=== PATIENT | male | born 1955 | race Caucasian/White ===

== ENCOUNTER → 2018-06-07 | Outpatient (CLI) | payer OTHER ==
[2015-09-26 20:30] VITALS: BP 151/77
[~2018-06-07] MED LIST: AMLO10TA2 PO; AMLO1CAP12 PO; ASPI-39 PO; AZEL137S3 NS; CELE200C PO; CYCL10TA2 PO; FEXO1TAB31 PO; FLUT16SP NS; FURO-68 PO; FURO-69 PO; MULT-658 PO; OLME1TAB23 PO; OXYC-327 PO; POTA20TA12 PO; POTA99TA10 PO; SIMV20TA3 PO; WARF-78 PO
--- NOTE | 2018-06-07 15:26 | KCIC ---
Left lower extremity venous duplex study 06/07/2018 Clinical History: Lower extremity pain and edema. Technique: Using a combination of real time ultrasound imaging and color-flow and pulse Doppler imaging techniques, including spectral analysis, graded compression and augmentation, duplex evaluation of the deep venous system of the left lower extremity was performed. Multiple images were obtained. Findings: There is no sonographic evidence of deep venous thrombosis involving the visualized deep venous structures of the left lower extremity Impression: No evidence of deep venous thrombosis involving the left lower extremity Electronically signed by: Collins Hester MD (06/07/2018 3:23 PM) [facility]
== END | disposition home or self-care (01) ==
LOC: KCIC US 14:16
PROVIDERS: ATTEND Internal Medicine
DX: M79.662 Pain in left lower leg (principal); M79.89 Other specified soft tissue disorders; I10 Essential (primary) hypertension; E78.5 Hyperlipidemia, unspecified
CPT/HCPCS: 93971

== ENCOUNTER 2018-07-20 07:50 | Outpatient (CLI) | payer OTHER ==
[~2018-07-20] VITALS: Ht 182.9 cm; Wt 157.9 kg
[2018-07-20] VITALS (8 sets, daily range): BP systolic 121–169; BP diastolic 61–96
[~2018-07-20 07:50] MED LIST changes: -AMLO10TA2 PO; +AMLO10TA6 PO
[2018-07-20] MEDS ORDERED: METF500T16 PO (08:13)
[2018-07-20] MEDS ORDERED: CYCL10TA2 PO (08:13)
[2018-07-20] MEDS ORDERED: MELO15TA23 PO (08:13)
[2018-07-20] MEDS ORDERED: EPIPEN 2-P0.3 MG/0.3 IJ (08:13)
[2018-07-20] MEDS ORDERED: OFLO5DRO7 EACH EAR (08:13)
[2018-07-20] MEDS ORDERED: VENTOLIN HFA18 GM INH (08:13)
[2018-07-20] MEDS ORDERED: COLC0.6T34 PO (08:13)
[2018-07-20] MEDS ORDERED: NAPR-514 PO (08:13)
[2018-07-20 08:16] LABS: BASO % 1 % (0-3); EOS # 0.2 x10^3/uL (0.0-0.7); EOS % 6 % (0-3); HEMATOCRIT 30.4 % (39.0-53.0); HEMOGLOBIN 10.1 g/dL (13.0-17.5); LYMPH # 1.1 x10^3/uL (1.0-4.8); LYMPH % 33 % (24-48); MEAN CORPUSCULAR HEMOGLOBIN 27 pg (25-35); MEAN CORPUSCULAR HGB CONC 33 g/dL (31-37); MEAN CORPUSCULAR VOLUME 82 fL (79-100); MONO # 0.2 x10^3/uL (0.0-1.1); MONO % 7 % (0-9); NEUT # 1.7 x10^3uL (1.8-7.7); NEUT % 53 % (31-73); PLATELET COUNT 262 x10^3/uL (140-400); RED BLOOD COUNT 3.73 x10^6/uL (4.30-5.70); WHITE BLOOD COUNT 3.3 x10^3/uL (4.0-11.0)
[2018-07-20 08:24] LABS: PROTHROMBIN TIME PATIENT 13.9 SEC (11.7-14.0)
[2018-07-20] MEDS ORDERED: LIDOCAINE WITH 8.4% SOD BICARB 3 ML DISP.SYRIN. ONE (09:08)
[2018-07-20] MEDS ORDERED: fentaNYL PF VIAL 100 MCG/2 ML VIAL ONE (09:10)
[2018-07-20] MEDS ORDERED: MIDAZOLAM HCL/PF 2 MG/2 ML VIAL. ONE (09:10)
[2018-07-20] MEDS ORDERED: LIDOCAINE WITH 8.4% SOD BICARB 3 ML DISP.SYRIN. IJ ONE (09:45)
[2018-07-20] MEDS ORDERED: MIDAZOLAM HCL/PF 2 MG/2 ML VIAL. IV ONE (09:45)
[2018-07-20] MEDS ORDERED: fentaNYL PF VIAL 100 MCG/2 ML VIAL IV ONE (09:45)
--- NOTE | 2018-07-20 10:41 | RAD ---
Metastatic skeletal survey, 07/20/2018: HISTORY: Multiple myeloma Multiple images of the bony skeleton were obtained with the following findings delineated: 1. A lateral view of the skull reveals multiple focal lytic lucencies compatible with the history of multiple myeloma. 2. An AP view of the chest reveals loss of definition of the right seventh rib posterolaterally raising the possibility of a lytic lesion. There is not optimally delineated due to the patient's size. No other rib abnormality is detected. 3. AP and lateral views of the cervical spine reveal moderate degenerative disc disease at C5-6. No definite lytic bone lesion is seen. 4. AP and lateral views of the thoracic spine reveal a mild scoliosis with mild scattered marginal spurs. No lytic bone lesion is seen. 5. AP and lateral views of the lumbar spine reveal moderate degenerative disc disease, worst at L2-3. There is moderate facet joint arthropathy in the lower lumbar spine. No destructive bony lesion is evident. 6. An AP view of the pelvis reveals a right total hip prosthesis. No destructive bony lesion is seen. 7. AP views of both humeri and forearms reveal several small lytic lesions, best seen in the mid left humerus and distal right humerus. 8. AP views of both femurs and lower legs reveal several small lytic lesions, best seen in the mid right femoral shaft and the proximal left fibula. IMPRESSION: Scattered lytic bony lesions in the skull and long bones as described above compatible with multiple myeloma. Electronically signed by: Edd Jimenez MD (07/20/2018 10:37 AM) [facility]
--- NOTE | 2018-07-20 10:42 | RAD ---
CT-guided bone marrow biopsy. 07/20/2018 10:37 AM Indication: ELEVATED BLOOD PROTEIN Discussion: The risks and benefits of the procedure, including but not limited to, bleeding and infection were discussed patient. Informed consent was obtained. The patient was brought to the CT scanner and placed in the prone position. A timeout procedure was performed. Lead Driver CT imaging of the pelvis demonstrated left ilium amenable to bone marrow biopsy. The overlying soft tissues were prepped and draped using maximum sterile barrier technique. 1% lidocaine without epinephrine was administered for local anesthesia. Under intermittent CT guidance, an OncControl needle was advanced into the bone marrow of the left iliac crest. 2 Aspirates and 1 core biopsy samples were obtained. Samples were delivered to pathology was present at the time of procedure. The needle was removed and manual pressure held to achieve hemostasis. No immediate complications were identified. The procedure was performed under conscious sedation including continuous cardiopulmonary monitoring via dedicated sedation nurse. Sedation time: 20 minutes Impression: Successful CT-guided bone marrow biopsy of the left iliac crest . PQRS Compliance Statement: One or more of the following individualized dose reduction techniques were utilized for this examination: 1. Automated exposure control 2. Adjustment of the mA and/or kV according to patient size 3. Use of iterative reconstruction technique
--- NOTE | 2018-07-26 19:08 | PATHOLOGY ---
[facility] Accession Number: [id number] . 01 Material submitted: . PART A: BONE MARROW BIOPSY PART B: BONE MARROW CLOT PART C: BONE MARROW ASPIRATE SLIDES PART D: PERIPHERAL SMEARS PART E: BONE MARROW FLOW . 01 Pre-operative diagnosis: . Elevated blood protein . 01 Clinical history: . Elevated blood protein . 02 Diagnosis: Peripheral smear: - Normocytic normochromic anemia, mild, with red cell rouleaux. - Leukopenia, mild. . Bone marrow, aspirate smears, clot section, and core biopsy: - Mild to focally moderately hypercellular marrow showing trilineage hematopoiesis, erythroid hyperplasia, no significant dyspoiesis, and interstitial and focal solid infiltrates of atypical plasma cells showing kappa light chain restriction - findings are compatible with a plasma cell neoplasm. See description comment. - Adequate to mildly increased reticuloendothelial iron stores. . (JPM:mml; 07/26/18) [facility]/07/26/2018 . 02 Comment: The peripheral smear shows a mild normocytic and normochromic anemia with red cell rouleaux and mild leukopenia. The bone marrow is mild to moderately hypercellular and shows trilineage hematopoiesis, erythroid hyperplasia, and interstitial and focal solid infiltrates of atypical plasma cells. The atypical plasma cells show immunophenotypic evidence of kappa light chain restriction. Plasma cells overall comprise approximately 40% of nucleated marrow cells. The findings are indicative of a plasma cell neoplasm and are consistent with plasma cell myeloma. Will need to correlate with other laboratory and radiologic findings for evidence of end-organ damage. . (JPM:mml; 07/26/18) . 02 Electronically signed: . Dayo Naranjo MD, Pathologist NPI- [id number] . 01 Gross description: . A. The specimen is received in formalin, labeled "Keo Pineda, BM BX" and consists of 2 bone cores measuring 0.8 cm and 1.3 cm in length and ranging from 0.2-0.3 cm in diameter. They are entirely submitted in A1 following decalcification. . B. The specimen is received in formalin, labeled "Tanner Pinedat, BM ASP clot" and consists of blood clot measuring 5.0 x 2.5 x 0.5 cm which is entirely submitted in B1-B2. (SDY; 07/20/2018) SYU/SYU . 02 Microscopic: . Laboratory Data: The WBC count is 3.3 K/CMM, and the automated WBC differential reveals 53% neutrophils, 33% lymphs, 7% monos, 6% eos, and 1% baso. The RBC count is 3.73 M/CMM, hemoglobin 10.1 G/DL, hematocrit 30.4%, MCV 82 FL, MCH 27 PG, MCHC 33 G/DL, and the RDW is 20%. The platelet count is 262 K/CMM. . Additional laboratory studies were obtained from Dr. Grijalva' office. The total protein is 11.7 G/DL, and albumin 2.7 G/DL. The creatinine is 0.95 MG/DL. The beta-2 microglobulin is 4.9 MG/L. Serum protein electrophoresis shows a probable monoclonal spike in the beta-gamma region. The paraprotein is 6.29 G/DL. Serum immunofixation shows IgG lambda paraprotein. The serum IgG is 6,954 MG/DL, IgA 24 MG/DL, and IgM less than 20 MG/DL. The kappa free light chain is 1.85 MG/DL, lambda free light chain 0.12 MG/DL, and the kappa/lambda free light chain ratio is 15.42. Urine immunofixation shows an IgG kappa paraprotein. . Peripheral Smear: The peripheral smear is reviewed. The WBC count is mildly decreased. The WBC differential reveals a predominance of segmented neutrophils, with a smaller population of lymphocytes and with several monocytes and eosinophils noted. Neutrophils do not show dysplastic changes. There is a rare macropolycyte. There is no significant neutrophilic left shift. There are no circulating blasts. There is no leukoerythroblastic reaction. The lymphocyte population consists predominantly of small lymphocytes. There are several medium-sized granular lymphocytes. There are no obvious circulating atypical plasma cells. Red blood cells appear normochromic. Red blood cells show mild to moderate anisocytosis and range from normocytic to mildly microcytic. Red blood cells show no significant poikilocytosis. There is red cell rouleax. Platelets appear normal in number and morphology with an occasional large platelet noted. . Aspirate Smears: Two Bucio's-stained and one iron-stained aspirate smears are examined. The smears contain multiple marrow particles. Overall, there is an erythroid hyperplasia. Erythroid maturation appears normoblastic. There are no megaloblastic or overt dysplastic changes. Granulopoiesis qualitatively appears normal. There is no significant left shift or dysplastic changes. Megakaryocytes are increased and are focally clustered. The megakaryocytes are of variable ploidy and both normal and abnormal morphology with some megakaryocytes having hypolobated nuclei. A few megakaryocytes show peripheral cytoplasmic vacuolization. There are foci of mild plasmacytosis showing up to 5%-10% plasma cells. There are also a few small cellular particles and immediately surrounding smears which show a predominance of plasma cells. The plasma cells show anisocytosis. There are enlarged atypical plasma cells which possess enlarged eccentric nuclei containing a nucleolus. Occasional binucleated plasma cells are noted. There is no increase of lymphocytes. There are no cells foreign to the marrow. The iron stain shows mildly increased reticuloendothelial iron stores. No ringed sideroblasts are identified. . Bone Marrow Biopsy and Clot Section: Sections of the bone marrow biopsy reveal bone marrow which ranges between 40-50% and 70-80% cellular. The clot sections contain multiple marrow particles which also range between 50% and 70-80% cellular. Most of the biopsy shows trilineage hematopoiesis with erythroid hyperplasia. Megakaryocytes are focally clustered and are of variable ploidy.There are focal small interstitial infiltrates of plasma cells, and there are two larger areas of sheet-like replacement by atypical plasma cells. The atypical plasma cells possess enlarged eccentric nuclei containing nucleoli. The clot section particles similarly reveal cellular hematopoietic tissue with foci of interstitial plasmacytosis in addition to scattered small particles composed of solid clusters of atypical plasma cells. There are no abnormal lymphoid aggregates, granulomas, or cells foreign to the marrow. To confirm flow cytometric findings and characterize the target cells in a tissue architectural context, immunohistochemical stains for CD138 and in situ hybridization for kappa and lambda light chain are obtained on the biopsy and clot sections and yield the following results: . CD138 (A1): Plasma cells positive having an interstitial distribution and focally present in solid clusters / sheets; plasma cells comprise approximately 40% of nucleated marrow cells. . [place] and lambda HERMANN (A1): Plasma cells show kappa light chain restriction. . CD138 (B1): Plasma cells positive having an interstitial distribution and focally present in small clusters; plasma cells overall comprise approximately 40% of nucleated marrow cells. . [place] and lambda HERMANN (B1): Plasma cells show kappa light chain restriction. . CD138 (B2): Plasma cells positive having an interstitial distribution and focally present in small clusters; plasma cells overall comprise approximately 40% of nucleated marrow cells. . [place] and lambda HERMANN (B2): Plasma cells show kappa light chain restriction. . A reticulin stain obtained on the biopsy shows focal mild increase of reticulin fibers, particularly in the area of diffuse marrow plasmacytosis. The iron stain of the clot section shows adequate to focally mildly increased reticuloendothelial iron stores. No ringed sideroblasts are identified. . Special Studies: Bone marrow submitted for flow cytometry has a viability of 99.2%. Granulocytes comprise 84.3% of total cells and show phenotypic evidence of maturation. Monocytes comprise 3.1% of total cells and co-express CD14 and CD64. CD45 dim, CD34 positive cells comprise 0.9% of total cells. There is a population of monoclonal plasma cells detected which comprise 3.0% of total cells. These plasma cells show cytoplasmic kappa light chain restriction and are CD19 negative, CD38 positive (bright), CD45 negative, CD56 positive, CD117 positive, and CD138 positive (moderate). Lymphocytes comprise 9.1% of total cells. T-cells comprise 86% of lymphoid cells and show a CD4/CD8 ratio of 3.0. NK-cells comprise 7% of lymphoid cells. Mature B-cells comprise 4.0% of lymphoid cells and are polyclonal with a kappa:lambda ratio of 1.6. . Bone marrow submitted for cytogenetic analysis shows a normal male karyotype in all cells analyzed. (JPM:misty/mml; 07/26/2018) . 02 Pathologist provided ICD-10: D47.Z9, D64.9, D72.819, D75.89 . 02 CPT . 624809, 978270, 106294, 178093, 638682, X26238, R97366, S15653, 057651, 511594, 915997 Specimen Comment: A courtesy copy of this report has been sent to Specimen Comment: [phone], , . Specimen Comment: Report sent to ,DR GRIJALVA / DR ROGEL Performed at: 01 [facility] [place] [id number] [facility] [address], [place] [id number] MD Randal Ceballos MD Phone: [phone] Performed at: 02 [facility] [place] [address] [place], [place] [id number] MD Dayo Naranjo MD Phone: [phone]
== END 2018-07-20 10:58 | disposition home or self-care (01) ==
LOC: INTRAD 07:50
PROVIDERS: ATTEND Internal Medicine Hematology & Oncology
DX: D72.819 Decreased white blood cell count, unspecified (principal); D64.89 Other specified anemias; E78.5 Hyperlipidemia, unspecified; I10 Essential (primary) hypertension; G47.30 Sleep apnea, unspecified; E11.9 Type 2 diabetes mellitus without complications; E66.9 Obesity, unspecified; M16.11 Unilateral primary osteoarthritis, right hip; Z96.641 Presence of right artificial hip joint; Z83.3 Family history of diabetes mellitus; Z79.899 Other long term (current) drug therapy; Z79.82 Long term (current) use of aspirin; Z79.01 Long term (current) use of anticoagulants
CPT/HCPCS: 36415; 38222; 77012; 77075; 85025; 85610; 88184; 88185; 88237; J2250; J3010; 99152

== ENCOUNTER 2019-03-07 07:43 | Outpatient (CLI) | payer OTHER ==
[~2019-03-07] VITALS: Ht 182.9 cm; Wt 164.7 kg
[2019-03-07] VITALS (9 sets, daily range): BP systolic 127–141; BP diastolic 61–89
[~2019-03-07 07:43] MED LIST changes: -AMLO10TA6 PO; +AMLO10TA8 PO; +COLC0.6T34 PO; +EPIPEN 2-P0.3 MG/0.3 IJ; +MELO15TA23 PO; +METF500T16 PO; +NAPR-514 PO; +OFLO5DRO7 EACH EAR; -OXYC-327 PO; +OXYC1TAB19 PO; +VENTOLIN HFA18 GM INH
[2019-03-07 08:13] LABS: BASO % 1 % (0-3); EOS # 0.1 x10^3/uL (0.0-0.7); EOS % 3 % (0-3); HEMATOCRIT 32.8 % (39.0-53.0); HEMOGLOBIN 10.9 g/dL (13.0-17.5); LYMPH # 0.8 x10^3/uL (1.0-4.8); LYMPH % 22 % (24-48); MEAN CORPUSCULAR HEMOGLOBIN 29 pg (25-35); MEAN CORPUSCULAR HGB CONC 33 g/dL (31-37); MEAN CORPUSCULAR VOLUME 87 fL (79-100); MONO # 0.3 x10^3/uL (0.0-1.1); MONO % 9 % (0-9); NEUT # 2.3 x10^3uL (1.8-7.7); NEUT % 66 % (31-73); PLATELET COUNT 276 x10^3/uL (140-400); RED BLOOD COUNT 3.76 x10^6/uL (4.30-5.70); RED CELL DISTRIBUTION WIDTH 17.6 % (11.5-14.5); WHITE BLOOD COUNT 3.5 x10^3/uL (4.0-11.0)
[2019-03-07 08:22] LABS: PROTHROMBIN TIME PATIENT 12.6 SEC (11.7-14.0)
[2019-03-07] MEDS ORDERED: LIDOCAINE WITH 8.4% SOD BICARB 3 ML DISP.SYRIN. ONE (08:23)
[2019-03-07] MEDS ORDERED: fentaNYL PF VIAL 100 MCG/2 ML VIAL ONE (08:26)
[2019-03-07] MEDS ORDERED: MIDAZOLAM HCL/PF 2 MG/2 ML VIAL. ONE ×2 (08:26→09:00)
[2019-03-07] MEDS ORDERED: MIDAZOLAM HCL/PF 2 MG/2 ML VIAL. IV ONE (08:30)
[2019-03-07] MEDS ORDERED: fentaNYL PF VIAL 100 MCG/2 ML VIAL IV ONE (08:30)
[2019-03-07] MEDS ORDERED: LIDOCAINE WITH 8.4% SOD BICARB 3 ML DISP.SYRIN. IJ ONE (08:30)
[2019-03-07] MEDS ORDERED: GABA300C18 PO (08:35)
[2019-03-07] MEDS ORDERED: OMEP20TA63 PO (08:35)
[2019-03-07] MEDS ORDERED: ALLO100T PO (08:35)
[2019-03-07] MEDS ORDERED: TRAM50TA PO (08:35)
[2019-03-07] MEDS ORDERED: SULF1TAB24 PO (08:35)
--- NOTE | 2019-03-07 10:20 | NUR ---
Discharge Note: LOBO SINGH Discharge instructions and discharge home medications reviewed with Patient and a copy given. All questions have been answered and understanding verbalized. The following instructions and handouts were given: Post Bone marrow biopsy, and post moderate sedation. Discontinued lines and drains: Right AC PIV with tip intact. Patient discharged to home with daughter Katerin via car.
--- NOTE | 2019-03-07 14:53 | RAD ---
CT-guided bone marrow biopsy. 03/07/2019 2:49 PM Indication: Multiple Myeloma Discussion: The risks and benefits of the procedure, including but not limited to, bleeding and infection were discussed patient. Informed consent was obtained. The patient was brought to the CT scanner and placed in the prone position. A timeout procedure was performed. Hotbed Lever Operator CT imaging of the pelvis demonstrated left ilium amenable to bone marrow biopsy. The overlying soft tissues were prepped and draped using maximum sterile barrier technique. 1% lidocaine without epinephrine was administered for local anesthesia. Under intermittent CT guidance, an OncControl needle was advanced into the bone marrow of the left iliac crest. 2 Aspirates and 1 core biopsy samples were obtained. Samples were delivered to pathology was present at the time of procedure. The needle was removed and manual pressure held to achieve hemostasis. No immediate complications were identified. The procedure was performed under conscious sedation including continuous cardiopulmonary monitoring via dedicated sedation nurse. Sedation time: 20 minutes Impression: Successful CT-guided bone marrow biopsy of the left iliac crest . PQRS Compliance Statement: One or more of the following individualized dose reduction techniques were utilized for this examination: 1. Automated exposure control 2. Adjustment of the mA and/or kV according to patient size 3. Use of iterative reconstruction technique
--- NOTE | 2019-03-16 11:07 | PATHOLOGY ---
[facility] Accession Number: [id number] . 01 Material submitted: . PART A: bone - BONE MARROW BIOPSY PART B: bone - BONE MARROW CLOT PART C: bone - BONE MARROW ASPIRATE SLIDES PART D: bone - PERIPHERAL BLOOD SMEARS PART E: bone - BONE MARROW FLOW . 01 Clinical history: . Multiple myeloma . 02 Diagnosis: Peripheral smear: - Normocytic normochromic anemia, mild. - Leukopenia, mild. . Bone marrow, aspirate smears, clot section, and core biopsy: - Variable normocellular to mildly hypercellular marrow showing trilineage hematopoiesis, no significant dyspoiesis, and a mild to focal moderate interstitial plasmacytosis comprised of atypical plasma cells showing kappa light chain restriction - findings compatible with residual plasma cell neoplasm. - Nearly absent stainable iron stores. . (JPM:re; 03/14/2019) [facility]/03/14/2019 . 02 Comment: The peripheral smear shows mild normocytic normochromic anemia and mild leukopenia. The bone marrow is mildly hypercellular and shows trilineage hematopoiesis, no significant dyspoiesis, and a mild to focal moderate interstitial plasmacytosis comprised of atypical plasma cells showing kappa light chain restriction. The biopsy discloses approximately 20-30% plasma cells, and the clot section discloses between 5% and 15% plasma cells. The findings are indicative of a plasma cell neoplasm and are consistent with residual involvement by plasma cell myeloma. (JPM:re; 03/14/2019) . Special stains: Reticulin stain on A1. Iron stain on B1 and C1. CD138 on A1 and B1. [place] and lambda HERMANN on A1. [place] and lambda HERMANN on B1. . 02 Electronically signed: . Dayo Naranjo MD, Pathologist NPI- [id number] . 01 Gross description: . A. The specimen is received in formalin, labeled "Keo Pineda BM BX". Received is a single needle core of light bennett bone measuring 1.4 cm in length by 0.3 cm in diameter. The specimen is submitted entirely in cassette A1, following light decalcification. . B. The specimen is received in formalin, labeled "Keo Pineda, BM aspirate clot". Received is blood coagulum measuring 3.0 x 2.4 x 0.3 cm in aggregate dimensions. The specimen is filtered and entirely submitted in cassette B1. (CAA; 03/07/2019) QAC/QAC . 02 Microscopic: . Laboratory Data: The WBC count is 3.5 K/CMM, and the automated WBC differential reveals 66% neutrophils, 22% lymphs, 9% monos, 3% eos, and 1% baso. The RBC count is 3.76 M/CMM, hemoglobin 10.9 G/DL, hematocrit 32.8%, MCV 87 FL, MCH 29 PG, MCHC 33 G/DL, and the RDW is 17.6%. The platelet count is 276 K/CMM. . Peripheral Smear: The peripheral smear is reviewed. The WBC count is mildly decreased. The WBC differential reveals a predominance of segmented neutrophils, with smaller populations of lymphocytes and monocytes and a few eosinophils noted. Neutrophils do not show dysplastic changes. There is no significant neutrophilic left shift. There are no circulating blasts. There is no leukoerythroblastic reaction. The lymphocyte population consists predominantly of small lymphocytes. There are several medium-sized granular lymphocytes noted. There are no obvious circulating myeloma cells. Red blood cells predominantly appear normochromic and normocytic. Red blood cells show mild anisocytosis. Red blood cells show minimal poikilocytosis comprised of a few ovalocytes and occasional teardrop red blood cells. Platelets are normal in number and morphology. . Aspirate Smears: Two Bucio's-stained and one iron-stained aspirate smears are examined. The smears contain several cellular marrow particles. The M/E ratio is on the order of 1-2:1. Erythroid maturation predominantly appears normoblastic. There are a few dysplastic erythroid precursors showing binucleation and irregular nuclear shapes. There are no megaloblastic or overt dysplastic changes. Granulopoiesis qualitatively appears normal. There is no significant left shift or dysplastic changes. There is no increase of blasts. Megakaryocytes appear adequate in number and are of variable ploidy. There are foci of mild plasmacytosis showing between 5% and 10% plasma cells. Other areas show a smaller proportion of plasma cells. There are atypical plasma cells. These plasma cells are enlarged, and possess enlarged eccentric nuclei containing a nucleolus. There is no increase of lymphocytes. There are no cells foreign to the marrow. The iron stained smear shows focal reticuloendothelial iron stores. No ringed sideroblasts are identified. . Bone marrow biopsy and clot sections: Sections of the bone marrow biopsy reveal segments of bone marrow and blood clot showing focal aspiration artifact. Preserved areas of the biopsy range between 10% and 60% cellular. The clot section contains multiple marrow particles which range between 20% and 60% cellular. There is trilineage hematopoiesis. There is a good admixture of erythroid and granulocytic precursors, which are present in varying stages of maturation. There is no apparent increase of blasts. Megakaryocytes appear adequate in number and are of variable ploidy. There are foci of perivascular and interstitial plasmacytosis with no areas of sheet-like replacement by plasma cells identified. There are atypical plasma cells present which have enlarged eccentric nuclei containing a nucleolus. There is a small discreet lymphoid aggregate present with the clot section composed predominantly of small lymphocytes having rounded to slightly irregular nuclei. There are no abnormal lymphoid aggregates, granulomas, or cells foreign to the marrow. . To confirm flow cytometric findings and characterize the target cells in a tissue architectural context, immunohistochemical stain for CD138 and in situ hybridization for kappa:lambda light chain are obtained on the biopsy and clot section and yield the following results: . CD138 (A1): Plasma cells positive scattered throughout marrow and focally having a perivascular and more solid interstitial distribution; plasma cells overall comprise 20-30% of nucleated marrow cells. . [place] and lambda HERMANN (A1): Plasma cells show kappa light chain restriction. . CD138 (B1): Plasma cells positive scattered throughout marrow and having a focal perivascular and interstitial distribution; plasma cells overall comprise between 5% and 15% of nucleated marrow cells. . [place] and lambda HERMANN (B1): Plasma cells show kappa light chain restriction. . A reticulin stain obtained on the biopsy shows a focal mild increase of reticulin fibers. The iron stain of the clot section shows nearly absent stainable iron. . Special studies: Bone marrow submitted for flow cytometry has a viability of 99.6%. Granulocytes comprise 84.4% of total cells and show phenotypic evidence of maturation. Monocytes comprise 2.2% of total cells. CD45 dim, CD34 positive cells comprise 0.9% of total cells. Lymphocytes comprise 4.9% of total cells. T-cells comprise 80% of lymphoid cells and show a CD4/CD8 ratio of about 0.5. NK-cells comprise 7% of lymphoid cells. Mature B-cells comprise 11% of lymphoid cells and are polyclonal with a kappa:lambda ratio of 1.7. There is a small population of monoclonal plasma cells, which comprise 0.5% of total cells. These plasma cells are CD38 (bright), CD56, and CD138 (moderate) positive and show cytoplasmic kappa light chain restriction. These plasma cells are CD19 and CD45 negative. . Bone marrow submitted for cytogenetic analysis reveals a normal male karyotype in all cells analyzed. (JPM:re/misty; 03/14/2019) . 02 Pathologist provided ICD-10: D64.9, D72.819, D72.822, D47.Z9 . 02 CPT . 191962, 884685, 248186, 528957, 738984, 059717, 104056, 463927, Y81840, U38035, B58267 Specimen Comment: A courtesy copy of this report has been sent to Specimen Comment: [phone], , . Specimen Comment: Report sent to ,DR DALE / DR ROGEL Performed at: 01 [facility] [address], [place], [place] [id number] MD Randal Ceballos MD Phone: [phone] Performed at: 02 [facility] [address] [place], [place] [id number] MD Dayo Naranjo MD Phone: [phone]
== END 2019-03-07 10:20 | disposition home or self-care (01) ==
LOC: INTRAD 07:43
PROVIDERS: ATTEND Internal Medicine Hematology
DX: C90.00 Multiple myeloma not having achieved remission (principal); Z79.01 Long term (current) use of anticoagulants; Z91.030 Bee allergy status; Z76.82 Awaiting organ transplant status; Z79.899 Other long term (current) drug therapy
CPT/HCPCS: 36415; 38222; 77012; 85025; 85610; 88184; 88185; 88237; 99152; J2250; J3010; 88305; 88311; 88313; 88342; 88364; 88365

== ENCOUNTER 2019-05-07 08:10 | Outpatient (CLI) | payer OTHER ==
[~2019-05-07] VITALS: Ht 182.9 cm; Wt 175.1 kg
[2019-05-07] VITALS (7 sets, daily range): BP systolic 117–174; BP diastolic 64–91
[~2019-05-07 08:10] MED LIST changes: +ALLO100T PO; -AMLO1CAP12 PO; +AMLO1CAP13 PO; +GABA300C18 PO; +OMEP20TA63 PO; +SULF1TAB24 PO; +TRAM50TA PO
[2019-05-07 08:54] LABS: HEMATOCRIT 36.9 % (39.0-53.0); HEMOGLOBIN 12.3 g/dL (13.0-17.5); MEAN CORPUSCULAR VOLUME 83 fL (79-100); RED BLOOD COUNT 4.43 x10^6/uL (4.30-5.70); WHITE BLOOD COUNT 2.2 x10^3/uL (4.0-11.0)
[2019-05-07 08:55] LABS: BASO % 1 % (0-3); EOS % 1 % (0-3); LYMPH # 0.6 x10^3/uL (1.0-4.8); LYMPH % 28 % (24-48); MEAN CORPUSCULAR HEMOGLOBIN 28 pg (25-35); MEAN CORPUSCULAR HGB CONC 33 g/dL (31-37); MONO # 0.3 x10^3/uL (0.0-1.1); MONO % 14 % (0-9); NEUT # 1.2 x10^3/uL (1.8-7.7); NEUT % 56 % (31-73); PLATELET COUNT 291 x10^3/uL (140-400); RED CELL DISTRIBUTION WIDTH 17.9 % (11.5-14.5)
[2019-05-07] MEDS ORDERED: ONDA4TAB12 PO (08:57)
[2019-05-07] MEDS ORDERED: DEXA0.5T PO (08:57)
[2019-05-07] MEDS ORDERED: ALPH100C PO (08:57)
[2019-05-07] MEDS ORDERED: ACYC400T PO (08:57)
[2019-05-07] MEDS ORDERED: ASPI325T8 PO (08:57)
[2019-05-07] MEDS ORDERED: MONT10TA49 PO (08:57)
[2019-05-07] MEDS ORDERED: FURO-69 PO (08:57)
[2019-05-07] MEDS ORDERED: PROC5TAB14 PO (08:57)
[2019-05-07] MEDS ORDERED: CALC500T54 PO (08:57)
[2019-05-07 09:05] LABS: PROTHROMBIN TIME PATIENT 12.1 SEC (11.7-14.0)
[2019-05-07] MEDS ORDERED: LIDOCAINE 1%/EPI 1:100,000 20 ML VIAL. ONE (09:15)
[2019-05-07] MEDS ORDERED: ceFAZolin 1GM IVPB FOR OMNI 100 ML IV ONE (09:56)
[2019-05-07] MEDS ORDERED: MIDAZOLAM HCL/PF 2 MG/2 ML VIAL. ONE ×2 (09:56→10:25)
[2019-05-07] MEDS ORDERED: fentaNYL PF VIAL 100 MCG/2 ML VIAL ONE (09:57)
[2019-05-07] MEDS ORDERED: ceFAZolin 2GM PREMIX 2 GM/50 ML BAG IV ONE (10:00)
[2019-05-07] MEDS ORDERED: LIDOCAINE 1%/EPI 1:100,000 20 ML VIAL. IJ ONE (10:00)
[2019-05-07] MEDS ORDERED: fentaNYL PF VIAL 100 MCG/2 ML VIAL IV ONE (10:00)
[2019-05-07] MEDS ORDERED: MIDAZOLAM HCL/PF 2 MG/2 ML VIAL. IV ONE (10:00)
--- NOTE | 2019-05-07 12:16 | RAD ---
Procedure: Ultrasound and fluoroscopically guided placement of right internal jugular power port.. 05/07/2019 12:12 PM Clinical Indication: MULTIPLE MYELOMA Sedation: Conscious sedation was administered for 30 minutes. The patient was monitored by a qualified independent observer throughout the time of sedation. Please refer to the medical record for exact doses of medications utilized to achieve moderate sedation. Fluoroscopy time: 1.6 minutes Dose area product: 24 Gycm2 Consent: The procedure was explained in its entirety to the patient or the patients designated it sales representative by a member of the treatment team, including a discussion of the risks, benefits and commonly accepted alternatives to the procedure, as well as the expected consequences of no therapy whatsoever. Discussion of the risks included, but was not limited to, those that are most frequent and those that are rare but possibly severe or life-threatening, as well as the possibility of unforeseen complications. Technique and Findings: All elements of maximal sterile barrier technique including the use of a cap, mask, sterile gown, sterile gloves, large sterile sheet, appropriate hand hygiene, and 2% chlorhexidine for cutaneous antisepsis (or acceptable alternative antiseptic per current guidelines) were followed for this procedure. Following informed consent, and a timeout procedure, the patient was prepped and draped in the usual sterile fashion. Ultrasound interrogation of the right neck revealed patency and compressibility of the right internal jugular vein. A 21-gauge micropuncture was then used to gain access to this vein under ultrasound guidance. A hard copy ultrasound image was recorded. The needle was exchanged over a wire for a sheath. A 1 inch incision was made several centimeters inferior to the venotomy site. A catheter was tunneled from this site dermatotomy site in the neck. Catheter was advanced through peel-away sheath such that its tip was in the proximal right atrium with the patient supine. The catheter was trimmed to length and connected to the port reservoir. The port was found to flush and aspirate normally. The final position of the catheter was confirmed by fluoroscopy, with tip at the cavoatrial junction. The wound was closed in layers using 4-0 Vicryl suture. Sterile dressings were applied. Impression: Successful ultrasound and fluoroscopically guided placement of a right internal jugular PowerPort
--- NOTE | 2019-05-07 12:43 | NUR ---
Discharge Note: LOBO SINGH Discharge instructions and discharge home medications reviewed with Patient and a copy given. All questions have been answered and understanding verbalized. The following instructions and handouts were given: moderate sedation and port care Discontinued lines and drains: right AC s/l removed with tip intact. Patient discharged to home with familt via private car in no apparent distress.
== END 2019-05-07 12:30 | disposition home or self-care (01) ==
LOC: INTRAD 08:10
PROVIDERS: ATTEND Internal Medicine Hematology & Oncology
DX: Z45.2 Encounter for adjustment and management of vascular access device (principal); C90.00 Multiple myeloma not having achieved remission; Z79.01 Long term (current) use of anticoagulants
CPT/HCPCS: 36415; 36561; 76937; 77001; 85025; 85610; C1751; C1788; C1892; J0690; J0696; J2250; J3010; J3490; 99152; 99153

== ENCOUNTER 2019-05-15 07:56 | Outpatient (CLI) | payer OTHER ==
[2019-05-15] VITALS (11 sets, daily range): BP systolic 116–142; BP diastolic 61–88
[~2019-05-15] VITALS: Ht 182.9 cm; Wt 174.6 kg
[~2019-05-15 07:56] MED LIST changes: +ACYC400T PO; +ALPH100C PO; +ASPI325T8 PO; +CALC500T54 PO; +DEXA0.5T PO; +MONT10TA49 PO; +ONDA4TAB12 PO; +PROC5TAB14 PO
[2019-05-15] MEDS ORDERED: INSU100I13 SQ (08:44)
[2019-05-15] MEDS ORDERED: GABA300C18 PO (08:44)
[2019-05-15] MEDS ORDERED: GLIP2.5T4 PO (08:44)
[2019-05-15] MEDS ORDERED: GLIP5TAB10 PO (08:44)
[2019-05-15] MEDS ORDERED: ACYC800T PO (08:44)
[2019-05-15] MEDS ORDERED: TRAM50TA PO (08:44)
[2019-05-15] MEDS ORDERED: METF10007 PO (08:44)
[2019-05-15] MEDS ORDERED: DEXAMETHASONE (09:05)
[2019-05-15] MEDS ORDERED: POMA1CAP PO ×2 (09:05→09:14)
[2019-05-15] MEDS ORDERED: DEXA4TAB PO ×2 (09:05)
[2019-05-15] MEDS ORDERED: OLME1TAB23 PO (09:05)
[2019-05-15] MEDS ORDERED: FLUT16SP NS (09:05)
[2019-05-15] MEDS ORDERED: FEXO1TAB31 PO (09:05)
[2019-05-15] MEDS ORDERED: AZEL137S3 NS (09:05)
[2019-05-15] MEDS ORDERED: VENTOLIN HFA18 GM INH (09:05)
[2019-05-15] MEDS ORDERED: OFLO5DRO7 EACH EAR (09:05)
[2019-05-15] MEDS ORDERED: POTA20PA21 PO (09:05)
[2019-05-15] MEDS ORDERED: AMLO10TA8 PO (09:05)
[2019-05-15] MEDS ORDERED: DARATUMUMAB IV (09:14)
[2019-05-15] MEDS ORDERED: CALC500T31 PO (09:14)
[2019-05-15] MEDS ORDERED: daratumumab (09:14)
[2019-05-15 09:32] LABS: BASO % 0 % (0-3); EOS % 0 % (0-3); HEMATOCRIT 35.4 % (39.0-53.0); HEMOGLOBIN 11.7 g/dL (13.0-17.5); LYMPH # 0.3 x10^3/uL (1.0-4.8); LYMPH % 8 % (24-48); MEAN CORPUSCULAR HEMOGLOBIN 28 pg (25-35); MEAN CORPUSCULAR HGB CONC 33 g/dL (31-37); MEAN CORPUSCULAR VOLUME 83 fL (79-100); MONO # 0.1 x10^3/uL (0.0-1.1); MONO % 3 % (0-9); NEUT # 3.2 x10^3/uL (1.8-7.7); NEUT % 88 % (31-73); PLATELET COUNT 280 x10^3/uL (140-400); RED BLOOD COUNT 4.25 x10^6/uL (4.30-5.70); RED CELL DISTRIBUTION WIDTH 18.2 % (11.5-14.5); WHITE BLOOD COUNT 3.6 x10^3/uL (4.0-11.0)
[2019-05-15] MEDS ORDERED: MIDAZOLAM HCL/PF 2 MG/2 ML VIAL. ONE (09:36)
[2019-05-15] MEDS ORDERED: fentaNYL PF VIAL 100 MCG/2 ML VIAL ONE (09:36)
[2019-05-15 09:46] LABS: PROTHROMBIN TIME PATIENT 12.8 SEC (11.7-14.0)
[2019-05-15] MEDS ORDERED: LIDOCAINE WITH 8.4% SOD BICARB 3 ML DISP.SYRIN. ONE (10:08)
[2019-05-15 10:09] LABS: % LYMPHS 8 % (24-48); % MONOS 2 % (0-10); % SEGS 90 % (35-66); PLT ESTIMATE ADEQUATE (ADEQUATE)
[2019-05-15 10:10] LABS: POLYCHROMASIA OCCASIONAL
[2019-05-15 10:11] LABS: ANISOCYTOSIS SLIGHT
[2019-05-15] MEDS ORDERED: MIDAZOLAM HCL/PF 2 MG/2 ML VIAL. IV ONE (10:45)
[2019-05-15] MEDS ORDERED: LIDOCAINE WITH 8.4% SOD BICARB 3 ML DISP.SYRIN. IJ ONE (10:45)
[2019-05-15] MEDS ORDERED: fentaNYL PF VIAL 100 MCG/2 ML VIAL IV ONE (10:45)
--- NOTE | 2019-05-15 12:11 | NUR ---
Discharge notes;Pt was discharged home. Pt is alert, oriented x 4. VSS. Pt ate lunch w/o problem. Pt's Port-A-cath was deaccessed. No heparin was locked. Discharge instructions ( activity, diet, medications, and F/U) were reviewed w/ pt. Pt verbalized understanding. Pt's belongings were returned to pt. Pt was taken to main lobby via w/c by this nurse.
--- NOTE | 2019-05-15 13:04 | RAD ---
CT-guided bone marrow biopsy. 05/15/2019 1:00 PM Indication: Multiple Myeloma Discussion: The risks and benefits of the procedure, including but not limited to, bleeding and infection were discussed patient. Informed consent was obtained. The patient was brought to the CT scanner and placed in the prone position. A timeout procedure was performed. Patch Driller CT imaging of the pelvis demonstrated left ilium amenable to bone marrow biopsy. The overlying soft tissues were prepped and draped using maximum sterile barrier technique. 1% lidocaine without epinephrine was administered for local anesthesia. Under intermittent CT guidance, an OncControl needle was advanced into the bone marrow of the left iliac crest. 2 Aspirates and 1 core biopsy samples were obtained. Samples were delivered to pathology was present at the time of procedure. The needle was removed and manual pressure held to achieve hemostasis. No immediate complications were identified. The procedure was performed under conscious sedation including continuous cardiopulmonary monitoring via dedicated sedation nurse. Sedation time: 20 minutes Impression: Successful CT-guided bone marrow biopsy of the left iliac crest . PQRS Compliance Statement: One or more of the following individualized dose reduction techniques were utilized for this examination: 1. Automated exposure control 2. Adjustment of the mA and/or kV according to patient size 3. Use of iterative reconstruction technique
== END 2019-05-15 12:17 | disposition home or self-care (01) ==
LOC: INTRAD 07:56
PROVIDERS: ATTEND Internal Medicine Hematology
DX: C90.00 Multiple myeloma not having achieved remission (principal); Z79.899 Other long term (current) drug therapy; Z79.01 Long term (current) use of anticoagulants
CPT/HCPCS: 36415; 38222; 77012; 85025; 85610; 88184; 88185; 88237; 88374; 99152; J2250; J3010; 19083; 76942; 85007

== ENCOUNTER 2019-05-18 16:20 | Emergency (ER) | payer OTHER ==
[~2019-05-18] VITALS: Ht 182.9 cm; Wt 173.3 kg
[2019-05-18 16:20] VITALS: BP 185/94
[~2019-05-18 16:20] MED LIST changes: +ACYC800T PO; +CALC500T31 PO; +DARATUMUMAB IV; +DEXA4TAB PO; +DEXAMETHASONE; +GLIP2.5T4 PO; +GLIP5TAB10 PO; +INSU100I13 SQ; +METF10007 PO; +POMA1CAP PO; +POTA20PA21 PO; +daratumumab
[2019-05-18] MEDS ORDERED: IV NORMAL SALINE 1000ML BAG 1,000 ML IV ONE (17:45)
[2019-05-18 17:57] LABS: BASO % 0 % (0-3); EOS % 0 % (0-3); HEMATOCRIT 34.9 % (39.0-53.0); HEMOGLOBIN 11.5 g/dL (13.0-17.5); LYMPH # 0.2 x10^3/uL (1.0-4.8); LYMPH % 6 % (24-48); MEAN CORPUSCULAR HEMOGLOBIN 28 pg (25-35); MEAN CORPUSCULAR HGB CONC 33 g/dL (31-37); MEAN CORPUSCULAR VOLUME 84 fL (79-100); MONO % 1 % (0-9); NEUT # 3.7 x10^3/uL (1.8-7.7); NEUT % 93 % (31-73); PLATELET COUNT 242 x10^3/uL (140-400); RED BLOOD COUNT 4.17 x10^6/uL (4.30-5.70); RED CELL DISTRIBUTION WIDTH 19.1 % (11.5-14.5)
[2019-05-18 18:07] LABS: CALCIUM 8.5 mg/dL (8.5-10.1); CREATININE 1.5 mg/dL (0.7-1.3); GFR 47.4; POTASSIUM 4.6 mmol/L (3.5-5.1)
--- NOTE | 2019-05-18 19:18 | PHYS DOC ---
Past Medical History Past Medical History: Cancer, Diabetes-Type II, Hypertension, Other Additional Past Medical Histor: GB PROBLEMS, OBESE (LEFTY GIANG APRN) Past Surgical History: Other Additional Past Surgical Histo: RT HIP (LEFTY GIANG APRN) Alcohol Use: None Drug Use: None (LEFTY GIANG APRN) Adult General Chief Complaint Chief Complaint: HYPERGLYCEMIA HPI HPI Patient is a 63 year old male with history of diabetes type 2, hypertension, lymphoma, on chemotherapy, who was sent to the emergency room to be put on a short acting insulin. Patient states he stated her on Solu-Medrol a couple days ago, he states while on Solu-Medrol they noted his blood sugars have been going up at 1720 he was at 570. He is currently on a long acting insulin. The oncologist requested him to come to the emergency room to be put on a short-acting insulin until he will be seen by the PCP. Patient states the PCP office was closed by the time they sent him to the ED at 4 45 pm (LEFTY GIANG APRN) Review of Systems Review of Systems Constitutional: Denies fever or chills [] Eyes: Denies change in visual acuity, redness, or eye pain [] HENT: Denies nasal congestion or sore throat [] Respiratory: Denies cough or shortness of breath [] Cardiovascular: No additional information not addressed in HPI [] GI: Denies abdominal pain, nausea, vomiting, bloody stools or diarrhea [] : Denies dysuria or hematuria [] Musculoskeletal: Denies back pain or joint pain [] Integument: Denies rash or skin lesions [] Neurologic: Denies headache, focal weakness or sensory changes [] Endocrine:hyperglycemia All other systems were reviewed and found to be within normal limits, except as documented in this note. (LEFTY GIANG APRN) Current Medications Current Medications Current Medications Medications (Trade) Dose Ordered Sig/Tiffany Start Time Stop Time Status Last Admin Dose Admin Sodium Chloride 1,000 ml @ 1,000 mls/hr 1X ONCE 05/18/19 17:45 05/18/19 18:44 DC 05/18/19 17:57 1,000 MLS/HR (SHEILA FREEMAN MD) Allergies Allergies Allergies Coded Allergies Type Severity Reaction Last Updated Verified venom-wasp Allergy Unknown 03/07/19 Yes (SHEILA FREEMAN MD) Physical Exam Physical Exam Constitutional: Well developed, well nourished, no acute distress, non-toxic appearance. [] HENT: Normocephalic, atraumatic, bilateral external ears normal, oropharynx moist, no oral exudates, nose normal. [] Eyes: PERRLA, EOMI, conjunctiva normal, no discharge. [] Neck: Normal range of motion, no tenderness, supple, no stridor. [] Cardiovascular:Heart rate regular rhythm, no murmur [] Lungs & Thorax: Bilateral breath sounds clear to auscultation [] Abdomen: Bowel sounds normal, soft, no tenderness, no masses, no pulsatile masses. [] Skin: Warm, dry, no erythema, no rash. [] Back: No tenderness, no CVA tenderness. [] Extremities: No tenderness, no cyanosis, no clubbing, ROM intact, no edema. [] Neurologic: Alert and oriented X 3, normal motor function, normal sensory function, no focal deficits noted. [] Psychologic: Affect normal, judgement normal, mood normal. [] (LEFTY GIANG APRN) Current Patient Data Vital Signs Vital Signs Date Time Temp Pulse Resp B/P (MAP) Pulse Ox O2 Delivery O2 Flow Rate FiO2 05/18/19 16:20 98.0 104 20 185/94 (124) 96 Room Air 98.0 (SHEILA FREEMAN MD) Lab Values Laboratory Tests Test 05/18/19 17:40 05/18/19 19:10 White Blood Count 4.0 x10^3/uL (4.0-11.0) Red Blood Count 4.17 x10^6/uL (4.30-5.70) L Hemoglobin 11.5 g/dL (13.0-17.5) L Hematocrit 34.9 % (39.0-53.0) L Mean Corpuscular Volume 84 fL (79-100) Mean Corpuscular Hemoglobin 28 pg (25-35) Mean Corpuscular Hemoglobin Concent 33 g/dL (31-37) Red Cell Distribution Width 19.1 % (11.5-14.5) H Platelet Count 242 x10^3/uL (140-400) Neutrophils (%) (Auto) 93 % (31-73) H Lymphocytes (%) (Auto) 6 % (24-48) L Monocytes (%) (Auto) 1 % (0-9) Eosinophils (%) (Auto) 0 % (0-3) Basophils (%) (Auto) 0 % (0-3) Neutrophils # (Auto) 3.7 x10^3/uL (1.8-7.7) Lymphocytes # (Auto) 0.2 x10^3/uL (1.0-4.8) L Monocytes # (Auto) 0.0 x10^3/uL (0.0-1.1) Eosinophils # (Auto) 0.0 x10^3/uL (0.0-0.7) Basophils # (Auto) 0.0 x10^3/uL (0.0-0.2) Sodium Level 133 mmol/L (136-145) L Potassium Level 4.6 mmol/L (3.5-5.1) Chloride Level 98 mmol/L (98-107) Carbon Dioxide Level 22 mmol/L (21-32) Anion Gap 13 (6-14) Blood Urea Nitrogen 19 mg/dL (8-26) Creatinine 1.5 mg/dL (0.7-1.3) H Estimated GFR (Cockcroft-Gault) 47.4 Glucose Level 440 mg/dL (70-99) H Calcium Level 8.5 mg/dL (8.5-10.1) Glucose (Fingerstick) 352 mg/dL (70-99) H Laboratory Tests 05/18/19 17:40 Laboratory Tests 05/18/19 17:40 (SHEILA FREEMAN MD) EKG EKG [] (LEFTY GIANG APRN) Radiology/Procedures Radiology/Procedures [] (LEFTY GIANG APRN) Course & Med Decision Making Course & Med Decision Making Pertinent Labs and Imaging studies reviewed. (See chart for details) This is a 63-year-old male patient who presents to the ED today to be put on a short-acting insulin. See history of present illness. Blood glucose in the ED is 440 with normal anion gap. Consulted with Dr. Fairchild who gave me rx to write patient for sliding scale NovoLog. D/c to home (LEFTY GIANG APRN) Course & Med Decision Making Staff Physician Addendum: I was working in the ER during the course of this patient's visit. I was av ailable for consultation as needed, but I was not directly involved in the care of this patient. (SHEILA FREEMAN MD) Dragon Disclaimer Dragon Disclaimer This electronic medical record was generated, in whole or in part, using a voice recognition dictation system. (LEFTY GIANG APRN) Departure Departure Impression: Primary Impression: Hyperglycemia Disposition: HOME, SELF-CARE Condition: STABLE Referrals: DESTINEE ROBLES MD (PCP) follow up on Tuesday Patient Instructions: Hyperglycemia, [id number] Additional Instructions: We put you on short acting insulin sliding scale. Continue using your long- acting insulin as well. Follow-up with your own doctor on Tuesday. LEFTY GIANG APRN May 18, 2019 19:18 SHEILA FREEMAN MD May 19, 2019 00:55
== END 2019-05-18 19:31 | disposition home or self-care (01) ==
LOC: ER 16:20
DX: E11.65 Type 2 diabetes mellitus with hyperglycemia (principal); I10 Essential (primary) hypertension; E66.9 Obesity, unspecified; Z68.43 Body mass index [BMI] 50.0-59.9, adult
CPT/HCPCS: 36415; 80048; 82962; 85025; 96360; 99284; J7030

== ENCOUNTER 2019-11-01 08:19 | Outpatient (CLI) | payer OTHER ==
[2019-11-01] VITALS (9 sets, daily range): BP systolic 146–215; BP diastolic 73–94
[~2019-11-01] VITALS: Ht 182.9 cm; Wt 181.9 kg
[~2019-11-01 08:19] MED LIST changes: +SIMV20TA18 PO; -SIMV20TA3 PO
[2019-11-01] MEDS ORDERED: POMA4CAP PO (09:01)
[2019-11-01] MEDS ORDERED: FURO40TA4 PO (09:01)
[2019-11-01] MEDS ORDERED: INSU100V13 SQ (09:02)
[2019-11-01] MEDS ORDERED: FURO-69 PO (09:02)
[2019-11-01 09:03] LABS: BASO % 0 % (0-3); EOS # 0.6 x10^3/uL (0.0-0.7); EOS % 16 % (0-3); HEMATOCRIT 33.6 % (39.0-53.0); HEMOGLOBIN 10.9 g/dL (13.0-17.5); LYMPH # 0.5 x10^3/uL (1.0-4.8); LYMPH % 12 % (24-48); MEAN CORPUSCULAR HEMOGLOBIN 28 pg (25-35); MEAN CORPUSCULAR HGB CONC 33 g/dL (31-37); MEAN CORPUSCULAR VOLUME 85 fL (79-100); MONO # 0.7 x10^3/uL (0.0-1.1); MONO % 17 % (0-9); NEUT # 2.1 x10^3/uL (1.8-7.7); NEUT % 54 % (31-73); PLATELET COUNT 186 x10^3/uL (140-400); RED BLOOD COUNT 3.96 x10^6/uL (4.30-5.70); RED CELL DISTRIBUTION WIDTH 19.8 % (11.5-14.5); WHITE BLOOD COUNT 3.8 x10^3/uL (4.0-11.0)
[2019-11-01] MEDS ORDERED: MAGN400T5 PO (09:14)
[2019-11-01] MEDS ORDERED: CYCL10TA2 PO (09:14)
[2019-11-01] MEDS ORDERED: fentaNYL PF VIAL 100 MCG/2 ML VIAL IV ONE (09:15)
[2019-11-01] MEDS ORDERED: LIDOCAINE WITH 8.4% SOD BICARB 3 ML DISP.SYRIN. IJ ONE (09:15)
[2019-11-01] MEDS ORDERED: MIDAZOLAM HCL/PF 2 MG/2 ML VIAL. IV ONE (09:15)
[2019-11-01] MEDS ORDERED: fentaNYL PF VIAL 100 MCG/2 ML VIAL ONE (09:16)
[2019-11-01] MEDS ORDERED: MIDAZOLAM HCL/PF 2 MG/2 ML VIAL. ONE (09:16)
[2019-11-01] MEDS ORDERED: LIDOCAINE WITH 8.4% SOD BICARB 3 ML DISP.SYRIN. ONE (09:24)
[2019-11-01 09:47] LABS: PROTHROMBIN TIME PATIENT 11.8 SEC (11.7-14.0)
--- NOTE | 2019-11-01 11:12 | NUR ---
Discharge Note: LOBO SINGH Discharge instructions and discharge home medications reviewed with patient and Spouse and a copy given. All questions have been answered and understanding verbalized. Patient ate breakfast with no difficulties. The following instructions and handouts were given: Moderate sedation and bone marrow bviopsy care. Discontinued lines and drains: right chest arnaldo cath deaccessed, bandaid in place clean dry intact. Patient discharged to home with via wheelchair to private vehicle.
--- NOTE | 2019-11-01 12:31 | RAD ---
CT-guided bone marrow biopsy. 11/01/2019 10:28 AM Indication: MULTIPLE MYELOMA Discussion: The risks and benefits of the procedure, including but not limited to, bleeding and infection were discussed patient. Informed consent was obtained. The patient was brought to the CT scanner and placed in the prone position. A timeout procedure was performed. Telephone Sales Representative CT imaging of the pelvis demonstrated left ilium amenable to bone marrow biopsy. The overlying soft tissues were prepped and draped using maximum sterile barrier technique. 1% lidocaine without epinephrine was administered for local anesthesia. Under intermittent CT guidance, an OncControl needle was advanced into the bone marrow of the left iliac crest. 2 Aspirates and 1 core biopsy samples were obtained. Samples were delivered to pathology was present at the time of procedure. The needle was removed and manual pressure held to achieve hemostasis. No immediate complications were identified. The procedure was performed under conscious sedation including continuous cardiopulmonary monitoring via dedicated sedation nurse. Sedation time: 20 minutes Impression: Successful CT-guided bone marrow biopsy of the left iliac crest . PQRS Compliance Statement: One or more of the following individualized dose reduction techniques were utilized for this examination: 1. Automated exposure control 2. Adjustment of the mA and/or kV according to patient size 3. Use of iterative reconstruction technique
== END 2019-11-01 12:36 | disposition home or self-care (01) ==
LOC: INTRAD 08:19
PROVIDERS: ATTEND Internal Medicine Hematology & Oncology
DX: C90.00 Multiple myeloma not having achieved remission (principal); Z79.899 Other long term (current) drug therapy; Z79.01 Long term (current) use of anticoagulants
CPT/HCPCS: 36415; 38222; 77012; 85025; 85610; 88184; 88185; 88237; 99152; J2250; J3010

== ENCOUNTER → 2019-11-07 | Outpatient (CLI) | payer OTHER ==
[2019-11-01 11:05] VITALS: BP 168/94
[~2019-11-07] MED LIST changes: +FURO40TA4 PO; +INSU100V13 SQ; +MAGN400T5 PO; +POMA4CAP PO
[2019-11-07 12:07] LABS: BASO % 0 % (0-3); EOS # 0.5 x10^3/uL (0.0-0.7); EOS % 11 % (0-3); HEMATOCRIT 34.5 % (39.0-53.0); HEMOGLOBIN 11.3 g/dL (13.0-17.5); LYMPH # 0.5 x10^3/uL (1.0-4.8); LYMPH % 12 % (24-48); MEAN CORPUSCULAR HEMOGLOBIN 28 pg (25-35); MEAN CORPUSCULAR HGB CONC 33 g/dL (31-37); MEAN CORPUSCULAR VOLUME 85 fL (79-100); MONO # 0.7 x10^3/uL (0.0-1.1); MONO % 15 % (0-9); NEUT # 2.7 x10^3/uL (1.8-7.7); NEUT % 61 % (31-73); PLATELET COUNT 248 x10^3/uL (140-400); RED BLOOD COUNT 4.04 x10^6/uL (4.30-5.70); WHITE BLOOD COUNT 4.4 x10^3/uL (4.0-11.0)
[2019-11-07 12:14] LABS: ALBUMIN 3.1 g/dL (3.4-5.0); ALBUMIN/GLOBULIN RATIO 0.9 (1.0-1.7); CALCIUM 8.7 mg/dL (8.5-10.1); CREATININE 0.9 mg/dL (0.7-1.3); GFR 85.2; POTASSIUM 3.8 mmol/L (3.5-5.1); TOTAL BILIRUBIN 0.3 mg/dL (0.2-1.0); TOTAL PROTEIN 6.5 g/dL (6.4-8.2)
[2019-11-09 11:12] LABS: KAPPA FREE 6.9 mg/L (3.3-19.4); LAMBDA FREE 2.3 mg/L (5.7-26.3)
[2019-11-09 12:10] LABS: ALBUM 3.1 g/dL (2.9-4.4); ALPHA 1 0.3 g/dL (0.0-0.4); ALPHA 2 0.8 g/dL (0.4-1.0); BETA 0.9 g/dL (0.7-1.3); GAMMA 0.8 g/dL (0.4-1.8); SPEP AG RATIO 1.1 (0.7-1.7)
[2019-11-09 14:10] LABS: COMMENT IMMUNOFIX SERUM Note: (.); IMMUNOGLOBULIN A 12 mg/dL (61-437); IMMUNOGLOBULIN G 860 mg/dL (700-1600); IMMUNOGLOBULIN M <5 mg/dL (20-172)
== END | disposition home or self-care (01) ==
LOC: LAB 10:42
PROVIDERS: ATTEND Internal Medicine Hematology & Oncology
DX: C90.00 Multiple myeloma not having achieved remission (principal)
CPT/HCPCS: 36415; 80053; 82784; 83520; 84165; 85025; 86334

== ENCOUNTER → 2019-12-04 | Outpatient (CLI) | payer OTHER ==
[2019-11-09 12:19] VITALS: BP 148/78
[2019-12-04 12:02] LABS: BASO % 0 % (0-3); EOS # 1.3 x10^3/uL (0.0-0.7); EOS % 17 % (0-3); HEMATOCRIT 34.9 % (39.0-53.0); HEMOGLOBIN 11.3 g/dL (13.0-17.5); LYMPH # 0.7 x10^3/uL (1.0-4.8); LYMPH % 9 % (24-48); MEAN CORPUSCULAR HEMOGLOBIN 27 pg (25-35); MEAN CORPUSCULAR HGB CONC 32 g/dL (31-37); MEAN CORPUSCULAR VOLUME 85 fL (79-100); MONO # 1.4 x10^3/uL (0.0-1.1); MONO % 18 % (0-9); NEUT # 4.3 x10^3/uL (1.8-7.7); NEUT % 56 % (31-73); PLATELET COUNT 259 x10^3/uL (140-400); RED BLOOD COUNT 4.11 x10^6/uL (4.30-5.70); RED CELL DISTRIBUTION WIDTH 19.5 % (11.5-14.5); WHITE BLOOD COUNT 7.7 x10^3/uL (4.0-11.0)
[2019-12-04 13:03] LABS: % BANDS 2 % (0-9); % BASOS 1 % (0-3); % EOS 18 % (0-5); % LYMPHS 9 % (24-48); % MONOS 9 % (0-10); % SEGS 61 % (35-66); ANISOCYTOSIS SLIGHT; OVALOCYTES OCC; PLT ESTIMATE ADEQUATE (ADEQUATE)
[2019-12-04 13:04] LABS: POLYCHROMASIA OCCASIONAL
== END | disposition home or self-care (01) ==
LOC: LAB 11:40
PROVIDERS: ATTEND Nurse Practitioner Adult Health
DX: C90.00 Multiple myeloma not having achieved remission (principal)
CPT/HCPCS: 36415; 85007; 85025

== ENCOUNTER → 2019-12-26 | Outpatient (CLI) | payer OTHER ==
[2019-12-14 11:23] VITALS: BP 108/41
[2019-12-26 09:46] LABS: ALBUMIN/GLOBULIN RATIO 0.8 (1.0-1.7); CALCIUM 8.6 mg/dL (8.5-10.1); CREATININE 1.2 mg/dL (0.7-1.3); GFR 61.1; POTASSIUM 3.9 mmol/L (3.5-5.1); TOTAL BILIRUBIN 0.1 mg/dL (0.2-1.0); TOTAL PROTEIN 6.7 g/dL (6.4-8.2)
[2019-12-26 09:56] LABS: CHOLESTEROL/HDL RATIO 3.5
== END | disposition home or self-care (01) ==
LOC: LAB 08:47
PROVIDERS: ATTEND Nurse Practitioner Family
DX: C90.00 Multiple myeloma not having achieved remission (principal); E11.9 Type 2 diabetes mellitus without complications; I10 Essential (primary) hypertension
CPT/HCPCS: 36415; 80053; 80061; 84443

== ENCOUNTER → 2019-12-26 | Outpatient (CLI) | payer OTHER ==
[2019-12-14 11:23] VITALS: BP 108/41
[2019-12-26 09:41] LABS: BASO # 0.1 x10^3/uL (0.0-0.2); BASO % 1 % (0-3); EOS # 0.2 x10^3/uL (0.0-0.7); EOS % 4 % (0-3); HEMATOCRIT 34.4 % (39.0-53.0); HEMOGLOBIN 11.1 g/dL (13.0-17.5); LYMPH % 22 % (24-48); MEAN CORPUSCULAR HEMOGLOBIN 27 pg (25-35); MEAN CORPUSCULAR HGB CONC 32 g/dL (31-37); MEAN CORPUSCULAR VOLUME 85 fL (79-100); MONO # 0.3 x10^3/uL (0.0-1.1); MONO % 6 % (0-9); NEUT # 2.9 x10^3/uL (1.8-7.7); NEUT % 67 % (31-73); PLATELET COUNT 359 x10^3/uL (140-400); RED BLOOD COUNT 4.07 x10^6/uL (4.30-5.70); RED CELL DISTRIBUTION WIDTH 19.9 % (11.5-14.5); WHITE BLOOD COUNT 4.4 x10^3/uL (4.0-11.0)
[2019-12-26 09:44] LABS: ALBUMIN/GLOBULIN RATIO 0.8 (1.0-1.7); CALCIUM 8.6 mg/dL (8.5-10.1); CREATININE 1.2 mg/dL (0.7-1.3); GFR 61.1; POTASSIUM 3.9 mmol/L (3.5-5.1); TOTAL BILIRUBIN 0.2 mg/dL (0.2-1.0); TOTAL PROTEIN 6.6 g/dL (6.4-8.2)
== END | disposition home or self-care (01) ==
LOC: LAB 08:54
PROVIDERS: ATTEND Internal Medicine Hematology & Oncology
DX: C90.00 Multiple myeloma not having achieved remission (principal)
CPT/HCPCS: 36415; 80053; 85025

== ENCOUNTER 2019-12-28 08:20 | Outpatient (CLI) | payer OTHER ==
[2019-12-28] VITALS (7 sets, daily range): BP systolic 120–167; BP diastolic 67–85
[~2019-12-28] VITALS: Ht 182.9 cm; Wt 180.5 kg
[2019-12-28 08:58] LABS: PROTHROMBIN TIME PATIENT 12.2 SEC (11.7-14.0)
[2019-12-28] MEDS ORDERED: LIDOCAINE 1%/EPI 1:100,000 20 ML VIAL. ONE (09:15)
[2019-12-28] MEDS ORDERED: fentaNYL PF VIAL 100 MCG/2 ML VIAL IV ONE (09:45)
[2019-12-28] MEDS ORDERED: MIDAZOLAM HCL/PF 2 MG/2 ML VIAL. IV ONE (09:45)
[2019-12-28] MEDS: LIDOCAINE 1%/EPI 1:100,000 20 ML VIAL. INJ ONE ×2 (09:45→10:15)
[2019-12-28] MEDS ORDERED: MIDAZOLAM HCL/PF 2 MG/2 ML VIAL. ONE (09:46)
[2019-12-28] MEDS ORDERED: fentaNYL PF VIAL 100 MCG/2 ML VIAL ONE (09:47)
--- NOTE | 2019-12-28 12:23 | NUR ---
Discharge Note: LOBO SINGH Discharge instructions and discharge home medications reviewed with Patient and a copy given. All questions have been answered and understanding verbalized. The following instructions and handouts were given: moderate sedation,incision care Discontinued lines and drains: Peripheral IV intact. Patient discharged to Home or Self Care withFamily Membervia Wheelchair
--- NOTE | 2019-12-31 13:32 | RAD ---
Revision of right internal jugular PowerPort 12/31/2019 INDICATION: Catheter malposition Discussion: The procedure was explained in its entirety to the patient or the patients designated eligibility services representative by a member of the treatment team, including a discussion of the risks, benefits and commonly accepted alternatives to the procedure, as well as the expected consequences of no therapy whatsoever. Discussion of the risks included, but was not limited to, those that are most frequent and those that are rare but possibly severe or life-threatening, as well as the possibility of unforeseen complications. All elements of maximal sterile barrier technique including the use of a cap, mask, sterile gown, sterile gloves, large sterile sheet, appropriate hand hygiene, and 2% chlorhexidine for cutaneous antisepsis (or acceptable alternative antiseptic per current guidelines) were followed for this procedure. 1% lidocaine was administered for local anesthesia. A small incision was made over the port reservoir. The pre-existing port reservoir was removed. The catheter was retracted, and a guidewire advanced through the catheter into the IVC. The catheter was repositioned into the proximal right atrium. The catheter was connected to the new reservoir. The new port was found to flush and aspirate normally. The wound was closed in layers using 4-0 Vicryl suture. No immediate complications were identified. Total fluoroscopy time: 1.4 MINUTES Dose area product: 16 Gycm2 The procedures performed under conscious sedation including continuous cardiopulmonary monitoring via dedicated sedation nurse. [id number] sedation time: 30 minutes Impression: Revision of right internal jugular PowerPort
== END 2019-12-28 12:10 | disposition home or self-care (01) ==
LOC: INTRAD 08:20
PROVIDERS: ATTEND Internal Medicine Hematology & Oncology
DX: T82.524A Displacement of infusion catheter, initial encounter (principal); I25.10 Atherosclerotic heart disease of native coronary artery without angina pectoris; M10.9 Gout, unspecified; E11.42 Type 2 diabetes mellitus with diabetic polyneuropathy; Z79.01 Long term (current) use of anticoagulants; Z96.641 Presence of right artificial hip joint; Z79.84 Long term (current) use of oral hypoglycemic drugs; Y83.8 Other surgical procedures as the cause of abnormal reaction of the patient, or of later complication, without mention of misadventure at the time of the procedure; Y92.89 Other specified places as the place of occurrence of the external cause
CPT/HCPCS: 36415; 36582; 85610; 99152; 99153; C1751; C1769; J0696; J2250; J3010; J3490

== ENCOUNTER → 2020-01-02 | Outpatient (CLI) | payer OTHER ==
[2019-12-28 11:50] VITALS: BP 123/74
[2020-01-02 11:48] LABS: BASO % 1 % (0-3); EOS # 0.4 x10^3/uL (0.0-0.7); EOS % 8 % (0-3); HEMATOCRIT 34.4 % (39.0-53.0); HEMOGLOBIN 11.2 g/dL (13.0-17.5); LYMPH # 0.6 x10^3/uL (1.0-4.8); LYMPH % 11 % (24-48); MEAN CORPUSCULAR HEMOGLOBIN 27 pg (25-35); MEAN CORPUSCULAR HGB CONC 33 g/dL (31-37); MEAN CORPUSCULAR VOLUME 85 fL (79-100); MONO # 0.3 x10^3/uL (0.0-1.1); MONO % 6 % (0-9); NEUT # 4.3 x10^3/uL (1.8-7.7); NEUT % 75 % (31-73); PLATELET COUNT 243 x10^3/uL (140-400); RED BLOOD COUNT 4.07 x10^6/uL (4.30-5.70); RED CELL DISTRIBUTION WIDTH 20.5 % (11.5-14.5); WHITE BLOOD COUNT 5.7 x10^3/uL (4.0-11.0)
[2020-01-02 12:06] LABS: ALBUMIN 2.9 g/dL (3.4-5.0); ALBUMIN/GLOBULIN RATIO 0.8 (1.0-1.7); CALCIUM 8.6 mg/dL (8.5-10.1); GFR 75.5; MAGNESIUM 1.6 mg/dL (1.8-2.4); POTASSIUM 3.8 mmol/L (3.5-5.1); TOTAL BILIRUBIN 0.2 mg/dL (0.2-1.0); TOTAL PROTEIN 6.5 g/dL (6.4-8.2)
[2020-01-02 12:44] LABS: ANISOCYTOSIS PRESENT; PLT ESTIMATE ADEQUATE (ADEQUATE)
== END | disposition home or self-care (01) ==
LOC: LAB 11:18
PROVIDERS: ATTEND Internal Medicine Hematology & Oncology
DX: C90.00 Multiple myeloma not having achieved remission (principal)
CPT/HCPCS: 36415; 80053; 83735; 85025

== ENCOUNTER → 2020-04-23 | Outpatient (CLI) | payer OTHER ==
[2020-03-28 16:22] VITALS: BP 138/81
[~2020-04-23] MED LIST changes: -WARF-78 PO; +WARF5TAB2 PO
[2020-04-23 10:32] LABS: BASO # 0.1 x10^3/uL (0.0-0.2); BASO % 1 % (0-3); EOS # 0.2 x10^3/uL (0.0-0.7); EOS % 3 % (0-3); HEMOGLOBIN 10.9 g/dL (13.0-17.5); LYMPH # 0.7 x10^3/uL (1.0-4.8); LYMPH % 13 % (24-48); MEAN CORPUSCULAR HEMOGLOBIN 28 pg (25-35); MEAN CORPUSCULAR HGB CONC 33 g/dL (31-37); MEAN CORPUSCULAR VOLUME 85 fL (79-100); MONO # 0.8 x10^3/uL (0.0-1.1); MONO % 15 % (0-9); NEUT # 3.8 x10^3/uL (1.8-7.7); NEUT % 68 % (31-73); PLATELET COUNT 272 x10^3/uL (140-400); RED CELL DISTRIBUTION WIDTH 19.3 % (11.5-14.5); WHITE BLOOD COUNT 5.6 x10^3/uL (4.0-11.0)
[2020-04-23 10:46] LABS: ALBUMIN 2.9 g/dL (3.4-5.0); CALCIUM 8.5 mg/dL (8.5-10.1); CREATININE 1.3 mg/dL (0.7-1.3); DIRECT BILIRUBIN 0.1 mg/dL (0.0-0.2); GFR 55.8; TOTAL BILIRUBIN 0.2 mg/dL (0.2-1.0); TOTAL PROTEIN 6.1 g/dL (6.4-8.2)
== END | disposition home or self-care (01) ==
LOC: ONCLAB 10:14
PROVIDERS: ATTEND Physician Assistant
DX: C90.00 Multiple myeloma not having achieved remission (principal)
CPT/HCPCS: 36415; 80048; 80076; 83615; 85025

== ENCOUNTER → 2020-05-21 | Outpatient (CLI) | payer OTHER ==
[2020-03-28 16:22] VITALS: BP 138/81
[2020-05-21 09:55] LABS: BASO % 1 % (0-3); EOS # 0.2 x10^3/uL (0.0-0.7); EOS % 3 % (0-3); HEMATOCRIT 34.5 % (39.0-53.0); HEMOGLOBIN 11.3 g/dL (13.0-17.5); LYMPH # 0.7 x10^3/uL (1.0-4.8); LYMPH % 14 % (24-48); MEAN CORPUSCULAR HEMOGLOBIN 28 pg (25-35); MEAN CORPUSCULAR HGB CONC 33 g/dL (31-37); MEAN CORPUSCULAR VOLUME 85 fL (79-100); MONO # 0.7 x10^3/uL (0.0-1.1); MONO % 13 % (0-9); NEUT # 3.6 x10^3/uL (1.8-7.7); NEUT % 69 % (31-73); PLATELET COUNT 309 x10^3/uL (140-400); RED BLOOD COUNT 4.06 x10^6/uL (4.30-5.70); RED CELL DISTRIBUTION WIDTH 19.1 % (11.5-14.5); WHITE BLOOD COUNT 5.2 x10^3/uL (4.0-11.0)
[2020-05-21 10:21] LABS: ALBUMIN 2.9 g/dL (3.4-5.0); ALBUMIN/GLOBULIN RATIO 0.9 (1.0-1.7); CALCIUM 9.2 mg/dL (8.5-10.1); CREATININE 1.2 mg/dL (0.7-1.3); GFR 61.1; TOTAL BILIRUBIN 0.2 mg/dL (0.2-1.0); TOTAL PROTEIN 6.2 g/dL (6.4-8.2)
[2020-05-21 10:25] LABS: POTASSIUM 2.9 mmol/L (3.5-5.1)
[2020-05-23 16:11] LABS: ALBUM 3.1 g/dL (2.9-4.4); ALPHA 1 0.2 g/dL (0.0-0.4); ALPHA 2 0.9 g/dL (0.4-1.0); BETA 0.8 g/dL (0.7-1.3); GAMMA 0.6 g/dL (0.4-1.8); PROTEIN TOTAL 5.6 g/dL (6.0-8.5); SPEP AG RATIO 1.2 (0.7-1.7)
== END | disposition home or self-care (01) ==
LOC: ONCLAB 08:56
PROVIDERS: ATTEND Internal Medicine Hematology & Oncology
DX: C90.00 Multiple myeloma not having achieved remission (principal)
CPT/HCPCS: 36415; 80053; 84165; 85025

== ENCOUNTER → 2020-06-09 | Outpatient (CLI) | payer OTHER ==
[2020-03-28 16:22] VITALS: BP 138/81
[~2020-06-09] MED LIST changes: +CYAN1TAB28 PO; +CYAN25008 PO; +DEXA4TAB63 PO; +GUAI400T78 PO; +INSU100V6 SQ; +IPRA0.2S5 NEB; +LATA2.5D3 EACHEYE; +LIRA0.6P2 SQ; +POTA10TA12 PO; +[UNRECOGNIZED DRUG - CODE]
== END ==
LOC: LAB 09:23
PROVIDERS: ATTEND Ophthalmology
DX: Z01.812 Encounter for preprocedural laboratory examination (principal); Z20.828 Contact with and (suspected) exposure to other viral communicable diseases
CPT/HCPCS: U0003-CS

== ENCOUNTER 2020-06-11 09:59 | Day surgery (SDC) | payer OTHER ==
[~2020-06-11 09:59] MED LIST changes: +CHONDROIT-SOD-HYALURONATE KIT. ONE; +CHONDROITIN-SOD-HYALURONATE 0.5 ML DISP.SYRIN. ONE; +CIPROFLOXACIN 0.3% OPHTH SOLUTION 5ML BOTTLE. OD ONE; +IV RINGERS,LACTATED 1000ML 1,000 ML IV SCH; +LIDOCAINE 1% PF 2 ML VIAL. ONE; +LIDOCAINE 2% JELLY 6ML IN APPLICATOR. OD ONE; +NEO/POLYMYX/DEXAMETH OPHTH OINTMENT 3.5GM TUBE. ONE; +PROPARACAINE 0.5% OPHTH SOLUTION 15ML BOTTLE. OD ONE
[2020-06-11] MEDS: PHENYLEPHRINE 10% OPHTH SOLUTION 5ML BOTTLE. OD SCH ×3 (10:45→10:55)
[2020-06-11] MEDS: CYCLOPENTOLATE 1% OPHTH SOLUTION 2ML BOTTLE. OD SCH ×3 (10:45→10:55)
[2020-06-11] MEDS ORDERED: MIDAZOLAM HCL/PF 2 MG/2 ML VIAL. ONE (11:19)
[2020-06-11 12:36] VITALS: BP 124/57
--- NOTE | 2020-06-11 12:52 | OP ---
DATE OF SURGERY: 06/11/2020 PREOPERATIVE DIAGNOSES: 1. Open-angle glaucoma of the right eye. 2. Cataract of the right eye. SURGEON: Ashu Rodrigues MD ANESTHESIA: Topical with monitored anesthesia care. PROCEDURES: 1. [place] Dual blade goniotomy of the right eye. 2. Cataract extraction of the right eye. INDICATION: Painless progressive visual loss and visually significant cataract and difficulty reading and elevated intraocular pressure. DESCRIPTION OF PROCEDURE: The right eye was prepped with Betadine in the usual sterile fashion and draped. A paracentesis was performed followed by instillation of 1% preservative-free lidocaine. A temporal clear corneal incision was made followed by instillation of viscoelastic. The head and microscope were repositioned to visualize the anterior chamber angle and blade was used to create a goniotomy of approximately 2 clock hours in the temporal quadrant. The head and microscope were repositioned and viscoelastic instilled in the anterior chamber and a capsulorrhexis was performed. Hydrodissection was done followed by the phacoemulsification, handpiece used to remove the nucleus in a modified stop and chop fashion. The I/A handpiece was used to remove the remainder of the cortex. Viscoelastic was injected in the capsular bag and an [place] model [id number] with a power of 12.5 diopters was placed into the capsular bag and balanced salt solution was used to hydrate the corneal wounds. The viscoelastic was evacuated with the I/A handpiece and once no leak was noted, Maxitrol was placed on the eye and the eye shielded and the patient was sent to the recovery room uneventfully. ASHU RODRIGUES MD DR: NELLIE/jenaro JOB#: [id number] / [id number]
[2020-06-11] MEDS ORDERED: HEPARIN PF 500 UNIT/5 ML DISP.SYRIN. IVP ONE (13:15)
== END 2020-06-11 13:27 | disposition home or self-care (01) ==
LOC: SURG 09:59
PROVIDERS: ATTEND Ophthalmology
DX: H40.10X0 Unspecified open-angle glaucoma, stage unspecified (principal); H26.8 Other specified cataract; I10 Essential (primary) hypertension; E11.9 Type 2 diabetes mellitus without complications; Z88.8 Allergy status to other drugs, medicaments and biological substances; Z79.899 Other long term (current) drug therapy; Z79.82 Long term (current) use of aspirin; Z83.3 Family history of diabetes mellitus; Z83.6 Family history of other diseases of the respiratory system; Z79.84 Long term (current) use of oral hypoglycemic drugs
CPT/HCPCS: 65820; 66984; 82962; C1780; J0171; J0690; J1580; J1642; J2250; J3490

== ENCOUNTER 2020-06-18 10:00 | Day surgery (SDC) | payer OTHER ==
[~2020-06-18 10:00] MED LIST changes: -CHONDROIT-SOD-HYALURONATE KIT. ONE; -CHONDROITIN-SOD-HYALURONATE 0.5 ML DISP.SYRIN. ONE; -CIPROFLOXACIN 0.3% OPHTH SOLUTION 5ML BOTTLE. OD ONE; +CIPROFLOXACIN 0.3% OPHTH SOLUTION 5ML BOTTLE. OS ONE; +CYCLOPENTOLATE 1% OPHTH SOLUTION 2ML BOTTLE. OS ONE; +HYDROmorphone 2 MG/ML VIAL IV PRN; +LIDOCAINE 1% PF 2 ML VIAL. ID PRN; -LIDOCAINE 1% PF 2 ML VIAL. ONE; +LIDOCAINE 2% JELLY 6ML IN APPLICATOR. MM ONE; -LIDOCAINE 2% JELLY 6ML IN APPLICATOR. OD ONE; +MORPHINE SULFATE 2 MG/ML VIAL. IV PRN; -NEO/POLYMYX/DEXAMETH OPHTH OINTMENT 3.5GM TUBE. ONE; +ONDANSETRON PF 4 MG/2 ML VIAL. IV PRN; +PHENYLEPHRINE 10% OPHTH SOLUTION 5ML BOTTLE. OS ONE; +PROCHLORPERAZINE 10 MG/2 ML VIAL. IV PRN; -PROPARACAINE 0.5% OPHTH SOLUTION 15ML BOTTLE. OD ONE; +PROPARACAINE 0.5% OPHTH SOLUTION 15ML BOTTLE. OS ONE; +fentaNYL PF VIAL 100 MCG/2 ML VIAL IV PRN
[2020-06-18] MEDS ORDERED: INSULIN LISPRO 100 UNIT/ML 3ML VIAL for OP,RR ONLY. SQ PRN (10:45)
[2020-06-18] MEDS ORDERED: LIDOCAINE 2% JELLY 6ML IN APPLICATOR. ONE (11:41)
[2020-06-18] MEDS ORDERED: NEO/POLYMYX/DEXAMETH OPHTH OINTMENT 3.5GM TUBE. ONE (11:41)
[2020-06-18] MEDS ORDERED: BALANCED SALT IRRIG OPHTH SOLN 15 ML BOTTLE. ONE (11:41)
[2020-06-18] MEDS ORDERED: CHONDROITIN-SOD-HYALURONATE 0.5 ML DISP.SYRIN. ONE (11:42)
[2020-06-18] MEDS ORDERED: CHONDROIT-SOD-HYALURONATE KIT. ONE (11:42)
[2020-06-18] MEDS ORDERED: LIDOCAINE 1%/PHENYLEPH 1.5% PF OPHTH 1 ML VIAL. ONE (11:42)
[2020-06-18] MEDS ORDERED: HEPARIN PF 500 UNIT/5 ML DISP.SYRIN. IVP ONE (12:21)
[2020-06-18 12:58] VITALS: BP 117/65
--- NOTE | 2020-06-18 14:52 | OP ---
DATE OF SURGERY: 06/18/2020 PREOPERATIVE DIAGNOSIS: 1. Mild open-angle glaucoma of the left eye. 2. Cataract of the left eye. PROCEDURE: 1. [place] Dual blade goniotomy of the left eye. 2. Cataract extraction with posterior chamber intraocular lens implantation of the left eye. SURGEON: Ashu Rodrigues MD ANESTHESIA: Peribulbar with monitored anesthesia care. DESCRIPTION OF PROCEDURE: The left eye was prepped with Betadine in the usual sterile fashion and draped. A paracentesis was performed followed by instillation of preservative-free phenylephrine and lidocaine. Viscoat was injected in the anterior chamber, following the temporal clear corneal incision and a capsulorrhexis was performed followed by hydrodissection and hydroexpression of the nucleus. Viscoat was placed both anterior and posterior to the nucleus and it was evacuated with the phacoemulsification handpiece. The I/A handpiece was used to remove the remainder of the cortex. Please note that the goniotomy had been performed prior to the cataract extraction with the head and microscope repositioned to visualize the anterior chamber angle and the [place] Dual blade used to excise approximately 2 clock hours of the trabecular mesh work in the inferior nasal quadrant. Once the cortex had been removed Viscoat was injected in the anterior chamber. An [place] model [id number] with a power of 11.5 diopters was placed into the capsular bag. Balanced salt solution was used to hydrate the corneal wounds and the viscoelastic evacuated with the I/A handpiece. Once no leak was noted, Maxitrol was placed on the eye and the eye shielded and the patient was sent to the recovery room uneventfully. ASHU RODRIGUES MD DR: NELLIE/jenaro JOB#: [id number] / [id number]
== END 2020-06-18 13:20 | disposition home or self-care (01) ==
LOC: SURG 10:00
PROVIDERS: ATTEND Ophthalmology
DX: H26.8 Other specified cataract (principal); H40.10X0 Unspecified open-angle glaucoma, stage unspecified; I10 Essential (primary) hypertension; E11.36 Type 2 diabetes mellitus with diabetic cataract; Z83.3 Family history of diabetes mellitus; Z88.8 Allergy status to other drugs, medicaments and biological substances; Z79.899 Other long term (current) drug therapy; Z79.84 Long term (current) use of oral hypoglycemic drugs
CPT/HCPCS: 66984; 82962; C1780; J0171; J0690; J1580; J3490; J1642

== ENCOUNTER → 2020-06-20 | Outpatient (CLI) | payer OTHER ==
[2020-06-18 12:58] VITALS: BP 117/65
[~2020-06-20] MED LIST changes: -CIPROFLOXACIN 0.3% OPHTH SOLUTION 5ML BOTTLE. OS ONE; -CYCLOPENTOLATE 1% OPHTH SOLUTION 2ML BOTTLE. OS ONE; -HYDROmorphone 2 MG/ML VIAL IV PRN; -IV RINGERS,LACTATED 1000ML 1,000 ML IV SCH; -LIDOCAINE 1% PF 2 ML VIAL. ID PRN; -LIDOCAINE 2% JELLY 6ML IN APPLICATOR. MM ONE; -MORPHINE SULFATE 2 MG/ML VIAL. IV PRN; -ONDANSETRON PF 4 MG/2 ML VIAL. IV PRN; -PHENYLEPHRINE 10% OPHTH SOLUTION 5ML BOTTLE. OS ONE; -PROCHLORPERAZINE 10 MG/2 ML VIAL. IV PRN; -PROPARACAINE 0.5% OPHTH SOLUTION 15ML BOTTLE. OS ONE; -fentaNYL PF VIAL 100 MCG/2 ML VIAL IV PRN
[2020-06-20 09:39] LABS: BASO % 1 % (0-3); EOS # 0.3 x10^3/uL (0.0-0.7); EOS % 5 % (0-3); HEMATOCRIT 35.1 % (39.0-53.0); HEMOGLOBIN 11.1 g/dL (13.0-17.5); LYMPH # 0.8 x10^3/uL (1.0-4.8); LYMPH % 15 % (24-48); MEAN CORPUSCULAR HEMOGLOBIN 27 pg (25-35); MEAN CORPUSCULAR HGB CONC 32 g/dL (31-37); MEAN CORPUSCULAR VOLUME 86 fL (79-100); MONO # 0.8 x10^3/uL (0.0-1.1); MONO % 15 % (0-9); NEUT # 3.5 x10^3/uL (1.8-7.7); NEUT % 64 % (31-73); PLATELET COUNT 328 x10^3/uL (140-400); RED BLOOD COUNT 4.07 x10^6/uL (4.30-5.70); RED CELL DISTRIBUTION WIDTH 19.6 % (11.5-14.5); WHITE BLOOD COUNT 5.5 x10^3/uL (4.0-11.0)
[2020-06-20 09:54] LABS: CALCIUM 9.2 mg/dL (8.5-10.1); CREATININE 1.5 mg/dL (0.7-1.3); GFR 47.3; POTASSIUM 3.2 mmol/L (3.5-5.1)
[2020-06-20 09:59] LABS: ALBUMIN/GLOBULIN RATIO 0.9 (1.0-1.7); TOTAL BILIRUBIN 0.2 mg/dL (0.2-1.0); TOTAL PROTEIN 6.5 g/dL (6.4-8.2)
[2020-06-24 15:12] LABS: ALBUM 3.1 g/dL (2.9-4.4); ALPHA 1 0.2 g/dL (0.0-0.4); ALPHA 2 1.1 g/dL (0.4-1.0); BETA 0.8 g/dL (0.7-1.3); GAMMA 0.6 g/dL (0.4-1.8); PROTEIN TOTAL 5.7 g/dL (6.0-8.5); SPEP AG RATIO 1.2 (0.7-1.7)
== END | disposition home or self-care (01) ==
LOC: ONCLAB 09:25
PROVIDERS: ATTEND Internal Medicine Hematology & Oncology
DX: C90.00 Multiple myeloma not having achieved remission (principal)
CPT/HCPCS: 36415; 80053; 83520; 84165; 85025

== ENCOUNTER → 2020-07-18 | Outpatient (CLI) | payer OTHER ==
[2020-06-18 12:58] VITALS: BP 117/65
[2020-07-18 09:24] LABS: BASO % 1 % (0-3); EOS # 0.2 x10^3/uL (0.0-0.7); EOS % 5 % (0-3); HEMATOCRIT 33.6 % (39.0-53.0); LYMPH # 1.4 x10^3/uL (1.0-4.8); LYMPH % 34 % (24-48); MEAN CORPUSCULAR HEMOGLOBIN 28 pg (25-35); MEAN CORPUSCULAR HGB CONC 33 g/dL (31-37); MEAN CORPUSCULAR VOLUME 84 fL (79-100); MONO # 0.6 x10^3/uL (0.0-1.1); MONO % 14 % (0-9); NEUT # 1.9 x10^3/uL (1.8-7.7); NEUT % 46 % (31-73); PLATELET COUNT 224 x10^3/uL (140-400); RED BLOOD COUNT 3.99 x10^6/uL (4.30-5.70); RED CELL DISTRIBUTION WIDTH 19.7 % (11.5-14.5); WHITE BLOOD COUNT 4.2 x10^3/uL (4.0-11.0)
[2020-07-18 09:33] LABS: CALCIUM 8.4 mg/dL (8.5-10.1); CREATININE 1.2 mg/dL (0.7-1.3); GFR 61.1; POTASSIUM 3.5 mmol/L (3.5-5.1)
[2020-07-18 09:40] LABS: ALBUMIN 2.9 g/dL (3.4-5.0); ALBUMIN/GLOBULIN RATIO 0.9 (1.0-1.7); TOTAL BILIRUBIN 0.2 mg/dL (0.2-1.0); TOTAL PROTEIN 6.1 g/dL (6.4-8.2)
[2020-07-20 02:06] LABS: KAPPA FREE 7.1 mg/L (3.3-19.4); KAPPA LAMBDA RATIO 4.18 (0.26-1.65); LAMBDA FREE 1.7 mg/L (5.7-26.3)
[2020-07-21 19:09] LABS: ALPHA 1 0.2 g/dL (0.0-0.4); BETA 0.9 g/dL (0.7-1.3); GAMMA 0.5 g/dL (0.4-1.8); PROTEIN TOTAL 5.7 g/dL (6.0-8.5); SPEP AG RATIO 1.1 (0.7-1.7)
== END | disposition home or self-care (01) ==
LOC: ONCLAB 08:55
PROVIDERS: ATTEND Internal Medicine Hematology & Oncology
DX: C90.00 Multiple myeloma not having achieved remission (principal)
CPT/HCPCS: 36415; 80053; 83520; 84165; 85025

== ENCOUNTER → 2020-08-15 | Outpatient (CLI) | payer OTHER ==
[~2020-08-15] MED LIST changes: +AMLO-187 PO; -AMLO10TA8 PO
[2020-08-15 09:22] LABS: BASO % 1 % (0-3); EOS # 0.5 x10^3/uL (0.0-0.7); EOS % 15 % (0-3); HEMATOCRIT 33.3 % (39.0-53.0); HEMOGLOBIN 10.8 g/dL (13.0-17.5); LYMPH # 0.8 x10^3/uL (1.0-4.8); LYMPH % 23 % (24-48); MEAN CORPUSCULAR HEMOGLOBIN 27 pg (25-35); MEAN CORPUSCULAR HGB CONC 32 g/dL (31-37); MEAN CORPUSCULAR VOLUME 84 fL (79-100); MONO # 0.6 x10^3/uL (0.0-1.1); MONO % 17 % (0-9); NEUT # 1.5 x10^3/uL (1.8-7.7); NEUT % 44 % (31-73); PLATELET COUNT 198 x10^3/uL (140-400); RED BLOOD COUNT 3.96 x10^6/uL (4.30-5.70); RED CELL DISTRIBUTION WIDTH 19.6 % (11.5-14.5); WHITE BLOOD COUNT 3.4 x10^3/uL (4.0-11.0)
[2020-08-15 09:31] LABS: CALCIUM 8.7 mg/dL (8.5-10.1); CREATININE 1.3 mg/dL (0.7-1.3); GFR 55.6; POTASSIUM 3.3 mmol/L (3.5-5.1)
[2020-08-15 09:36] LABS: ALBUMIN 2.8 g/dL (3.4-5.0); TOTAL BILIRUBIN 0.1 mg/dL (0.2-1.0); TOTAL PROTEIN 5.7 g/dL (6.4-8.2)
[2020-08-17 09:10] LABS: KAPPA FREE 6.9 mg/L (3.3-19.4); KAPPA LAMBDA RATIO 4.06 (0.26-1.65); LAMBDA FREE 1.7 mg/L (5.7-26.3)
== END ==
LOC: ONCLAB 09:05
PROVIDERS: ATTEND Internal Medicine Hematology & Oncology
DX: C90.00 Multiple myeloma not having achieved remission (principal)
CPT/HCPCS: 36415; 80053; 83520; 84165; 85025

== ENCOUNTER → 2020-09-19 | Outpatient (CLI) | payer OTHER ==
[2020-09-19 09:19] LABS: BASO # 0.1 x10^3/uL (0.0-0.2); BASO % 1 % (0-3); EOS # 0.2 x10^3/uL (0.0-0.7); EOS % 3 % (0-3); HEMATOCRIT 33.7 % (39.0-53.0); HEMOGLOBIN 10.6 g/dL (13.0-17.5); LYMPH # 1.3 x10^3/uL (1.0-4.8); LYMPH % 21 % (24-48); MEAN CORPUSCULAR HEMOGLOBIN 27 pg (25-35); MEAN CORPUSCULAR HGB CONC 31 g/dL (31-37); MEAN CORPUSCULAR VOLUME 85 fL (79-100); MONO # 1.1 x10^3/uL (0.0-1.1); MONO % 17 % (0-9); NEUT # 3.6 x10^3/uL (1.8-7.7); NEUT % 58 % (31-73); PLATELET COUNT 352 x10^3/uL (140-400); RED BLOOD COUNT 3.98 x10^6/uL (4.30-5.70); RED CELL DISTRIBUTION WIDTH 21.3 % (11.5-14.5); WHITE BLOOD COUNT 6.2 x10^3/uL (4.0-11.0)
[2020-09-19 09:30] LABS: CALCIUM 8.9 mg/dL (8.5-10.1); CREATININE 1.1 mg/dL (0.7-1.3); GFR 67.4; POTASSIUM 3.5 mmol/L (3.5-5.1)
[2020-09-19 09:36] LABS: TOTAL BILIRUBIN 0.1 mg/dL (0.2-1.0)
[2020-09-22 11:10] LABS: KAPPA LAMBDA RATIO 2.11 (0.26-1.65); LAMBDA FREE 1.9 mg/L (5.7-26.3)
[2020-09-22 16:15] LABS: ALBUM 3.4 g/dL (2.9-4.4); ALPHA 1 0.2 g/dL (0.0-0.4); ALPHA 2 0.9 g/dL (0.4-1.0); BETA 0.9 g/dL (0.7-1.3); GAMMA 0.5 g/dL (0.4-1.8); PROTEIN TOTAL 5.9 g/dL (6.0-8.5); SPEP AG RATIO 1.4 (0.7-1.7)
== END ==
LOC: ONCLAB 09:06
PROVIDERS: ATTEND Internal Medicine Hematology & Oncology
DX: C90.00 Multiple myeloma not having achieved remission (principal)
CPT/HCPCS: 36415; 80053; 83520; 84165; 85025

== ENCOUNTER → 2020-10-24 | Outpatient (CLI) | payer OTHER ==
[~2020-10-24] MED LIST changes: +ACYC-12 PO; -ACYC400T PO; -ACYC800T PO; +ACYC800T88 PO; +AZIT250T6 PO; +AZIT500T4 PO; +DULA1.5P SQ; +PRED20TA PO
[2020-10-24 08:34] LABS: BASO # 0.1 x10^3/uL (0.0-0.2); BASO % 1 % (0-3); EOS # 0.3 x10^3/uL (0.0-0.7); EOS % 4 % (0-3); HEMATOCRIT 34.3 % (39.0-53.0); HEMOGLOBIN 10.8 g/dL (13.0-17.5); LYMPH # 1.2 x10^3/uL (1.0-4.8); LYMPH % 17 % (24-48); MEAN CORPUSCULAR HEMOGLOBIN 27 pg (25-35); MEAN CORPUSCULAR HGB CONC 32 g/dL (31-37); MEAN CORPUSCULAR VOLUME 84 fL (79-100); MONO # 0.5 x10^3/uL (0.0-1.1); MONO % 7 % (0-9); NEUT % 71 % (31-73); PLATELET COUNT 377 x10^3/uL (140-400); RED BLOOD COUNT 4.07 x10^6/uL (4.30-5.70); RED CELL DISTRIBUTION WIDTH 20.6 % (11.5-14.5); WHITE BLOOD COUNT 7.1 x10^3/uL (4.0-11.0)
[2020-10-24 08:42] LABS: CALCIUM 9.2 mg/dL (8.5-10.1); CREATININE 1.4 mg/dL (0.7-1.3); POTASSIUM 3.4 mmol/L (3.5-5.1)
[2020-10-24 08:48] LABS: ALBUMIN/GLOBULIN RATIO 0.9 (1.0-1.7); TOTAL BILIRUBIN 0.3 mg/dL (0.2-1.0); TOTAL PROTEIN 6.4 g/dL (6.4-8.2)
[2020-10-25 23:27] LABS: KAPPA FREE 3.2 mg/L (3.3-19.4); KAPPA LAMBDA RATIO >2.13 (0.26-1.65); LAMBDA FREE <1.5 mg/L (5.7-26.3)
[2020-10-27 17:10] LABS: ALBUM 3.1 g/dL (2.9-4.4); ALPHA 1 0.2 g/dL (0.0-0.4); BETA 0.9 g/dL (0.7-1.3); GAMMA 0.6 g/dL (0.4-1.8); PROTEIN TOTAL 5.9 g/dL (6.0-8.5); SPEP AG RATIO 1.1 (0.7-1.7)
== END ==
LOC: ONCLAB 08:06
PROVIDERS: ATTEND Internal Medicine Hematology & Oncology
DX: C90.00 Multiple myeloma not having achieved remission (principal)
CPT/HCPCS: 36415; 80053; 83520; 84165; 85025

== ENCOUNTER → 2020-11-21 | Outpatient (CLI) | payer OTHER ==
[2020-11-21 08:41] LABS: BASO % 1 % (0-3); EOS # 0.2 x10^3/uL (0.0-0.7); EOS % 3 % (0-3); HEMATOCRIT 33.1 % (39.0-53.0); HEMOGLOBIN 10.6 g/dL (13.0-17.5); LYMPH # 0.8 x10^3/uL (1.0-4.8); LYMPH % 14 % (24-48); MEAN CORPUSCULAR HEMOGLOBIN 26 pg (25-35); MEAN CORPUSCULAR HGB CONC 32 g/dL (31-37); MEAN CORPUSCULAR VOLUME 83 fL (79-100); MONO # 0.8 x10^3/uL (0.0-1.1); MONO % 14 % (0-9); NEUT # 3.7 x10^3/uL (1.8-7.7); NEUT % 68 % (31-73); PLATELET COUNT 348 x10^3/uL (140-400); RED BLOOD COUNT 4.01 x10^6/uL (4.30-5.70); RED CELL DISTRIBUTION WIDTH 20.3 % (11.5-14.5); WHITE BLOOD COUNT 5.4 x10^3/uL (4.0-11.0)
[2020-11-21 09:03] LABS: CREATININE 1.2 mg/dL (0.7-1.3); POTASSIUM 3.3 mmol/L (3.5-5.1)
[2020-11-21 09:06] LABS: ALBUMIN 2.8 g/dL (3.4-5.0); TOTAL BILIRUBIN 0.2 mg/dL (0.2-1.0); TOTAL PROTEIN 5.7 g/dL (6.4-8.2)
[2020-11-21 11:17] LABS: OVALOCYTES FEW
[2020-11-21 11:18] LABS: POLYCHROMASIA SLIGHT
[2020-11-21 11:21] LABS: ANISOCYTOSIS SLIGHT; PLT ESTIMATE ADEQUATE (ADEQUATE)
[2020-11-24 12:13] LABS: KAPPA FREE 2.9 mg/L (3.3-19.4); KAPPA LAMBDA RATIO >1.93 (0.26-1.65); LAMBDA FREE <1.5 mg/L (5.7-26.3)
[2020-11-24 13:11] LABS: ALBUM 3.1 g/dL (2.9-4.4); ALPHA 1 0.2 g/dL (0.0-0.4); ALPHA 2 0.8 g/dL (0.4-1.0); BETA 0.9 g/dL (0.7-1.3); GAMMA 0.4 g/dL (0.4-1.8); PROTEIN TOTAL 5.4 g/dL (6.0-8.5); SPEP AG RATIO 1.3 (0.7-1.7)
== END ==
LOC: ONCLAB 08:25
PROVIDERS: ATTEND Internal Medicine Hematology & Oncology
DX: C90.00 Multiple myeloma not having achieved remission (principal)
CPT/HCPCS: 36415; 80053; 83520; 84165; 85025

== ENCOUNTER 2020-12-11 08:18 | Outpatient (CLI) | payer OTHER ==
[2020-12-11] VITALS (13 sets, daily range): BP systolic 98–178; BP diastolic 41–85
[~2020-12-11] VITALS: Ht 182.9 cm; Wt 186.4 kg
[~2020-12-11 08:18] MED LIST changes: -ACYC-12 PO; +ACYC400T PO; +ACYC800T PO; -ACYC800T88 PO; -AZIT250T6 PO; -AZIT500T4 PO; -DULA1.5P SQ; -PRED20TA PO
[2020-12-11 09:32] LABS: BASO % 1 % (0-3); EOS # 0.5 x10^3/uL (0.0-0.7); EOS % 17 % (0-3); HEMATOCRIT 33.2 % (39.0-53.0); HEMOGLOBIN 10.4 g/dL (13.0-17.5); LYMPH # 0.4 x10^3/uL (1.0-4.8); LYMPH % 14 % (24-48); MEAN CORPUSCULAR HEMOGLOBIN 26 pg (25-35); MEAN CORPUSCULAR HGB CONC 31 g/dL (31-37); MEAN CORPUSCULAR VOLUME 82 fL (79-100); MONO # 0.6 x10^3/uL (0.0-1.1); MONO % 20 % (0-9); NEUT # 1.5 x10^3/uL (1.8-7.7); NEUT % 49 % (31-73); PLATELET COUNT 190 x10^3/uL (140-400); RED BLOOD COUNT 4.07 x10^6/uL (4.30-5.70); RED CELL DISTRIBUTION WIDTH 20.6 % (11.5-14.5)
[2020-12-11 09:38] LABS: PROTHROMBIN TIME PATIENT 12.7 SEC (11.7-14.0)
[2020-12-11] MEDS ORDERED: LIDOCAINE WITH 8.4% SOD BICARB 3 ML DISP.SYRIN. ONE (09:39)
[2020-12-11] MEDS ORDERED: fentaNYL PF VIAL 100 MCG/2 ML VIAL ONE (10:01)
[2020-12-11] MEDS ORDERED: FLUMAZENIL 0.5 MG/5 ML VIAL. IV ONE (10:01)
[2020-12-11] MEDS ORDERED: MIDAZOLAM HCL/PF 2 MG/2 ML VIAL. ONE (10:01)
[2020-12-11] MEDS ORDERED: NALOXONE 0.4 MG/ML VIAL. ONE (10:02)
[2020-12-11] MEDS ORDERED: fentaNYL PF VIAL 100 MCG/2 ML VIAL IV ONE (10:30)
[2020-12-11] MEDS ORDERED: LIDOCAINE WITH 8.4% SOD BICARB 3 ML DISP.SYRIN. IJ ONE (10:30)
[2020-12-11] MEDS ORDERED: MIDAZOLAM HCL/PF 2 MG/2 ML VIAL. IV ONE (10:30)
--- NOTE | 2020-12-11 10:37 | PDOC ---
MODERATE SEDATION ASSESSMENT RISKS/ALTERNATIVES Risks/Alternatives Risks and alternatives of this type of sedation and procedure discussed with: RISK/ALTERNATIVES: Patient H & P ON CHART H & P H & P on chart and reviewed for co-morbid conditions and appropriate labs. H&P ON CHART: Yes STATUS PREG STATUS ASSESSED: Yes MEDS/ALLERGIES REVIEWED Meds/Allergies Reviewed Medications and Allergies including time and route of recently administered narcotics and sedatives. MEDS/ALLERGIES REVIEWED: Yes ASA RATING ASA RATING: II AIRWAY ASSESSMENT Airway Assessment Airway patency, oral function limitations, presence of caps, crowns, dentures, partials, and ability to extend neck assessed. AIRWAY ASSESSMENT: Yes MALLAMPATI SCORE MALLAMPATI SCORE: II PRE-SEDATION ASSESSMENT PRE-SEDATION ASSESSMENT: Yes CARMINE TUCKER MD Dec 11, 2020 10:37
--- NOTE | 2020-12-11 10:38 | PDOC ---
BRIEF OPERATIVE NOTE Pre-Op Diagnosis multiple myeloma Post-Op Diagnosis same Procedure Performed CT bone marrow biopsy Surgeon Alejandra EBL minimal Anesthesia Type: Conscious Sedation Specimens Obtained 2 x 3cc aspirates and 1 x 10g core Findings CT bone marrow biopsy Complications none CARMINE TUCKER MD Dec 11, 2020 10:38
--- NOTE | 2020-12-11 10:39 | PDOC1 ---
History and Physical Date of Procedure Date of Admission History of Present Illness Reason for Visit Adult male with multiple myleoma Past Medical History Past Medical History see nursing pre-op assessment Current Medications Current Medications Current Medications Lidocaine HCl (Buffered Lidocaine 1%) 3 ml STK-MED ONCE .ROUTE ; Start 12/11/20 at 09:39; Stop 12/11/20 at 09:39; Status DC Midazolam HCl (Versed) 2 mg STK-MED ONCE .ROUTE ; Start 12/11/20 at 10:01; Stop 12/11/20 at 10:01; Status DC Fentanyl Citrate (Fentanyl 2ml Vial) 100 mcg STK-MED ONCE .ROUTE ; Start 12/11/20 at 10:01; Stop 12/11/20 at 10:02; Status DC Flumazenil (Romazicon) 0.5 mg STK-MED ONCE IV ; Start 12/11/20 at 10:01; Stop 12/11/20 at 10:02; Status DC Naloxone HCl (Narcan) 0.4 mg STK-MED ONCE .ROUTE ; Start 12/11/20 at 10:02; Stop 12/11/20 at 10:02; Status DC Lidocaine HCl (Buffered Lidocaine 1%) 3 ml 1X ONCE IJ Last administered on 12/11/20at 10:27; Start 12/11/20 at 10:30; Stop 12/11/20 at 10:31; Status DC Midazolam HCl (Versed) 2 mg 1X ONCE IV Last administered on 12/11/20at 10:28; Start 12/11/20 at 10:30; Stop 12/11/20 at 10:31; Status DC Fentanyl Citrate (Fentanyl 2ml Vial) 100 mcg 1X ONCE IV Last administered on 12/11/20at 10:27; Start 12/11/20 at 10:30; Stop 12/11/20 at 10:31; Status DC Active Scripts Active Reported Ipratropium [place] 0.2 Mg/1 Ml Solution 1 Vial NEB PRN QID PRN [ipratropium-albu] Victoza 3-Ray (Liraglutide) 0.6 Mg/0.1 Ml Pen.injctr 0.6 Mg SQ DAILY Latanoprost 2.5 Ml Drops 1 Drop EACHEYE QHS Humalog (Insulin Lispro) 100 Unit/1 Ml Vial 0 SQ TIDAC Vitamin W38-Bmbvv Acid Tablet (Cyanocobalamin/Folic Acid) 1 Each Tablet 500 Mcg PO DAILY 30 Days Guaifenesin 400 Mg Tablet 1 Tab PO DAILY 5 Days Aspirin 325 Mg Tablet 1 Tab PO DAILY Klor-Con M10 (Potassium Chloride) 10 Meq Tab.er.prt 50 Meq PO QID Lantus Solostar (Insulin Glargine,Hum.rec.anlog) 100 Unit/1 Ml Insuln.pen 0 SQ QHS Decadron (Dexamethasone) 4 Mg Tablet 40 Mg PO 3 TUESDAY/ Lasix (Furosemide) 40 Mg Tablet 1 Tab PO DAILY 30 Days Magnesium Oxide 400 Mg Tablet 1 Tab PO DAILY Pomalyst (Pomalidomide) 4 Mg Capsule 1 Cap PO DAILY 21 Days Calcium Carbonate 500 Mg Tablet 600 Mg PO BID Fluticasone Propionate Nasal [place] (Fluticasone Propionate) 16 Gm [place].susp 1 [place] NS DAILY Azelastine Hcl 137 Mcg/0.137 Ml [place].pump 1 [place] NS DAILY Benicar Hct 40-12.5 Mg Tablet (Olmesartan/Hydrochlorothiazide) 1 Each Tablet 1 Tab PO DAILY Amlodipine Besylate 10 Mg Tablet 10 Mg PO DAILY Ventolin Hfa Inhaler (Albuterol Sulfate) 18 Gm Hfa.aer.ad 2 Puff INH PRN TID PRN Aylin-D 24 Hour Tablet (Fexofenadine/Pseudoephedrine) 1 Each Tab.er.24h 1 Tab PO DAILY Gabapentin (Gabapentin) 300 Mg Capsule 300 Mg PO BID Acyclovir 800 Mg Tablet 1 Tab PO BID Metformin Hcl 1,000 Mg Tablet 1,000 Mg PO BIDWMEALS Glipizide 5 Mg Tablet 1 Tab PO BID Montelukast Sodium Tablet (Montelukast Sodium) 10 Mg Tablet 10 Mg PO HS Alpha Lipoic Acid 100 Mg Capsule 100 Mg PO BID Allergies Allergies: Coded Allergies: venom-wasp (Verified Allergy, Severe, Anaphylaxis, 06/18/20) epi pen with pt Physical Exam Vital Signs Vital Signs Date Time Temp Pulse Resp B/P (MAP) Pulse Ox O2 Delivery O2 Flow Rate FiO2 12/11/20 10:33 67 16 99 2.0 12/11/20 10:29 Nasal Cannula 12/11/20 09:16 98.1 178/85 (116) 98.1 Other see nursing pre-op assessment Assessment Assessment Multiple Myeloma Plan Plan CT Bone Marrow biopsy CARMINE TUCKER MD Dec 11, 2020 10:39
[2020-12-11] MEDS ORDERED: FURO-69 PO (11:17)
[2020-12-11] MEDS ORDERED: DULA1.5P SQ (11:17)
[2020-12-11 11:47] LABS: % BANDS 2 % (0-9); % EOS 16 % (0-5); % LYMPHS 13 % (24-48); % MONOS 19 % (0-10); % SEGS 50 % (35-66); PLT ESTIMATE ADEQUATE (ADEQUATE)
[2020-12-11 11:48] LABS: ANISOCYTOSIS PRESENT; OVALOCYTES PRESENT
--- NOTE | 2020-12-11 12:10 | RAD ---
Procedure: CT-guided bone marrow aspiration and biopsy Clinical Indication: Adult male with multiple myeloma Sedation: Conscious sedation was administered with a total intraprocedural [id number] time of 12 minutes. The patient was monitored by a qualified independent observer throughout the time of sedation. Please refer to the medical record for exact doses of medications utilized to achieve moderate sedation. Antibiotics: None Fluoro Time: Not applicable Contrast: None Sterility: The procedure was performed in its entirety using appropriate elements of sterile technique. Consent: The procedure was explained in its entirety to the patient or the patients designated senior human resources representative by a member of the treatment team, including a discussion of the risks, benefits and commonly accepted alternatives to the procedure, as well as the expected consequences of no therapy whatsoever. Discussion of the risks included, but was not limited to, those that are most frequent and those that are rare but possibly severe or life-threatening, as well as the possibility of unforeseen complications. Technique and Findings: Following informed consent, the patient was prepped and draped in usual sterile fashion. Preliminary CT scan of the area of interest was performed. 1% Lidocaine was used to achieve local anesthesia. Under periodic CT surveillance, an 11-gauge needle was advanced through the cortex of the posterior superior iliac spine and 2 separate 2 mL marrow aspirates were obtained and preserved on site by the registered nurse first assistant. A single 11-gauge core biopsy specimen was then obtained and preserved in formalin. The needle was then removed and hemostasis was achieved with manual compression. Complications: No immediate Impression: 1. CT-guided bone marrow aspiration and biopsy as described PQRS Compliance Statement: One or more of the following individualized dose reduction techniques were utilized for this examination: 1. Automated exposure control 2. Adjustment of the mA and/or kV according to patient size 3. Use of iterative reconstruction technique
[2020-12-11] MEDS ORDERED: HEPARIN PF 500 UNIT/5 ML DISP.SYRIN. IVP ONE (12:42)
== END 2020-12-11 13:10 | disposition home or self-care (01) ==
LOC: INTRAD 08:18
PROVIDERS: ATTEND Internal Medicine Hematology & Oncology
DX: C90.00 Multiple myeloma not having achieved remission (principal); E11.42 Type 2 diabetes mellitus with diabetic polyneuropathy; E78.00 Pure hypercholesterolemia, unspecified; I10 Essential (primary) hypertension; G47.30 Sleep apnea, unspecified; E66.9 Obesity, unspecified; M19.90 Unspecified osteoarthritis, unspecified site; M10.9 Gout, unspecified; I25.10 Atherosclerotic heart disease of native coronary artery without angina pectoris; Z79.82 Long term (current) use of aspirin; Z79.84 Long term (current) use of oral hypoglycemic drugs; Z79.899 Other long term (current) drug therapy; Z98.890 Other specified postprocedural states; Z88.8 Allergy status to other drugs, medicaments and biological substances; Z20.822 Contact with and (suspected) exposure to COVID-19
CPT/HCPCS: 36415; 38222; 77012; 85007; 85025; 85610; 87426; 99152; C9803; J2250; J3010; J3490; U0003

== ENCOUNTER → 2020-12-19 | Outpatient (CLI) | payer OTHER ==
[2020-12-11 12:45] VITALS: BP 101/41
[~2020-12-19] MED LIST changes: +DULA1.5P SQ
[2020-12-19 08:54] LABS: BASO # 0.1 x10^3/uL (0.0-0.2); BASO % 1 % (0-3); EOS # 0.1 x10^3/uL (0.0-0.7); EOS % 2 % (0-3); HEMATOCRIT 32.5 % (39.0-53.0); HEMOGLOBIN 10.4 g/dL (13.0-17.5); LYMPH # 0.7 x10^3/uL (1.0-4.8); LYMPH % 11 % (24-48); MEAN CORPUSCULAR HEMOGLOBIN 26 pg (25-35); MEAN CORPUSCULAR HGB CONC 32 g/dL (31-37); MEAN CORPUSCULAR VOLUME 82 fL (79-100); MONO # 1.1 x10^3/uL (0.0-1.1); MONO % 18 % (0-9); NEUT # 4.4 x10^3/uL (1.8-7.7); NEUT % 69 % (31-73); PLATELET COUNT 328 x10^3/uL (140-400); RED BLOOD COUNT 3.96 x10^6/uL (4.30-5.70); RED CELL DISTRIBUTION WIDTH 20.3 % (11.5-14.5); WHITE BLOOD COUNT 6.3 x10^3/uL (4.0-11.0)
[2020-12-19 08:57] LABS: CALCIUM 8.3 mg/dL (8.5-10.1); CREATININE 1.1 mg/dL (0.7-1.3); GFR 67.4; POTASSIUM 3.7 mmol/L (3.5-5.1)
[2020-12-19 09:02] LABS: ALBUMIN 2.7 g/dL (3.4-5.0); ALBUMIN/GLOBULIN RATIO 0.9 (1.0-1.7); TOTAL BILIRUBIN 0.3 mg/dL (0.2-1.0); TOTAL PROTEIN 5.8 g/dL (6.4-8.2)
[2020-12-19 11:07] LABS: ANISOCYTOSIS MOD; OVALOCYTES FEW; PLT ESTIMATE ADEQUATE (ADEQUATE)
[2020-12-20 19:10] LABS: KAPPA FREE 5.1 mg/L (3.3-19.4); KAPPA LAMBDA RATIO 2.55 (0.26-1.65)
[2020-12-22 18:09] LABS: ALBUM 2.8 g/dL (2.9-4.4); ALPHA 1 0.3 g/dL (0.0-0.4); ALPHA 2 0.9 g/dL (0.4-1.0); BETA 0.9 g/dL (0.7-1.3); GAMMA 0.5 g/dL (0.4-1.8); PROTEIN TOTAL 5.3 g/dL (6.0-8.5); SPEP AG RATIO 1.1 (0.7-1.7)
== END ==
LOC: ONCLAB 08:03
PROVIDERS: ATTEND Internal Medicine Hematology & Oncology
DX: C90.00 Multiple myeloma not having achieved remission (principal)
CPT/HCPCS: 36415; 80053; 83520; 84165; 85025

== ENCOUNTER 2020-12-26 18:56 | Emergency (ER) | payer OTHER ==
[~2020-12-26] VITALS: Ht 182.9 cm; Wt 199.0 kg
--- NOTE | 2020-12-26 20:18 | RAD ---
XR CHEST 1V History: Reason: productive cough, pUI / Spl. Instructions: / History: Comparison: December 11, 2019 Findings: Right chest wall port with tip projecting over the lower SVC. Low lung volumes. Linear mid and bibasi lar opacities. Elevation the right hemidiaphragm. No pleural effusion. No pneumothorax. Impression: 1. Low lung volumes with linear mid and bibasilar opacities, likely atelectasis. Electronically signed by: Camilo Younger DO (12/26/2020 8:16 PM) [facility]
[2020-12-26 20:26] LABS: BASO # 0.1 x10^3/uL (0.0-0.2); BASO % 1 % (0-3); EOS # 0.3 x10^3/uL (0.0-0.7); EOS % 5 % (0-3); HEMATOCRIT 36.2 % (39.0-53.0); HEMOGLOBIN 11.5 g/dL (13.0-17.5); LYMPH # 0.8 x10^3/uL (1.0-4.8); LYMPH % 16 % (24-48); MEAN CORPUSCULAR HEMOGLOBIN 26 pg (25-35); MEAN CORPUSCULAR HGB CONC 32 g/dL (31-37); MEAN CORPUSCULAR VOLUME 80 fL (79-100); MONO # 0.3 x10^3/uL (0.0-1.1); MONO % 5 % (0-9); NEUT # 3.6 x10^3/uL (1.8-7.7); NEUT % 72 % (31-73); PLATELET COUNT 395 x10^3/uL (140-400); RED BLOOD COUNT 4.51 x10^6/uL (4.30-5.70); RED CELL DISTRIBUTION WIDTH 20.1 % (11.5-14.5); WHITE BLOOD COUNT 4.9 x10^3/uL (4.0-11.0)
[2020-12-26 20:33] LABS: CALCIUM 9.3 mg/dL (8.5-10.1); CREATININE 1.2 mg/dL (0.7-1.3); POTASSIUM 4.4 mmol/L (3.5-5.1)
[2020-12-26 20:40] LABS: ALBUMIN 2.9 g/dL (3.4-5.0); ALBUMIN/GLOBULIN RATIO 0.9 (1.0-1.7); MAGNESIUM 1.9 mg/dL (1.8-2.4); TOTAL BILIRUBIN 0.2 mg/dL (0.2-1.0); TOTAL PROTEIN 6.2 g/dL (6.4-8.2)
[2020-12-26 21:04] LABS: INFLUENZA A PATIENT NEGATIVE (NEGATIVE); INFLUENZA B PATIENT NEGATIVE (NEGATIVE)
[2020-12-26] MEDS ORDERED: AZIT500T4 PO (21:37)
[2020-12-26] MEDS ORDERED: AZIT250T6 PO (21:38)
--- NOTE | 2020-12-26 21:39 | ED.ADGEN ---
Past Medical History Past Medical History: Cancer, Diabetes-Type II, Hypertension, Other Additional Past Medical Histor: GB PROBLEMS, OBESE Past Surgical History: Other Additional Past Surgical Histo: RT HIP, R CHEST PORT Smoking Status: Never Smoker Alcohol Use: None Drug Use: None General Adult EDM: Chief Complaint: COUGH HPI: HPI: Patient is a 65 year old male who presents to the emergency department with complaints of a productive cough, fatigue, and headache began 5 days ago. Patient reports that he had his last chemo treatment for multiple myeloma last week. He states that his treatments usually make him feel fatigued but this fatigue is worse than usual. He denies any fever, nausea, vomiting, diarrhea, abdominal pain, chest pain, palpitations, sore throat, dysuria, hematuria, increased urinary frequency. Patient denies any shortness of breath or wheezing. He states that he has had generalized body aches but denies any rash. He denies any known exposure to COVID-19, patient states that he stays at home due to currently being on chemo. He currently denies any pain. Review of Systems: Review of Systems: Complete ROS is negative unless otherwise noted in HPI. Allergies: Allergies: Allergies Coded Allergies Type Severity Reaction Last Updated Verified venom-wasp Allergy Severe Anaphylaxis 06/18/20 Yes Physical Exam: PE: See Above Constitutional: Well developed, well nourished, no acute distress, non-toxic appearance, obese. [] HENT: Normocephalic, atraumatic, bilateral external ears normal, nose normal. [] Eyes: PERRLA, EOMI, conjunctiva normal, no discharge. [] Neck: Normal range of motion, no stridor. [] Cardiovascular:Heart rate regular rhythm Lungs & Thorax: Lungs clear in upper lobes, diminished in bilateral lower lobes, no wheezing, speaking full sentences, respirations even and unlabored, no retractions, no respiratory distress Abdomen: soft, no tenderness Skin: Warm, dry, no erythema, no rash. [] Extremities: No cyanosis, ROM intact Neurologic: Alert and oriented X 3, no focal deficits noted. [] Psychologic: Affect normal, judgement normal, mood normal. [] Current Patient Data: Labs: Laboratory Tests Test 12/26/20 20:06 12/26/20 20:13 White Blood Count 4.9 x10^3/uL (4.0-11.0) Red Blood Count 4.51 x10^6/uL (4.30-5.70) Hemoglobin 11.5 g/dL (13.0-17.5) L Hematocrit 36.2 % (39.0-53.0) L Mean Corpuscular Volume 80 fL (79-100) Mean Corpuscular Hemoglobin 26 pg (25-35) Mean Corpuscular Hemoglobin Concent 32 g/dL (31-37) Red Cell Distribution Width 20.1 % (11.5-14.5) H Platelet Count 395 x10^3/uL (140-400) Neutrophils (%) (Auto) 72 % (31-73) Lymphocytes (%) (Auto) 16 % (24-48) L Monocytes (%) (Auto) 5 % (0-9) Eosinophils (%) (Auto) 5 % (0-3) H Basophils (%) (Auto) 1 % (0-3) Neutrophils # (Auto) 3.6 x10^3/uL (1.8-7.7) Lymphocytes # (Auto) 0.8 x10^3/uL (1.0-4.8) L Monocytes # (Auto) 0.3 x10^3/uL (0.0-1.1) Eosinophils # (Auto) 0.3 x10^3/uL (0.0-0.7) Basophils # (Auto) 0.1 x10^3/uL (0.0-0.2) Sodium Level 138 mmol/L (136-145) Potassium Level 4.4 mmol/L (3.5-5.1) Chloride Level 98 mmol/L (98-107) Carbon Dioxide Level 29 mmol/L (21-32) Anion Gap 11 (6-14) Blood Urea Nitrogen 13 mg/dL (8-26) Creatinine 1.2 mg/dL (0.7-1.3) Estimated GFR (Cockcroft-Gault) 61.0 BUN/Creatinine Ratio 11 (6-20) Glucose Level 113 mg/dL (70-99) H Calcium Level 9.3 mg/dL (8.5-10.1) Magnesium Level 1.9 mg/dL (1.8-2.4) Total Bilirubin 0.2 mg/dL (0.2-1.0) Aspartate Amino Transferase (AST) 20 U/L (15-37) Alanine Aminotransferase (ALT) 59 U/L (16-63) Alkaline Phosphatase 71 U/L (46-116) Total Protein 6.2 g/dL (6.4-8.2) L Albumin 2.9 g/dL (3.4-5.0) L Albumin/Globulin Ratio 0.9 (1.0-1.7) L Influenza Type A Antigen Negative (NEGATIVE) Influenza Type B Antigen Negative (NEGATIVE) Laboratory Tests 12/26/20 20:06 Laboratory Tests 12/26/20 20:06 Vital Signs: Vital Signs Date Time Temp Pulse Resp B/P (MAP) Pulse Ox O2 Delivery O2 Flow Rate FiO2 12/26/20 19:17 97.8 24 155/77 (103) 96 97.8 EKG: EKG: [] Heart Score: C/O Chest Pain: No Risk Factors: Risk Factors: DM, Current or recent (<one month) smoker, HTN, HLP, family history of CAD, obesity. Risk Scores: Score 0 - 3: 2.5% MACE over next 6 weeks - Discharge Home Score 4 - 6: 20.3% MACE over next 6 weeks - Admit for Clinical Observation Score 7 - 10: 72.7% MACE over next 6 weeks - Early Invasive Strategies Radiology/Procedures: Radiology/Procedures: PROCEDURE: CHEST AP ONLY XR CHEST 1V History: Reason: productive cough, pUI / Spl. Instructions: / History: Comparison: December 11, 2019 Findings: Right chest wall port with tip projecting over the lower SVC. Low lung volumes. Linear mid and bibasilar opacities. Elevation the right hemidiaphragm. No pleural effusion. No pneumothorax. Impression: 1. Low lung volumes with linear mid and bibasilar opacities, likely atelectasis. [] Course & Med Decision Making: Course & Med Decision Making Pertinent Labs and Imaging studies reviewed. (See chart for details) 65-year-old male presents emergency department with complaints of productive c ough, fatigue, and headache. Chest x-ray revealed no acute findings; rapid influenza is negative, COVID-19 swab is pending. CBC revealed mild anemia with a hemoglobin 11.5, hematocrit of 36.2 otherwise unremarkable; CMP revealed glucose of 113 was otherwise unremarkable. Patient's vital signs were stable throughout his emergency department stay. Prescription was written for Zithromax. Patient was encouraged to follow-up with his primary care doctor next week, he was provided with quarantine instructions and advised that his COVID-19 test would not be back for 1 to 2 days. He was encouraged to return to the ER if his symptoms worsened or he developed a fever. Patient verbalized an understanding of home care, medications, follow-up, and return to ED instructions and was in agreement with the plan of care. [] Dragon Disclaimer: Dragon Disclaimer: This electronic medical record was generated, in whole or in part, using a voice recognition dictation system. Departure Departure Impression: Primary Impression: Productive cough Additional Impressions: Person under investigation for COVID-19 Fatigue Disposition: 01 DC HOME SELF CARE/HOMELESS Condition: STABLE Referrals: DESTINEE ROBLES MD (PCP) Patient Instructions: Cough, Adult, [id number] Additional Instructions: You have been tested for or diagnosed with COVID-19. It is an infection caused by a new type of coronavirus. COVID-19 will cause cold-like or mild flu symptoms in most. It c an cause more severe symptoms like problems breathing in some. There is no treatment for COVID-19. The body will clear the infection over time. Self-care will help to ease discomfort. Steps to Take: Self-Care Rest as needed. Healthy habits may help you feel better. Steps include: Choose healthy foods including fruits and vegetables. Drink water throughout the day. Get plenty of sleep each night. If you smoke, try to quit. It may ease breathing. Avoid alcohol. Keep Others Healthy The virus can spread to others. Droplets are released every time you sneeze or cough. The droplets can get into the mouth, nose, or eyes of people near you and lead to infection. To lower the chances of spreading COVID-19 to others: Stay at home until your doctor has said it is safe to leave. If you tested positive this will mean staying isolated until both of the following are true: At least 7 days have passed since the start of illness. You are free of fever for at least 72 hours without the use of medicine. During this time: - Avoid public areas, events, or transportation. Do not return to work or school until your doctor has said it is safe to do so. - Call ahead if you need to go to a medical center. Let them know you may have COVID-19. It will help them guide you where to go. They may also ask you to wear a facemask when you come to the office. - If you call for emergency medical services, let them know you may have COVID- 19. While at home: - Try to avoid close contact with others. Stay about 6 feet away. - If possible, spend most of your time in a separate room from others. - Use a face mask if you will be in close contact with others such as sharing a room or vehicle. - Have someone wipe down common surfaces in the home. Use household metal technician every day on areas like doorknobs, counters, or sinks. - Cough or sneeze into a tissue. Throw the tissue away right after use. If a tissue is not available, cough or sneeze into your elbow. - Wash your hands often. Wash them after sneezing or coughing. Use soap and water and wash for at least 20 seconds. Alcohol based hand coke still cleaner can be used if soap and water is not available. - Do not prepare food for others. Avoid sharing personal items like forks, spoons, or toothbrushes. - Avoid close contact with pets while you are sick. There is no evidence of the virus passing to pets. This is a safety step until more is known about this virus. Isolation can be frustrating. Social interaction can help. Keep in touch with friends and family through phone and tech options. You can still interact with others in your home, just keep a safe distance of about 6 feet. Follow-up: Your doctors office will check in with you to see if there are any changes in your health. You may be asked to keep track of symptoms to share with them. They will also let you know when you are clear to be in public again. Problems to Look Out For: Contact your doctor if your recovery is not going as you expect. Get emergency care if you have problems such as: - Trouble breathing - Nonstop chest pain or pressure - Changes in awareness, confusion, or problems waking - Lips or face have bluish color - Worsening of symptoms If you think you have an emergency, call for emergency medical services right away. [facility] Azithromycin (AZITHROMYCIN TABLET) 250 Mg Tablet 1 PKG PO UD for 5 Days, #6 TAB 0 Refills 2 the first day followed by 1 for days 2-5 Prov: HANNAH BARRAZA APRN 12/26/20 Problem Qualifiers Additional Impressions: Fatigue Fatigue type: unspecified Qualified Codes: R53.83 - Other fatigue HANNAH BARRAZA APRN Dec 26, 2020 21:39
[2020-12-26 22:05] VITALS: BP 133/93
== END 2020-12-26 22:05 | disposition home or self-care (01) ==
LOC: ER 18:56
DX: R53.83 Other fatigue (principal); Z20.822 Contact with and (suspected) exposure to COVID-19; R05 Cough; R51.9 Headache, unspecified; E11.9 Type 2 diabetes mellitus without complications; I10 Essential (primary) hypertension; Z91.038 Other insect allergy status
CPT/HCPCS: 36415; 71045; 80053; 83735; 85025; 87804; 99285; U0003; C9803

== ENCOUNTER → 2021-01-23 | Outpatient (CLI) | payer OTHER ==
[2020-12-26 22:05] VITALS: BP 133/93
[~2021-01-23] MED LIST changes: +ACYC-12 PO; -ACYC400T PO; -ACYC800T PO; +ACYC800T88 PO; +AZIT250T6 PO; +AZIT500T4 PO; +PRED20TA PO
[2021-01-23 08:39] LABS: BASO % 0 % (0-3); EOS # 0.2 x10^3/uL (0.0-0.7); EOS % 2 % (0-3); HEMATOCRIT 31.7 % (39.0-53.0); HEMOGLOBIN 10.1 g/dL (13.0-17.5); LYMPH # 0.9 x10^3/uL (1.0-4.8); LYMPH % 12 % (24-48); MEAN CORPUSCULAR HEMOGLOBIN 26 pg (25-35); MEAN CORPUSCULAR HGB CONC 32 g/dL (31-37); MEAN CORPUSCULAR VOLUME 81 fL (79-100); MONO # 0.5 x10^3/uL (0.0-1.1); MONO % 7 % (0-9); NEUT # 5.5 x10^3/uL (1.8-7.7); NEUT % 78 % (31-73); PLATELET COUNT 389 x10^3/uL (140-400); WHITE BLOOD COUNT 7.1 x10^3/uL (4.0-11.0)
[2021-01-23 08:52] LABS: CALCIUM 8.1 mg/dL (8.5-10.1); CREATININE 1.1 mg/dL (0.7-1.3); GFR 67.4; POTASSIUM 3.3 mmol/L (3.5-5.1)
[2021-01-23 08:57] LABS: ALBUMIN 2.7 g/dL (3.4-5.0); ALBUMIN/GLOBULIN RATIO 0.8 (1.0-1.7); TOTAL BILIRUBIN 0.2 mg/dL (0.2-1.0)
[2021-01-25 03:07] LABS: KAPPA FREE 1.9 mg/L (3.3-19.4); KAPPA LAMBDA RATIO >1.27 (0.26-1.65); LAMBDA FREE <1.5 mg/L (5.7-26.3)
[2021-01-26 20:16] LABS: ALBUM 2.9 g/dL (2.9-4.4); ALPHA 1 0.2 g/dL (0.0-0.4); BETA 0.8 g/dL (0.7-1.3); GAMMA 0.4 g/dL (0.4-1.8); PROTEIN TOTAL 5.4 g/dL (6.0-8.5); SPEP AG RATIO 1.2 (0.7-1.7)
== END ==
LOC: ONCLAB 08:13
PROVIDERS: ATTEND Internal Medicine Hematology & Oncology
DX: C90.00 Multiple myeloma not having achieved remission (principal)
CPT/HCPCS: 36415; 80053; 83520; 84165; 85025

== ENCOUNTER → 2021-01-29 | Outpatient (CLI) | payer OTHER | LOC: LAB 09:02 | PROVIDERS: ATTEND Internal Medicine Gastroenterology | DX: Z01.812 Encounter for preprocedural laboratory examination (principal); Z12.11 Encounter for screening for malignant neoplasm of colon; Z20.822 Contact with and (suspected) exposure to COVID-19 | CPT/HCPCS: U0003; U0005 ==

== ENCOUNTER → 2021-01-30 | Day surgery (SDC) | payer OTHER ==
[~2021-01-30] MED LIST changes: +HEPARIN PF 500 UNIT/5 ML DISP.SYRIN. IVP ONE; +IV RINGERS,LACTATED 1000ML 1,000 ML IV SCH; +PROPOFOL 10 MG/ML (20ML) VIAL. IV ONE
[2021-01-30 12:09] VITALS: BP 131/75
== END | disposition home or self-care (01) ==
LOC: ENDOS 10:32
PROVIDERS: ATTEND Internal Medicine Gastroenterology
DX: Z12.11 Encounter for screening for malignant neoplasm of colon (principal); Z53.8 Procedure and treatment not carried out for other reasons; K57.30 Diverticulosis of large intestine without perforation or abscess without bleeding; I10 Essential (primary) hypertension; I25.10 Atherosclerotic heart disease of native coronary artery without angina pectoris; E78.00 Pure hypercholesterolemia, unspecified; M19.90 Unspecified osteoarthritis, unspecified site; E11.9 Type 2 diabetes mellitus without complications; G47.30 Sleep apnea, unspecified; E66.9 Obesity, unspecified; M10.9 Gout, unspecified; Z86.010 Personal history of colon polyps; Z79.82 Long term (current) use of aspirin; Z79.84 Long term (current) use of oral hypoglycemic drugs; Z79.899 Other long term (current) drug therapy; Z98.890 Other specified postprocedural states; Z88.8 Allergy status to other drugs, medicaments and biological substances
CPT/HCPCS: 45378; J1642; J2704

== ENCOUNTER → 2021-02-23 | Outpatient (CLI) | payer OTHER ==
[2021-01-30 12:09] VITALS: BP 131/75
[~2021-02-23] MED LIST changes: -HEPARIN PF 500 UNIT/5 ML DISP.SYRIN. IVP ONE; -IV RINGERS,LACTATED 1000ML 1,000 ML IV SCH; -PROPOFOL 10 MG/ML (20ML) VIAL. IV ONE
[2021-02-23 09:15] LABS: BASO % 1 % (0-3); EOS % 0 % (0-3); HEMATOCRIT 31.9 % (39.0-53.0); HEMOGLOBIN 10.1 g/dL (13.0-17.5); LYMPH # 0.6 x10^3/uL (1.0-4.8); LYMPH % 10 % (24-48); MEAN CORPUSCULAR HEMOGLOBIN 26 pg (25-35); MEAN CORPUSCULAR HGB CONC 32 g/dL (31-37); MEAN CORPUSCULAR VOLUME 81 fL (79-100); MONO # 0.8 x10^3/uL (0.0-1.1); MONO % 11 % (0-9); NEUT # 5.4 x10^3/uL (1.8-7.7); NEUT % 79 % (31-73); PLATELET COUNT 371 x10^3/uL (140-400); RED BLOOD COUNT 3.95 x10^6/uL (4.30-5.70); RED CELL DISTRIBUTION WIDTH 22.3 % (11.5-14.5); WHITE BLOOD COUNT 6.9 x10^3/uL (4.0-11.0)
[2021-02-23 09:23] LABS: CALCIUM 8.6 mg/dL (8.5-10.1); CREATININE 1.2 mg/dL (0.7-1.3); POTASSIUM 3.1 mmol/L (3.5-5.1)
[2021-02-23 09:27] LABS: MAGNESIUM 1.7 mg/dL (1.8-2.4); TOTAL BILIRUBIN 0.2 mg/dL (0.2-1.0); TOTAL PROTEIN 5.9 g/dL (6.4-8.2)
[2021-02-24 14:12] LABS: KAPPA FREE 1.6 mg/L (3.3-19.4); KAPPA LAMBDA RATIO >1.07 (0.26-1.65); LAMBDA FREE <1.5 mg/L (5.7-26.3)
[2021-02-25 14:13] LABS: ALPHA 1 0.3 g/dL (0.0-0.4); ALPHA 2 0.9 g/dL (0.4-1.0); GAMMA 0.4 g/dL (0.4-1.8); PROTEIN TOTAL 5.5 g/dL (6.0-8.5); SPEP AG RATIO 1.2 (0.7-1.7)
== END ==
LOC: ONCLAB 08:33
PROVIDERS: ATTEND Internal Medicine Hematology & Oncology
DX: C90.00 Multiple myeloma not having achieved remission (principal)
CPT/HCPCS: 36415; 80053; 83520; 83735; 84165; 85025

== ENCOUNTER → 2021-02-27 | Outpatient (CLI) | payer OTHER ==
[2021-01-30 12:09] VITALS: BP 131/75
[2021-02-27 14:14] LABS: CALCIUM 8.7 mg/dL (8.5-10.1); CREATININE 1.2 mg/dL (0.7-1.3); POTASSIUM 3.8 mmol/L (3.5-5.1)
== END ==
LOC: LAB 13:08
PROVIDERS: ATTEND Physician Assistant
DX: C90.00 Multiple myeloma not having achieved remission (principal); E87.6 Hypokalemia
CPT/HCPCS: 36415; 80048

== ENCOUNTER → 2021-03-23 | Outpatient (CLI) | payer OTHER ==
[2021-01-30 12:09] VITALS: BP 131/75
[2021-03-23 09:33] LABS: BASO # 0.1 x10^3/uL (0.0-0.2); BASO % 2 % (0-3); EOS # 0.2 x10^3/uL (0.0-0.7); EOS % 4 % (0-3); HEMATOCRIT 32.4 % (39.0-53.0); HEMOGLOBIN 10.2 g/dL (13.0-17.5); LYMPH # 0.8 x10^3/uL (1.0-4.8); LYMPH % 16 % (24-48); MEAN CORPUSCULAR HEMOGLOBIN 26 pg (25-35); MEAN CORPUSCULAR HGB CONC 31 g/dL (31-37); MEAN CORPUSCULAR VOLUME 82 fL (79-100); MONO # 0.6 x10^3/uL (0.0-1.1); MONO % 12 % (0-9); NEUT # 3.4 x10^3/uL (1.8-7.7); NEUT % 66 % (31-73); PLATELET COUNT 356 x10^3/uL (140-400); RED BLOOD COUNT 3.96 x10^6/uL (4.30-5.70); RED CELL DISTRIBUTION WIDTH 22.4 % (11.5-14.5); WHITE BLOOD COUNT 5.1 x10^3/uL (4.0-11.0)
[2021-03-23 11:05] LABS: ALBUMIN/GLOBULIN RATIO 1.1 (1.0-1.7); CALCIUM 8.4 mg/dL (8.5-10.1); CREATININE 1.1 mg/dL (0.7-1.3); GFR 67.4; POTASSIUM 3.4 mmol/L (3.5-5.1); TOTAL BILIRUBIN 0.2 mg/dL (0.2-1.0); TOTAL PROTEIN 5.8 g/dL (6.4-8.2)
[2021-03-23 11:08] LABS: ANISOCYTOSIS MOD; PLT ESTIMATE ADEQUATE (ADEQUATE); POLYCHROMASIA SLIGHT
[2021-03-24 17:10] LABS: KAPPA FREE 4.8 mg/L (3.3-19.4); LAMBDA FREE 1.6 mg/L (5.7-26.3)
[2021-03-24 18:10] LABS: ALBUM 2.9 g/dL (2.9-4.4); ALPHA 1 0.3 g/dL (0.0-0.4); ALPHA 2 0.9 g/dL (0.4-1.0); GAMMA 0.4 g/dL (0.4-1.8); PROTEIN TOTAL 5.5 g/dL (6.0-8.5); SPEP AG RATIO 1.1 (0.7-1.7)
== END ==
LOC: ONCLAB 10:03
PROVIDERS: ATTEND Internal Medicine Hematology & Oncology
DX: C90.00 Multiple myeloma not having achieved remission (principal)
CPT/HCPCS: 36415; 80053; 83520; 84165; 85025

== ENCOUNTER 2021-04-19 19:49 | Emergency (ER) | payer OTHER ==
[~2021-04-19] VITALS: Ht 182.9 cm; Wt 191.0 kg
--- NOTE | 2021-04-20 00:10 | RAD ---
Examination: Right Lower Extremity Venous Doppler Ultrasound History: Right lower extremity swelling Comparison: None Procedure: Griggs scale, color flow 2D and spectal waveform analysis images are obtained with and witho ut compression in the area of the common femoral vein, superficial femoral vein - femoral vein juncti on, main femoral vein (superficial femoral vein) and popliteal vein. Veins of the proximal calf are a lso imaged. Findings: There is normal duplex flow, color flow and compressibility of all visualized vein segments. No evide nce of deep venous thrombus is present. Limited examination due to patient body habitus. Impression: No evidence of DVT in the right lower extremity venous system. Electronically signed by: Surya Yarbrough MD (04/20/2021 12:08 AM) [id number]
[2021-04-20 01:26] LABS: BASO # 0.1 x10^3/uL (0.0-0.2); BASO % 2 % (0-3); EOS # 0.3 x10^3/uL (0.0-0.7); EOS % 6 % (0-3); HEMATOCRIT 30.5 % (39.0-53.0); HEMOGLOBIN 9.7 g/dL (13.0-17.5); LYMPH # 0.8 x10^3/uL (1.0-4.8); LYMPH % 14 % (24-48); MEAN CORPUSCULAR HEMOGLOBIN 25 pg (25-35); MEAN CORPUSCULAR HGB CONC 32 g/dL (31-37); MEAN CORPUSCULAR VOLUME 80 fL (79-100); MONO # 1.2 x10^3/uL (0.0-1.1); MONO % 21 % (0-9); NEUT # 3.2 x10^3/uL (1.8-7.7); NEUT % 58 % (31-73); PLATELET COUNT 355 x10^3/uL (140-400); RED BLOOD COUNT 3.84 x10^6/uL (4.30-5.70); RED CELL DISTRIBUTION WIDTH 21.2 % (11.5-14.5); WHITE BLOOD COUNT 5.5 x10^3/uL (4.0-11.0)
[2021-04-20] MEDS ORDERED: CLINDAMYCIN 600MG PREMIX 50 ML IV ONE (01:30)
[2021-04-20 01:52] LABS: % BASOS 2 % (0-3); % EOS 5 % (0-5); % LYMPHS 16 % (24-48); % MONOS 11 % (0-10); % SEGS 66 % (35-66); PLT ESTIMATE ADEQUATE (ADEQUATE)
[2021-04-20] MEDS ORDERED: CLIN300C9 PO (01:57)
--- NOTE | 2021-04-20 01:57 | ED.ADGEN ---
Past Medical History Past Medical History: Cancer, Diabetes-Type II, Hypertension, Other Additional Past Medical Histor: GB PROBLEMS, OBESE Past Surgical History: Other Additional Past Surgical Histo: RT HIP, R CHEST PORT Smoking Status: Never Smoker Alcohol Use: None Drug Use: None General Adult EDM: Chief Complaint: LOWER EXTREMITY SWELLING HPI: HPI: Patient is a 65-year-old male with past medical history of multiple myeloma currently on chemotherapy who presents to the emergency room complaining of redness and warmth to his right leg. Patient states he hit his leg in the garage while working out a couple of days ago. He states he then noticed some surrounding redness that is progressively gotten worse. He has been told by his doctor that the medications he is on can lead to blood clots and that if this occurs he should come to the emergency room. He denies any kind of fever. He has an aching pain around the area but is able to walk on it. Review of Systems: Review of Systems: Complete ROS is negative unless otherwise documented in HPI Current Medications: Current Medications Medications (Trade) Dose Ordered Sig/Tiffany Start Time Stop Time Status Last Admin Dose Admin Clindamycin Phosphate 50 ml @ 100 mls/hr 1X ONCE 04/20/21 01:30 04/20/21 01:59 DC 04/20/21 01:23 100 MLS/HR Allergies: Allergies: Allergies Coded Allergies Type Severity Reaction Last Updated Verified venom-wasp Allergy Severe Anaphylaxis 01/30/21 Yes Physical Exam: PE: General: Awake, alert, NAD. Well Nourished, well hydrated. Cooperative HEENT: Atraumatic, EOMI, PERRL, airway patent, moist oral mucosa Neck: Supple, trachea midline Respiratory: CTA bilaterally, normal effort, no wheezing/crackles CV: RRR, no murmur, cap refill <2 GI: Soft, nondistended, nontender, no masses MSK: No obvious deformities Skin: Warm, dry. Right lower leg: Anterior white wound with surrounding erythema, warmth, swelling Neuro: A&O x3, speech NL, sensory and motor grossly intact, no focal deficits Psych: Normal affect, normal mood, not suicidal or homicidal Current Patient Data: Labs: Laboratory Tests Test 04/20/21 01:15 White Blood Count 5.5 x10^3/uL (4.0-11.0) Red Blood Count 3.84 x10^6/uL (4.30-5.70) L Hemoglobin 9.7 g/dL (13.0-17.5) L Hematocrit 30.5 % (39.0-53.0) L Mean Corpuscular Volume 80 fL (79-100) Mean Corpuscular Hemoglobin 25 pg (25-35) Mean Corpuscular Hemoglobin Concent 32 g/dL (31-37) Red Cell Distribution Width 21.2 % (11.5-14.5) H Platelet Count 355 x10^3/uL (140-400) Neutrophils (%) (Auto) 58 % (31-73) Lymphocytes (%) (Auto) 14 % (24-48) L Monocytes (%) (Auto) 21 % (0-9) H Eosinophils (%) (Auto) 6 % (0-3) H Basophils (%) (Auto) 2 % (0-3) Neutrophils # (Auto) 3.2 x10^3/uL (1.8-7.7) Lymphocytes # (Auto) 0.8 x10^3/uL (1.0-4.8) L Monocytes # (Auto) 1.2 x10^3/uL (0.0-1.1) H Eosinophils # (Auto) 0.3 x10^3/uL (0.0-0.7) Basophils # (Auto) 0.1 x10^3/uL (0.0-0.2) Segmented Neutrophils % 66 % (35-66) Lymphocytes % 16 % (24-48) L Monocytes % 11 % (0-10) H Eosinophils % 5 % (0-5) Basophils % 2 % (0-3) Platelet Estimate Adequate (ADEQUATE) Laboratory Tests 04/20/21 01:15 Vital Signs: Vital Signs Date Time Temp Pulse Resp B/P (MAP) Pulse Ox O2 Delivery O2 Flow Rate FiO2 04/20/21 02:07 64 18 139/63 (88) 94 Room Air 04/19/21 23:20 98.5 98.5 EKG: EKG: [] Heart Score: C/O Chest Pain: N/A Risk Factors: Risk Factors: DM, Current or recent (<one month) smoker, HTN, HLP, family history of CAD, obesity. Risk Scores: Score 0 - 3: 2.5% MACE over next 6 weeks - Discharge Home Score 4 - 6: 20.3% MACE over next 6 weeks - Admit for Clinical Observation Score 7 - 10: 72.7% MACE over next 6 weeks - Early Invasive Strategies Radiology/Procedures: Radiology/Procedures: [] Course & Med Decision Making: Course & Med Decision Making Pertinent Labs and Imaging studies reviewed. (See chart for details) Patient is a 65-year-old male with past medical history of multiple myeloma currently on chemotherapy who presents to the emergency room with right leg swelling and warmth. Ultrasound was done to rule out DVT was normal. This does appear to be cellulitis. Lab work was done to rule out any signs of neutropenia and his CBC does not suggest neutropenia at this time. I did give the patient the option of being admitted versus outpatient antibiotics. He was given a dose of IV antibiotics here and would like to go home with antibiotics. He will call his oncologist tomorrow morning. Patient's test results and vitals while in the ED were fully reviewed and discussed with the patient. Patient is stable and at this time does not need admission to the hospital. We have discussed strict return precautions and the importance of following up with their Primary Care Physician. Patient stated understanding and was given an opportunity to ask any questions. Patient is in agreement with plan. Bev Disclaimer: Draggerson Disclaimer: This electronic medical record was generated, in whole or in part, using a voice recognition dictation system. Departure Departure Impression: Primary Impression: Cellulitis, leg Additional Impression: Multiple myeloma Disposition: HOME / SELF CARE / HOMELESS Condition: STABLE Referrals: DESTINEE ROBLES MD (PCP) Patient Instructions: Cellulitis Scripts Clindamycin Hcl (CLINDAMYCIN HCL) 300 Mg Capsule 1 CAP PO TID, #21 CAP Prov: WANDA MICHEL MD 04/20/21 Problem Qualifiers WANDA MICHEL MD Apr 20, 2021 01:57
[2021-04-20 02:07] VITALS: BP 139/63
== END 2021-04-20 02:14 | disposition home or self-care (01) ==
LOC: ER 19:49
DX: L03.115 Cellulitis of right lower limb (principal); C90.00 Multiple myeloma not having achieved remission; E11.9 Type 2 diabetes mellitus without complications; I10 Essential (primary) hypertension; Z91.038 Other insect allergy status
CPT/HCPCS: 36415; 85007; 85025; 93971; 96365; 99285; J3490

== ENCOUNTER → 2021-04-21 | Outpatient (CLI) | payer OTHER ==
[2021-04-20 02:07] VITALS: BP 139/63
[~2021-04-21] MED LIST changes: +CLIN-94 PO; +CYCL10TA19 PO; -CYCL10TA2 PO; +MAGN400T48 PO; -MAGN400T5 PO; +POTA-116 PO; -POTA10TA12 PO
[2021-04-21 10:37] LABS: BASO # 0.1 x10^3/uL (0.0-0.2); BASO % 2 % (0-3); EOS # 0.3 x10^3/uL (0.0-0.7); EOS % 5 % (0-3); HEMATOCRIT 31.4 % (39.0-53.0); HEMOGLOBIN 9.8 g/dL (13.0-17.5); LYMPH # 0.7 x10^3/uL (1.0-4.8); LYMPH % 14 % (24-48); MEAN CORPUSCULAR HEMOGLOBIN 25 pg (25-35); MEAN CORPUSCULAR HGB CONC 31 g/dL (31-37); MEAN CORPUSCULAR VOLUME 81 fL (79-100); MONO % 19 % (0-9); NEUT # 3.2 x10^3/uL (1.8-7.7); NEUT % 60 % (31-73); PLATELET COUNT 381 x10^3/uL (140-400); RED BLOOD COUNT 3.85 x10^6/uL (4.30-5.70); RED CELL DISTRIBUTION WIDTH 21.7 % (11.5-14.5); WHITE BLOOD COUNT 5.4 x10^3/uL (4.0-11.0)
[2021-04-21 10:46] LABS: CALCIUM 8.1 mg/dL (8.5-10.1); GFR 75.2; POTASSIUM 3.4 mmol/L (3.5-5.1)
[2021-04-21 10:55] LABS: ALBUMIN 2.8 g/dL (3.4-5.0); ALBUMIN/GLOBULIN RATIO 0.9 (1.0-1.7); TOTAL BILIRUBIN 0.2 mg/dL (0.2-1.0); TOTAL PROTEIN 5.8 g/dL (6.4-8.2)
[2021-04-22 15:17] LABS: ALBUM 2.9 g/dL (2.9-4.4); ALPHA 1 0.3 g/dL (0.0-0.4); ALPHA 2 0.9 g/dL (0.4-1.0); BETA 0.9 g/dL (0.7-1.3); GAMMA 0.4 g/dL (0.4-1.8); KAPPA FREE 3.8 mg/L (3.3-19.4); KAPPA LAMBDA RATIO 2.53 (0.26-1.65); LAMBDA FREE 1.5 mg/L (5.7-26.3); PROTEIN TOTAL 5.4 g/dL (6.0-8.5); SPEP AG RATIO 1.2 (0.7-1.7)
== END ==
LOC: ONCLAB 09:37
PROVIDERS: ATTEND Internal Medicine Hematology & Oncology
DX: C90.00 Multiple myeloma not having achieved remission (principal)
CPT/HCPCS: 36415; 80053; 83520; 84165; 85025

== ENCOUNTER → 2021-05-18 | Outpatient (CLI) | payer OTHER ==
[2021-04-20 02:07] VITALS: BP 139/63
[~2021-05-18] MED LIST changes: -CLIN-94 PO; +CLIN300C9 PO; -CYCL10TA19 PO; +CYCL10TA2 PO; -MAGN400T48 PO; +MAGN400T5 PO; -POTA-116 PO; +POTA10TA12 PO
[2021-05-18 10:27] LABS: BASO % 1 % (0-3); EOS # 0.2 x10^3/uL (0.0-0.7); EOS % 8 % (0-3); HEMATOCRIT 32.4 % (39.0-53.0); HEMOGLOBIN 10.4 g/dL (13.0-17.5); LYMPH # 0.4 x10^3/uL (1.0-4.8); LYMPH % 15 % (24-48); MEAN CORPUSCULAR HEMOGLOBIN 26 pg (25-35); MEAN CORPUSCULAR HGB CONC 32 g/dL (31-37); MEAN CORPUSCULAR VOLUME 80 fL (79-100); MONO # 0.7 x10^3/uL (0.0-1.1); MONO % 25 % (0-9); NEUT # 1.4 x10^3/uL (1.8-7.7); NEUT % 51 % (31-73); PLATELET COUNT 204 x10^3/uL (140-400); RED BLOOD COUNT 4.06 x10^6/uL (4.30-5.70); RED CELL DISTRIBUTION WIDTH 21.2 % (11.5-14.5); WHITE BLOOD COUNT 2.8 x10^3/uL (4.0-11.0)
[2021-05-18 10:51] LABS: CALCIUM 8.6 mg/dL (8.5-10.1); CREATININE 1.1 mg/dL (0.7-1.3); GFR 67.4; POTASSIUM 3.7 mmol/L (3.5-5.1)
[2021-05-18 11:00] LABS: ALBUMIN 2.8 g/dL (3.4-5.0); ALBUMIN/GLOBULIN RATIO 0.9 (1.0-1.7); TOTAL BILIRUBIN 0.2 mg/dL (0.2-1.0); TOTAL PROTEIN 5.8 g/dL (6.4-8.2)
[2021-05-18 11:35] LABS: % EOS 9 % (0-5); % LYMPHS 17 % (24-48); % MONOS 19 % (0-10); % SEGS 55 % (35-66)
[2021-05-18 11:36] LABS: ANISOCYTOSIS SLIGHT; PLT ESTIMATE ADEQUATE (ADEQUATE); TEAR DROP CELLS FEW
[2021-05-18 11:37] LABS: OVALOCYTES FEW; POLYCHROMASIA SLIGHT; TARGET CELLS OCC
[2021-05-19 13:17] LABS: KAPPA FREE 4.2 mg/L (3.3-19.4); KAPPA LAMBDA RATIO 2.33 (0.26-1.65); LAMBDA FREE 1.8 mg/L (5.7-26.3)
[2021-05-20 20:25] LABS: ALBUM 2.8 g/dL (2.9-4.4); ALPHA 1 0.3 g/dL (0.0-0.4); ALPHA 2 0.9 g/dL (0.4-1.0); BETA 0.9 g/dL (0.7-1.3); GAMMA 0.4 g/dL (0.4-1.8); PROTEIN TOTAL 5.3 g/dL (6.0-8.5); SPEP AG RATIO 1.1 (0.7-1.7)
== END ==
LOC: ONCLAB 09:02
PROVIDERS: ATTEND Physician Assistant
DX: C90.00 Multiple myeloma not having achieved remission (principal)
CPT/HCPCS: 36415; 80053; 83520; 84165; 85007; 85025

== ENCOUNTER → 2021-05-22 | Outpatient (CLI) | payer OTHER | LOC: ONCLAB 09:05 | PROVIDERS: ATTEND Physician Assistant | DX: C90.00 Multiple myeloma not having achieved remission (principal) | CPT/HCPCS: 36415; 83883; 86335 ==

== ENCOUNTER → 2021-06-15 | Outpatient (CLI) | payer OTHER ==
[~2021-06-15] MED LIST changes: +POTA-116 PO; -POTA10TA12 PO
[2021-06-15 10:26] LABS: BASO % 1 % (0-3); EOS # 0.5 x10^3/uL (0.0-0.7); EOS % 13 % (0-3); HEMATOCRIT 31.9 % (39.0-53.0); HEMOGLOBIN 10.1 g/dL (13.0-17.5); LYMPH # 0.4 x10^3/uL (1.0-4.8); LYMPH % 12 % (24-48); MEAN CORPUSCULAR HEMOGLOBIN 25 pg (25-35); MEAN CORPUSCULAR HGB CONC 32 g/dL (31-37); MEAN CORPUSCULAR VOLUME 80 fL (79-100); MONO # 0.8 x10^3/uL (0.0-1.1); MONO % 20 % (0-9); NEUT # 2.1 x10^3/uL (1.8-7.7); NEUT % 55 % (31-73); PLATELET COUNT 260 x10^3/uL (140-400); RED BLOOD COUNT 3.97 x10^6/uL (4.30-5.70); RED CELL DISTRIBUTION WIDTH 21.8 % (11.5-14.5); WHITE BLOOD COUNT 3.8 x10^3/uL (4.0-11.0)
[2021-06-15 10:39] LABS: ALBUMIN 2.6 g/dL (3.4-5.0); ALBUMIN/GLOBULIN RATIO 0.9 (1.0-1.7); CALCIUM 8.9 mg/dL (8.5-10.1); CREATININE 1.1 mg/dL (0.7-1.3); GFR 67.4; TOTAL BILIRUBIN 0.2 mg/dL (0.2-1.0); TOTAL PROTEIN 5.6 g/dL (6.4-8.2)
[2021-06-15 14:09] LABS: % BANDS 12 % (0-9); % BASOS 1 % (0-3); % EOS 18 % (0-5); % LYMPHS 15 % (24-48); % MONOS 10 % (0-10); % SEGS 44 % (35-66); ANISOCYTOSIS MOD; PLT ESTIMATE ADEQUATE (ADEQUATE); POLYCHROMASIA SLIGHT
[2021-06-16 13:13] LABS: ALBUM 2.8 g/dL (2.9-4.4); ALPHA 1 0.3 g/dL (0.0-0.4); ALPHA 2 0.8 g/dL (0.4-1.0); BETA 0.9 g/dL (0.7-1.3); GAMMA 0.3 g/dL (0.4-1.8); KAPPA FREE 5.3 mg/L (3.3-19.4); LAMBDA FREE 2.3 mg/L (5.7-26.3); PROTEIN TOTAL 5.2 g/dL (6.0-8.5); SPEP AG RATIO 1.2 (0.7-1.7)
== END ==
LOC: ONCLAB 09:53
PROVIDERS: ATTEND Physician Assistant
DX: C90.00 Multiple myeloma not having achieved remission (principal)
CPT/HCPCS: 36415; 80053; 83520; 84165; 85007; 85025

== ENCOUNTER → 2021-07-13 | Outpatient (CLI) | payer OTHER ==
[2021-07-13 11:10] LABS: BASO % 0 % (0-3); EOS # 0.5 x10^3/uL (0.0-0.7); EOS % 10 % (0-3); HEMATOCRIT 31.4 % (39.0-53.0); HEMOGLOBIN 9.9 g/dL (13.0-17.5); LYMPH # 0.5 x10^3/uL (1.0-4.8); LYMPH % 11 % (24-48); MEAN CORPUSCULAR HEMOGLOBIN 26 pg (25-35); MEAN CORPUSCULAR HGB CONC 32 g/dL (31-37); MEAN CORPUSCULAR VOLUME 82 fL (79-100); MONO # 1.1 x10^3/uL (0.0-1.1); MONO % 25 % (0-9); NEUT # 2.4 x10^3/uL (1.8-7.7); NEUT % 53 % (31-73); PLATELET COUNT 281 x10^3/uL (140-400); RED BLOOD COUNT 3.83 x10^6/uL (4.30-5.70); RED CELL DISTRIBUTION WIDTH 22.3 % (11.5-14.5); WHITE BLOOD COUNT 4.5 x10^3/uL (4.0-11.0)
[2021-07-13 11:36] LABS: GFR 75.2; POTASSIUM 3.1 mmol/L (3.5-5.1)
[2021-07-13 11:39] LABS: ALBUMIN 2.7 g/dL (3.4-5.0); TOTAL BILIRUBIN 0.2 mg/dL (0.2-1.0); TOTAL PROTEIN 5.5 g/dL (6.4-8.2)
[2021-07-13 13:10] LABS: % BANDS 1 % (0-9); % EOS 9 % (0-5); % LYMPHS 22 % (24-48); % MONOS 17 % (0-10); % SEGS 51 % (35-66); ANISOCYTOSIS MOD; PLT ESTIMATE ADEQUATE (ADEQUATE)
[2021-07-14 13:12] LABS: ALBUM 2.8 g/dL (2.9-4.4); ALPHA 1 0.2 g/dL (0.0-0.4); ALPHA 2 0.7 g/dL (0.4-1.0); BETA 0.9 g/dL (0.7-1.3); GAMMA 0.3 g/dL (0.4-1.8); SPEP AG RATIO 1.3 (0.7-1.7)
[2021-07-14 16:10] LABS: KAPPA FREE 1.8 mg/L (3.3-19.4); KAPPA LAMBDA RATIO >1.20 (0.26-1.65); LAMBDA FREE <1.5 mg/L (5.7-26.3)
== END ==
LOC: ONCLAB 08:20
PROVIDERS: ATTEND Internal Medicine Hematology & Oncology
DX: C90.00 Multiple myeloma not having achieved remission (principal)
CPT/HCPCS: 36415; 80053; 83520; 84165; 85007; 85025; 87493

== ENCOUNTER → 2021-07-17 | Day surgery (SDC) | payer OTHER ==
[~2021-07-17] VITALS: Ht 193 cm; Wt 196.0 kg
[~2021-07-17] MED LIST changes: +HEPARIN PF 500 UNIT/5 ML DISP.SYRIN. IVP ONE; +IV RINGERS,LACTATED 1000ML 1,000 ML IV SCH; +LIDOCAINE 2% PF 5 ML VIAL. ONE; +PROPOFOL 10 MG/ML (20ML) VIAL. IV ONE
[2021-07-17 13:39] VITALS: BP 140/63
[2021-07-17 16:10] VITALS: BP 134/55
== END | disposition home or self-care (01) ==
LOC: ENDOS 13:00
PROVIDERS: ATTEND Internal Medicine Gastroenterology
DX: Z12.11 Encounter for screening for malignant neoplasm of colon (principal); K63.89 Other specified diseases of intestine; K64.8 Other hemorrhoids; K57.30 Diverticulosis of large intestine without perforation or abscess without bleeding; I25.10 Atherosclerotic heart disease of native coronary artery without angina pectoris; I10 Essential (primary) hypertension; E78.00 Pure hypercholesterolemia, unspecified; E66.9 Obesity, unspecified; M19.90 Unspecified osteoarthritis, unspecified site; E11.9 Type 2 diabetes mellitus without complications; M10.9 Gout, unspecified; G47.30 Sleep apnea, unspecified; Z79.82 Long term (current) use of aspirin; Z79.4 Long term (current) use of insulin; Z79.899 Other long term (current) drug therapy; Z98.890 Other specified postprocedural states; Z88.8 Allergy status to other drugs, medicaments and biological substances; Z82.49 Family history of ischemic heart disease and other diseases of the circulatory system; Z83.3 Family history of diabetes mellitus
CPT/HCPCS: 45378; J1642; J2704

== ENCOUNTER 2021-07-19 13:15 | Inpatient (IN) | payer OTHER ==
[~2021-07-19] VITALS: Ht 182.9 cm; Wt 210.7 kg
[~2021-07-19 13:15] MED LIST changes: +CLIN-94 PO; -CLIN300C9 PO; -HEPARIN PF 500 UNIT/5 ML DISP.SYRIN. IVP ONE; -IV RINGERS,LACTATED 1000ML 1,000 ML IV SCH; -LIDOCAINE 2% PF 5 ML VIAL. ONE; +MAGN400T48 PO; -MAGN400T5 PO; -PROPOFOL 10 MG/ML (20ML) VIAL. IV ONE
[2021-07-19] MEDS ORDERED: fentaNYL PF VIAL 100 MCG/2 ML VIAL IVP ONE (14:30)
[2021-07-19] MEDS ORDERED: VANCOMYCIN 2 GM in IV NORMAL SALINE 500ML BAG 500 ML IV ONE (14:30)
[2021-07-19] MEDS ORDERED: VANCOMYCIN PER PHARMACY MC ONE (14:30)
--- NOTE | 2021-07-19 14:51 | PHYS DOC ---
Past Medical History Past Medical History: Cancer, Diabetes-Type II, Hypertension, Other Additional Past Medical Histor: GB PROBLEMS, multiple myeloma Past Surgical History: Other Additional Past Surgical Histo: RT HIP, R CHEST PORT Smoking Status: Never Smoker Alcohol Use: None Drug Use: None General Adult EDM: Chief Complaint: LOWER EXT PAIN HPI: HPI: Patient is a 65 year old male who presents with states he started working out yesterday and went to bed with his shoes on. Patient states he awoke with left lower extremity redness cellulitis and warmth to that leg. He states he thinks that his soles of his shoes rubbed up against that leg during the night. Patient is currently receiving chemo through a right chest port for multiple myeloma. He also has a history of diabetes, neuropathy, hypertension, morbid obesity, right hip surgery. Patient is rating his pain a 10 out of 10. Patient has 2 small pencil eraser size wound that are draining purulent fluid. He then has medial and lateral wounds that family member states they have been using antibiotic ointment on. He denies fever, increased shortness of breath, chest pain, nausea, vomiting, body aches, cough, abdominal pain, back pain. Review of Systems: Review of Systems: Constitutional: Denies fever or chills. [] Eyes: Denies change in visual acuity. [] HENT: Denies nasal congestion or sore throat. [] Respiratory: Denies cough or shortness of breath. [] Cardiovascular: Denies chest pain or edema. [] GI: Denies abdominal pain, nausea, vomiting, bloody stools or diarrhea. [] : Denies dysuria. [] Musculoskeletal: Denies back pain or joint pain. + Left lower leg pain [] Integument: Denies rash. +Left lower leg redness. + Left lower leg wounds [] Neurologic: Denies headache, focal weakness or sensory changes. [] Endocrine: Denies polyuria or polydipsia. [] Lymphatic: Denies swollen glands. [] Psychiatric: Denies depression or anxiety. [] Heart Score: C/O Chest Pain: No Current Medications: Current Medications Medications (Trade) Dose Ordered Sig/Tiffany Start Time Stop Time Status Last Admin Dose Admin Fentanyl Citrate (Fentanyl 2ml Vial) 75 mcg 1X ONCE 07/19/21 14:30 07/19/21 14:33 DC Vancomycin HCl (Vanco Per Pharmacy) 1 each 1X ONCE 07/19/21 14:30 07/19/21 14:25 DC Vancomycin HCl 2 gm/Sodium Chloride 500 ml @ 250 mls/hr 1X ONCE 07/19/21 14:30 07/19/21 16:29 Allergies: Allergies: Allergies Coded Allergies Type Severity Reaction Last Updated Verified venom-wasp Allergy Severe Anaphylaxis 07/19/21 Yes Physical Exam: PE: Constitutional: Well developed, well nourished, no acute distress, non-toxic appearance. [] HENT: Normocephalic, atraumatic, bilateral external ears normal, oropharynx moist, no oral exudates, nose normal. [] Eyes: PERRLA, EOMI, conjunctiva normal, no discharge. [] Neck: Normal range of motion, no tenderness, supple, no stridor. [] Cardiovascular:Heart rate regular rhythm, no murmur [] Lungs & Thorax: Bilateral breath sounds clear to auscultation [] Abdomen: Bowel sounds normal, soft, no tenderness, no masses, no pulsatile masses. [] Skin: Warm, dry, left lower leg erythema, no rash. 2 pencil rounded eraser sized wounds draining with purulent fluid to left rob area. 1 wound Quarter sized reddened nondraining to lateral leg and medial lower leg. [] Back: No tenderness, no CVA tenderness. [] Extremities: Left lower leg tenderness, no cyanosis, no clubbing, ROM intact, bilateral lower 3+ edema. [] Neurologic: Alert and oriented X 3, normal motor function, normal sensory function, no focal deficits noted. [] Psychologic: Affect normal, judgement normal, mood normal. [] Current Patient Data: Vital Signs: Vital Signs Date Time Temp Pulse Resp B/P (MAP) Pulse Ox O2 Delivery O2 Flow Rate FiO2 07/19/21 13:42 99.1 85 28 146/68 (94) 96 Room Air 99.1 EKG: EKG: [] Radiology/Procedures: Radiology/Procedures: [] Course & Med Decision Making: Course & Med Decision Making Pertinent Labs and Imaging studies reviewed. (See chart for details) See HPI. Alert and oriented x4. Currently not able to ambulate on that left lower leg due to pain. Patient is not wanting to move the leg due to pain. Cellulitis to the left lower leg with wounds as described in HPI. Patient started on vancomycin per pharmacy. He states he sees Dr. Lai. Patient admitted to Dr. Dempsey. He is given potassium and magnesium in the ED. There is still a pending ultrasound for his left lower extremity. [] Dragon Disclaimer: Dragon Disclaimer: This electronic medical record was generated, in whole or in part, using a voice recognition dictation system. Departure Departure Impression: Primary Impression: Cellulitis of left lower extremity Additional Impressions: Hypokalemia Hypomagnesemia Disposition: ADMITTED INPATIENT Admitting Physician: CATRINA Condition: STABLE Referrals: DESTINEE ROBLES MD (PCP) EVAN WALTERS APRN Jul 19, 2021 14:51
[2021-07-19 15:08] LABS: BASO % 1 % (0-3); EOS % 0 % (0-3); HEMATOCRIT 32.2 % (39.0-53.0); HEMOGLOBIN 10.4 g/dL (13.0-17.5); LYMPH # 0.1 x10^3/uL (1.0-4.8); LYMPH % 2 % (24-48); MEAN CORPUSCULAR HEMOGLOBIN 26 pg (25-35); MEAN CORPUSCULAR HGB CONC 32 g/dL (31-37); MEAN CORPUSCULAR VOLUME 81 fL (79-100); MONO # 0.7 x10^3/uL (0.0-1.1); MONO % 14 % (0-9); NEUT # 4.2 x10^3/uL (1.8-7.7); NEUT % 84 % (31-73); PLATELET COUNT 278 x10^3/uL (140-400); RED BLOOD COUNT 3.97 x10^6/uL (4.30-5.70); RED CELL DISTRIBUTION WIDTH 21.9 % (11.5-14.5); WHITE BLOOD COUNT 5.1 x10^3/uL (4.0-11.0)
[2021-07-19 15:30] LABS: ALBUMIN 2.7 g/dL (3.4-5.0); CALCIUM 8.8 mg/dL (8.5-10.1); CREATININE 1.1 mg/dL (0.7-1.3); GFR 67.4; TOTAL BILIRUBIN 0.3 mg/dL (0.2-1.0); TOTAL PROTEIN 5.3 g/dL (6.4-8.2)
[2021-07-19 15:35] LABS: POTASSIUM 2.8 mmol/L (3.5-5.1)
[2021-07-19 15:47] LABS: % BANDS 21 % (0-9); % SEGS 64 % (35-66); ANISOCYTOSIS MOD; PLT ESTIMATE ADEQUATE (ADEQUATE)
[2021-07-19 15:48] LABS: % LYMPHS 1 % (24-48); % MONOS 14 % (0-10)
[2021-07-19 15:49] LABS: POIKILOCYTOSIS SLIGHT; POLYCHROMASIA SLIGHT
[2021-07-19 15:50] LABS: OVALOCYTES FEW
[2021-07-19 15:51] LABS: TOXIC GRANULATION SLIGHT
[2021-07-19] MEDS ORDERED: IV NORMAL SALINE 1000ML BAG 1,000 ML IV ONE ×3 (16:00→20:15)
[2021-07-19] MEDS ORDERED: IV NORMAL SALINE 1000ML BAG 1,000 ML IV SCH (16:15)
[2021-07-19] MEDS ORDERED: hydrALAZINE 20 MG/ML VIAL. IVP PRN (16:15)
--- NOTE | 2021-07-19 16:22 | PDOC1 ---
History and Physical Date of Admission Date of Admission DATE: 07/19/21 TIME: 16:08 Identification/Chief Complaint Chief Complaint Cellulitis Source Source: Caregiver, Patient History of Present Illness History of Present Illness Patient 65-year-old male past medical history multiple myeloma on chemotherapy, DM2, morbid obesity, who presents to the ED with complaints of worsening erythema to his left lower extremity. States he fell asleep with his shoes on and must of scratched his left lower leg with a Velcro. When he woke up he noted pain, redness, and swelling to his posterior left lower extremity. 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 He receives chemotherapy once monthly and takes prednisone 40 mg once weekly. Currently he reports pain 10/10. did note some clear drainage to his anterior rob, but none was able to be expressed in the ED. Labs on admission showed WBC 5.1, hemoglobin 10.4, hematocrit 32.2, potassium 2.8, CBG 159, lactic acid 3.6, CRP 37, albumin 2.7. He received potassium chloride/water, vancomycin, and fentanyl in the ED. Will admit patient for further medical management. Past Medical History Past Medical History Multiple myeloma on chemotherapy Cardiovascular: Hyperlipidemia GI: GERD Heme/Onc: Cancer Endocrine: Diabetes Past Surgical History Past Surgical History Right hip surgery Family History Family History: Diabetes, Hypertension Social History Smoke: No ALCOHOL: none Drugs: None Current Medications Current Medications Current Medications Vancomycin HCl (Vanco Per Pharmacy) 1 each 1X ONCE MC ; Start 07/19/21 at 14:30; Stop 07/19/21 at 14:25; Status DC Fentanyl Citrate (Fentanyl 2ml Vial) 75 mcg 1X ONCE IVP Last administered on 07/19/21at 14:55; Start 07/19/21 at 14:30; Stop 07/19/21 at 14:33; Status DC Vancomycin HCl 2 gm/Sodium Chloride 500 ml @ 250 mls/hr 1X ONCE IV Last administered on 07/19/21at 14:56; Start 07/19/21 at 14:30; Stop 07/19/21 at 16:29 Potassium Chloride/Water 100 ml @ 100 mls/hr Q1H IV ; Start 07/19/21 at 16:00; Stop 07/19/21 at 17:59 Sodium Chloride 1,000 ml @ 1,000 mls/hr 1X ONCE IV ; Start 07/19/21 at 16:00; Stop 07/19/21 at 16:59 Active Scripts Active Clindamycin Hcl 300 Mg Capsule 1 Cap PO TID Reported Prednisone 20 Mg Tablet 40 Mg PO WEEKLY Trulicity (Dulaglutide) 1.5 Mg/0.5 Ml Pen.injctr 1.5 Mg SQ WEEKLY Lasix (Furosemide) 20 Mg Tablet 1 Tab PO AFTRNOON 30 Days Ipratropium Bee 0.2 Mg/1 Ml Solution 1 Vial NEB PRN QID PRN [ipratropium-albu] Latanoprost 2.5 Ml Drops 1 Drop EACHEYE QHS Humalog (Insulin Lispro) 100 Unit/1 Ml Vial 0 SQ TIDAC Vitamin U39-Ezwko Acid Tablet (Cyanocobalamin/Folic Acid) 1 Each Tablet 500 Mcg PO DAILY 30 Days Aspirin 325 Mg Tablet 1 Tab PO DAILY Klor-Con M10 (Potassium Chloride) 10 Meq Tab.er.prt 40 Meq PO BID Lantus Solostar (Insulin Glargine,Hum.rec.anlog) 100 Unit/1 Ml Insuln.pen 0 SQ QHS Decadron (Dexamethasone) 4 Mg Tablet 40 Mg PO 3 TUESDAY/ Lasix (Furosemide) 40 Mg Tablet 1 Tab PO DAILY 30 Days Magnesium Oxide 400 Mg Tablet 1 Tab PO DAILY Pomalyst (Pomalidomide) 4 Mg Capsule 1 Cap PO DAILY 21 Days Calcium Carbonate 500 Mg Tablet 600 Mg PO BID Fluticasone Propionate Nasal [place] (Fluticasone Propionate) 16 Gm [place].susp 1 [place] NS DAILY Azelastine Hcl 137 Mcg/0.137 Ml [place].pump 1 [place] NS DAILY Benicar Hct 40-12.5 Mg Tablet (Olmesartan/Hydrochlorothiazide) 1 Each Tablet 1 Tab PO DAILY Amlodipine Besylate 10 Mg Tablet 10 Mg PO DAILY Ventolin Hfa Inhaler (Albuterol Sulfate) 18 Gm Hfa.aer.ad 2 Puff INH PRN TID PRN Aylin-D 24 Hour Tablet (Fexofenadine/Pseudoephedrine) 1 Each Tab.er.24h 1 Tab PO DAILY Gabapentin (Gabapentin) 300 Mg Capsule 300 Mg PO BID Acyclovir 800 Mg Tablet 1 Tab PO BID Metformin Hcl 1,000 Mg Tablet 1,000 Mg PO BIDWMEALS Glipizide 5 Mg Tablet 1 Tab PO BID Allergies Allergies: Coded Allergies: venom-wasp (Verified Allergy, Severe, Anaphylaxis, 07/19/21) epi pen with pt ROS Review of System GENERAL: No history of weight change, weakness or fevers. SKIN: No bruising, hair changes or rashes. EYES: No blurred, double or loss of vision. NOSE AND THROAT: No history of nosebleeds, hoarseness or sore throat. HEART: Denies chest pain, denies palpitations. LUNGS: Denies cough, hemoptysis, wheezing or shortness of breath. GASTROINTESTINAL: Denies nausea, vomiting, abdominal pain. GENITOURINARY: Denies dysuria, frequency, urgency, hematuria. NEUROLOGIC: Denies history of numbness, tingling, tremor or weakness. PSYCHIATRIC: Denies anxiety, denies depression. ENDOCRINE: No history of heat or cold intolerance, polyuria or polydipsia. EXTREMITIES: Left lower extremity erythema, swelling, and pain.. Pain on walking. Physical Exam Physical Exam General: Alert, Oriented X3, Cooperative, moderate distress. Super morbid obesity. HEENT: PERRLA, EOMI Lungs: Decreased breath sounds bilaterally, Normal air movement. Tachypneic. Heart: RRR, no murmurs Cardiovascular: S1, S2 Abdomen: Obese. Normal bowel sounds, Soft, No tenderness Extremities: No clubbing, No cyanosis Skin: Extensive circumferential cellulitis to the left lower extremity, with >16 cm erythema. Neuro: Normal speech, Normal tone, Sensation intact Psych/Mental Status: Mental status NL, Mood NL Vitals Vitals Vital Signs Date Time Temp Pulse Resp B/P (MAP) Pulse Ox O2 Delivery O2 Flow Rate FiO2 07/19/21 13:42 99.1 85 28 146/68 (94) 96 Room Air 99.1 Labs Labs Laboratory Tests Test 07/19/21 14:55 White Blood Count 5.1 x10^3/uL (4.0-11.0) Red Blood Count 3.97 x10^6/uL (4.30-5.70) Hemoglobin 10.4 g/dL (13.0-17.5) Hematocrit 32.2 % (39.0-53.0) Mean Corpuscular Volume 81 fL (79-100) Mean Corpuscular Hemoglobin 26 pg (25-35) Mean Corpuscular Hemoglobin Concent 32 g/dL (31-37) Red Cell Distribution Width 21.9 % (11.5-14.5) Platelet Count 278 x10^3/uL (140-400) Neutrophils (%) (Auto) 84 % (31-73) Lymphocytes (%) (Auto) 2 % (24-48) Monocytes (%) (Auto) 14 % (0-9) Eosinophils (%) (Auto) 0 % (0-3) Basophils (%) (Auto) 1 % (0-3) Neutrophils # (Auto) 4.2 x10^3/uL (1.8-7.7) Lymphocytes # (Auto) 0.1 x10^3/uL (1.0-4.8) Monocytes # (Auto) 0.7 x10^3/uL (0.0-1.1) Eosinophils # (Auto) 0.0 x10^3/uL (0.0-0.7) Basophils # (Auto) 0.0 x10^3/uL (0.0-0.2) Segmented Neutrophils % 64 % (35-66) Band Neutrophils % 21 % (0-9) Lymphocytes % 1 % (24-48) Monocytes % 14 % (0-10) Toxic Granulation Slight Dohle Bodies Present Platelet Estimate Adequate (ADEQUATE) Polychromasia Slight Poikilocytosis Slight Anisocytosis Mod Ovalocytes Few Sodium Level 138 mmol/L (136-145) Potassium Level 2.8 mmol/L (3.5-5.1) Chloride Level 101 mmol/L (98-107) Carbon Dioxide Level 29 mmol/L (21-32) Anion Gap 8 (6-14) Blood Urea Nitrogen 18 mg/dL (8-26) Creatinine 1.1 mg/dL (0.7-1.3) Estimated GFR (Cockcroft-Gault) 67.4 BUN/Creatinine Ratio 16 (6-20) Glucose Level 159 mg/dL (70-99) Lactic Acid Level 3.6 mmol/L (0.4-2.0) Calcium Level 8.8 mg/dL (8.5-10.1) Total Bilirubin 0.3 mg/dL (0.2-1.0) Aspartate Amino Transf (AST/SGOT) 27 U/L (15-37) Alanine Aminotransferase (ALT/SGPT) 73 U/L (16-63) Alkaline Phosphatase 61 U/L (46-116) C-Reactive Protein, Quantitative 37.0 mg/L (0-3.3) Total Protein 5.3 g/dL (6.4-8.2) Albumin 2.7 g/dL (3.4-5.0) Albumin/Globulin Ratio 1.0 (1.0-1.7) Laboratory Tests Test 07/19/21 14:55 White Blood Count 5.1 x10^3/uL (4.0-11.0) Red Blood Count 3.97 x10^6/uL (4.30-5.70) Hemoglobin 10.4 g/dL (13.0-17.5) Hematocrit 32.2 % (39.0-53.0) Mean Corpuscular Volume 81 fL (79-100) Mean Corpuscular Hemoglobin 26 pg (25-35) Mean Corpuscular Hemoglobin Concent 32 g/dL (31-37) Red Cell Distribution Width 21.9 % (11.5-14.5) Platelet Count 278 x10^3/uL (140-400) Neutrophils (%) (Auto) 84 % (31-73) Lymphocytes (%) (Auto) 2 % (24-48) Monocytes (%) (Auto) 14 % (0-9) Eosinophils (%) (Auto) 0 % (0-3) Basophils (%) (Auto) 1 % (0-3) Neutrophils # (Auto) 4.2 x10^3/uL (1.8-7.7) Lymphocytes # (Auto) 0.1 x10^3/uL (1.0-4.8) Monocytes # (Auto) 0.7 x10^3/uL (0.0-1.1) Eosinophils # (Auto) 0.0 x10^3/uL (0.0-0.7) Basophils # (Auto) 0.0 x10^3/uL (0.0-0.2) Segmented Neutrophils % 64 % (35-66) Band Neutrophils % 21 % (0-9) Lymphocytes % 1 % (24-48) Monocytes % 14 % (0-10) Toxic Granulation Slight Dohle Bodies Present Platelet Estimate Adequate (ADEQUATE) Polychromasia Slight Poikilocytosis Slight Anisocytosis Mod Ovalocytes Few Sodium Level 138 mmol/L (136-145) Potassium Level 2.8 mmol/L (3.5-5.1) Chloride Level 101 mmol/L (98-107) Carbon Dioxide Level 29 mmol/L (21-32) Anion Gap 8 (6-14) Blood Urea Nitrogen 18 mg/dL (8-26) Creatinine 1.1 mg/dL (0.7-1.3) Estimated GFR (Cockcroft-Gault) 67.4 BUN/Creatinine Ratio 16 (6-20) Glucose Level 159 mg/dL (70-99) Lactic Acid Level 3.6 mmol/L (0.4-2.0) Calcium Level 8.8 mg/dL (8.5-10.1) Total Bilirubin 0.3 mg/dL (0.2-1.0) Aspartate Amino Transf (AST/SGOT) 27 U/L (15-37) Alanine Aminotransferase (ALT/SGPT) 73 U/L (16-63) Alkaline Phosphatase 61 U/L (46-116) C-Reactive Protein, Quantitative 37.0 mg/L (0-3.3) Total Protein 5.3 g/dL (6.4-8.2) Albumin 2.7 g/dL (3.4-5.0) Albumin/Globulin Ratio 1.0 (1.0-1.7) Images Images PATIENT: LOBO SINGH ACCOUNT: [id number] : 1955 LOCATION: ED HOLD AGE: 65 SEX: M EXAM STATUS: ADM IN ORD. PHYSICIAN: EVAN WALTERS APRN REASON: SWELLING, WOUNDS PROCEDURE: VENOUS LOWER EXTREMITY LEFT STUDY: US DPLX VENOUS EXTREMITY LOWER LT INDICATION: Lower extremity swelling. Wounds. DVT. TECHNIQUE: Color-flow and pulsed wave duplex ultrasound with compression of venous structures of the left lower extremity. COMPARISON: 06/07/2018 FINDINGS: Significantly limited study due to patient body habitus. The veins were poorly visualized. Flow is maintained from the common femoral vein down into the calf. IMPRESSION: Very limited exam due to patient body habitus. The left lower extremity veins are not well visualized but there is no evidence for occlusive DVT as flow is able to be detected from the common femoral vein down to the calf. PATIENT: LOBO SINGH ACCOUNT: [id number] : 1955 LOCATION: ED HOLD AGE: 65 SEX: M EXAM STATUS: ADM IN ORD. PHYSICIAN: EVAN WALTERS APRN REASON: SWELLING, WOUNDS PROCEDURE: DUPLEX LOWER EXT ARTERIAL LEFT Study: US LEFT LOWER EXTREMITY ARTERIAL DUPLEX EVAL Indication: Swelling. Wounds. Comparison: None. Technique/Findings: Attempted duplex sonographic assessment of the left lower extremity arteries. Very limited study due to patient body habitus. Poor visualization of the arteries. Biphasic waveforms obtained from the common femoral artery to the distal superficial femoral artery. Monophasic waveforms from the popliteal artery down to the dorsalis pedis. Peak systolic velocity values aren't elevated but there is no abrupt change in velocity or severely increased velocity to indicate a hemodynamically significant stenosis. TRANSFORMATION SPECIALIST: 200 cm/s Deep femoral artery: 119 cm/s Proximal superficial femoral artery: 177 cm/s Mid superficial femoral artery: 143 cm/s Distal superficial femoral artery: 163 cm/s Popliteal artery: 131 cm/s Proximal posterior tibial artery: 134 cm/s Distal posterior tibial artery: 107 cm/s Peroneal artery: 129 cm/s Anterior tibial artery: 69 cm/s Dorsalis pedis: 104 cm/s Impression: 1. Significantly limited study due to patient body habitus. The arteries of the left lower extremity are poorly identified on the grayscale images. 2. Biphasic waveforms proximally and monophasic waveforms distally. Presumably there is peripheral arterial disease but the obtained flow velocities do not i ndicate a hemodynamically significant stenosis. VTE Prophylaxis Ordered VTE Prophylaxis Devices: No VTE Pharmacological Prophylaxi: Yes Assessment/Plan Assessment/Plan Sepsis Cellulitis Necrotizing fasciitis? Hypertensive urgency DM2 Super morbid obesity Severe malnutrition Plan: Patient requires hospital admission due to the extensiveness of the cellulitis and sepsis Received vancomycin in the ED; will continue treatment by adding Zosyn for broader coverage. Closely monitor kidney function Provide sepsis fluid bolus Ultrasound left lower quadrant pending to rule out DVT Upon reevaluation area previously marked erythema appears to have spread rather rapidly. Discussed with Dr. Patel in the ED; given concern for necrotizing fasciitis, will obtain CT lower extremity. IV hydralazine as needed. Denies any history of hypertension; will continue to monitor blood pressure. Basal/prandial insulin FEN - ADA diet PPX - Lovenox FULL CODE Dispo - inpatient for above Patient is (Blaire RussellAna) as surrogate decision-maker Critical care time 30 minutes spent reviewing charts, reviewing labs, reviewing imaging, discussion with Dr. Patel. Justifications for Admission Other Justification REBEKA TYLER MD Jul 19, 2021 16:22
[2021-07-19] MEDS: fentaNYL PF VIAL 100 MCG/2 ML VIAL IVP PRN ×3 (16:26→19:13)
[2021-07-19] MEDS ORDERED: IPRATRPIUM/ALBUTEROL 0.5/2.5MG 3 ML NEBU. NEB PRN (16:30)
[2021-07-19] MEDS: POTASSIUM CHLORIDE 20MEQ 100 ML IV SCH ×2 (16:30→21:40)
[2021-07-19] MEDS ORDERED: HYDROcodone/APAP 5/325MG 1 TAB TABLET PO PRN (16:30)
[2021-07-19] MEDS ORDERED: PIP/TAZO PER PHARMACY MC PRN (16:30)
[2021-07-19] MEDS ORDERED: oxyCODONE/APAP 5/325 1 TAB TABLET PO PRN ×2 (16:30)
[2021-07-19] MEDS ORDERED: ZOLPIDEM 5 MG TABLET. PO PRN (16:30)
[2021-07-19] MEDS ORDERED: CALCIUM CARBONATE 500 MG TAB.CHEW PO PRN (16:30)
[2021-07-19] MEDS ORDERED: ACETAMINOPHEN 325 MG TABLET. PO PRN (16:30)
[2021-07-19] MEDS ORDERED: MAG HYDROX/ALUMINUM HYD/SIMETH 30 ML ORAL.SUSP PO PRN (16:30)
[2021-07-19] MEDS ORDERED: MAGNESIUM HYDROXIDE 2,400 MG/30 ML ORAL.SUSP. PO PRN (16:30)
[2021-07-19] MEDS ORDERED: ONDANSETRON PF 4 MG/2 ML VIAL. IVP PRN ×2 (16:30→20:00)
[2021-07-19] MEDS ORDERED: ALBUTEROL SULFATE 2.5 MG/3 ML NEBU. NEB PRN (16:45)
[2021-07-19] MEDS ORDERED: DEXTROSE 50% 25 GM / 50ML DISP.SYRIN. IV PRN (16:45)
[2021-07-19] MEDS ORDERED: PIPERACILLIN/TAZOBACTAM 3.375 GM in IV NORMAL SALINE 50ML 50 ML IV SCH (17:00)
[2021-07-19] MEDS ORDERED: glipiZIDE 5 MG TABLET PO SCH (17:00)
[2021-07-19] MEDS ORDERED: MAGNESIUM SULFATE 2GM 50 ML IV ONE (17:00)
[2021-07-19] MEDS ORDERED: INSULIN LISPRO 300 UNITS/3 ML VIAL. SQ SCH (17:00)
[2021-07-19] MEDS ORDERED: IOHEXOL 300 MG/ML 100ML VIAL. IV ONE (17:45)
--- NOTE | 2021-07-19 18:00 | RAD ---
STUDY: US DPLX VENOUS EXTREMITY LOWER LT INDICATION: Lower extremity swelling. Wounds. DVT. TECHNIQUE: Color-flow and pulsed wave duplex ultrasound with compression of venous structures of the left lower extremity. COMPARISON: 06/07/2018 FINDINGS: Significantly limited study due to patient body habitus. The veins were poorly visualized. Flow is ma intained from the common femoral vein down into the calf. IMPRESSION: Very limited exam due to patient body habitus. The left lower extremity veins are not well visualized but there is no evidence for occlusive DVT as flow is able to be detected from the common femoral ve in down to the calf. Electronically signed by: KATHARINE BUSH MD (07/19/2021 5:57 PM) [id number]
--- NOTE | 2021-07-19 18:04 | RAD ---
Study: US LEFT LOWER EXTREMITY ARTERIAL DUPLEX EVAL Indication: Swelling. Wounds. Comparison: None. Technique/Findings: Attempted duplex sonographic assessment of the left lower extremity arteries. Very limited study due to patient body habitus. Poor visualization of the arteries. Biphasic waveforms obtained from the common femoral artery to the distal superficial femoral artery. Monophasic waveforms from the popliteal artery down to the dorsalis pedis. Peak systolic velocity mihaela ues aren't elevated but there is no abrupt change in velocity or severely increased velocity to indic ate a hemodynamically significant stenosis. SQL SERVER DEVELOPER: 200 cm/s Deep femoral artery: 119 cm/s Proximal superficial femoral artery: 177 cm/s Mid superficial femoral artery: 143 cm/s Distal superficial femoral artery: 163 cm/s Popliteal artery: 131 cm/s Proximal posterior tibial artery: 134 cm/s Distal posterior tibial artery: 107 cm/s Peroneal artery: 129 cm/s Anterior tibial artery: 69 cm/s Dorsalis pedis: 104 cm/s Impression: 1. Significantly limited study due to patient body habitus. The arteries of the left lower extremity are poorly identified on the grayscale images. 2. Biphasic waveforms proximally and monophasic waveforms distally. Presumably there is peripheral ar terial disease but the obtained flow velocities do not indicate a hemodynamically significant stenosi s. Electronically signed by: KATHARINE BUSH MD (07/19/2021 6:02 PM) [id number]
[2021-07-19 18:15] VITALS: BP 93/66
[2021-07-19] MEDS ORDERED: fentaNYL PF VIAL 100 MCG/2 ML VIAL IVP PRN (19:45)
[2021-07-19] MEDS ORDERED: HYDROmorphone 2 MG/ML VIAL IVP PRN ×2 (19:45→20:30)
[2021-07-19] MEDS ORDERED: GABAPENTIN 300 MG CAPSULE. PO SCH (21:00)
[2021-07-19] MEDS ORDERED: POTASSIUM CHLORIDE 20 MEQ TABLET.ER. PO SCH (21:00)
[2021-07-19] MEDS ORDERED: INSULIN GLARGINE SYRINGE. SQ SCH (21:00)
[2021-07-19] MEDS ORDERED: CLINDAMYCIN 900MG PREMIX 50 ML IV SCH (22:00)
[2021-07-19] MEDS ORDERED: ATROPINE 1 MG/10 ML DISP.SYRINGE. ONE (22:25)
[2021-07-19] MEDS ORDERED: EPINEPHrine SYRINGE 1 MG/10 ML SYRINGE ONE (22:25)
[2021-07-19] MEDS ORDERED: NALOXONE 0.4 MG/ML VIAL. ONE (22:25)
--- NOTE | 2021-07-19 22:55 | PDOC3 ---
Discharge Summary Visit Information Date of Admission: Jul 19, 2021 Date of Discharge: Jul 19, 2021 Final Diagnosis Problems Medical Problems: (1) Hypokalemia Status: Acute (2) Hypomagnesemia Status: Acute Brief Hospital Course Allergies Allergies Coded Allergies Type Severity Reaction Last Updated Verified venom-wasp Allergy Severe Anaphylaxis 07/19/21 Yes Vital Signs Vital Signs Date Time Temp Pulse Resp B/P (MAP) Pulse Ox O2 Delivery O2 Flow Rate FiO2 07/19/21 20:20 24 94 BiPAP/CPAP 07/19/21 18:15 97.6 101 93/66 (75) 97.6 Lab Results Laboratory Tests Test 07/19/21 14:55 07/19/21 18:50 07/19/21 21:33 White Blood Count 5.1 x10^3/uL (4.0-11.0) Red Blood Count 3.97 x10^6/uL (4.30-5.70) Hemoglobin 10.4 g/dL (13.0-17.5) Hematocrit 32.2 % (39.0-53.0) Mean Corpuscular Volume 81 fL (79-100) Mean Corpuscular Hemoglobin 26 pg (25-35) Mean Corpuscular Hemoglobin Concent 32 g/dL (31-37) Red Cell Distribution Width 21.9 % (11.5-14.5) Platelet Count 278 x10^3/uL (140-400) Neutrophils (%) (Auto) 84 % (31-73) Lymphocytes (%) (Auto) 2 % (24-48) Monocytes (%) (Auto) 14 % (0-9) Eosinophils (%) (Auto) 0 % (0-3) Basophils (%) (Auto) 1 % (0-3) Neutrophils # (Auto) 4.2 x10^3/uL (1.8-7.7) Lymphocytes # (Auto) 0.1 x10^3/uL (1.0-4.8) Monocytes # (Auto) 0.7 x10^3/uL (0.0-1.1) Eosinophils # (Auto) 0.0 x10^3/uL (0.0-0.7) Basophils # (Auto) 0.0 x10^3/uL (0.0-0.2) Segmented Neutrophils % 64 % (35-66) Band Neutrophils % 21 % (0-9) Lymphocytes % 1 % (24-48) Monocytes % 14 % (0-10) Toxic Granulation Slight Dohle Bodies Present Platelet Estimate Adequate (ADEQUATE) Polychromasia Slight Poikilocytosis Slight Anisocytosis Mod Ovalocytes Few Erythrocyte Sedimentation Rate 13 (0-15) Sodium Level 138 mmol/L (136-145) Potassium Level 2.8 mmol/L (3.5-5.1) Chloride Level 101 mmol/L (98-107) Carbon Dioxide Level 29 mmol/L (21-32) Anion Gap 8 (6-14) Blood Urea Nitrogen 18 mg/dL (8-26) Creatinine 1.1 mg/dL (0.7-1.3) Estimated GFR (Cockcroft-Gault) 67.4 BUN/Creatinine Ratio 16 (6-20) Glucose Level 159 mg/dL (70-99) Lactic Acid Level 3.6 mmol/L (0.4-2.0) 6.2 mmol/L (0.4-2.0) Calcium Level 8.8 mg/dL (8.5-10.1) Magnesium Level 1.7 mg/dL (1.8-2.4) Total Bilirubin 0.3 mg/dL (0.2-1.0) Aspartate Amino Transf (AST/SGOT) 27 U/L (15-37) Alanine Aminotransferase (ALT/SGPT) 73 U/L (16-63) Alkaline Phosphatase 61 U/L (46-116) C-Reactive Protein, Quantitative 37.0 mg/L (0-3.3) Total Protein 5.3 g/dL (6.4-8.2) Albumin 2.7 g/dL (3.4-5.0) Albumin/Globulin Ratio 1.0 (1.0-1.7) Glucose (Fingerstick) 100 mg/dL (70-99) Laboratory Tests Test 07/19/21 14:55 07/19/21 18:50 07/19/21 21:33 White Blood Count 5.1 x10^3/uL (4.0-11.0) Red Blood Count 3.97 x10^6/uL (4.30-5.70) Hemoglobin 10.4 g/dL (13.0-17.5) Hematocrit 32.2 % (39.0-53.0) Mean Corpuscular Volume 81 fL (79-100) Mean Corpuscular Hemoglobin 26 pg (25-35) Mean Corpuscular Hemoglobin Concent 32 g/dL (31-37) Red Cell Distribution Width 21.9 % (11.5-14.5) Platelet Count 278 x10^3/uL (140-400) Neutrophils (%) (Auto) 84 % (31-73) Lymphocytes (%) (Auto) 2 % (24-48) Monocytes (%) (Auto) 14 % (0-9) Eosinophils (%) (Auto) 0 % (0-3) Basophils (%) (Auto) 1 % (0-3) Neutrophils # (Auto) 4.2 x10^3/uL (1.8-7.7) Lymphocytes # (Auto) 0.1 x10^3/uL (1.0-4.8) Monocytes # (Auto) 0.7 x10^3/uL (0.0-1.1) Eosinophils # (Auto) 0.0 x10^3/uL (0.0-0.7) Basophils # (Auto) 0.0 x10^3/uL (0.0-0.2) Segmented Neutrophils % 64 % (35-66) Band Neutrophils % 21 % (0-9) Lymphocytes % 1 % (24-48) Monocytes % 14 % (0-10) Toxic Granulation Slight Dohle Bodies Present Platelet Estimate Adequate (ADEQUATE) Polychromasia Slight Poikilocytosis Slight Anisocytosis Mod Ovalocytes Few Erythrocyte Sedimentation Rate 13 (0-15) Sodium Level 138 mmol/L (136-145) Potassium Level 2.8 mmol/L (3.5-5.1) Chloride Level 101 mmol/L (98-107) Carbon Dioxide Level 29 mmol/L (21-32) Anion Gap 8 (6-14) Blood Urea Nitrogen 18 mg/dL (8-26) Creatinine 1.1 mg/dL (0.7-1.3) Estimated GFR (Cockcroft-Gault) 67.4 BUN/Creatinine Ratio 16 (6-20) Glucose Level 159 mg/dL (70-99) Lactic Acid Level 3.6 mmol/L (0.4-2.0) 6.2 mmol/L (0.4-2.0) Calcium Level 8.8 mg/dL (8.5-10.1) Magnesium Level 1.7 mg/dL (1.8-2.4) Total Bilirubin 0.3 mg/dL (0.2-1.0) Aspartate Amino Transf (AST/SGOT) 27 U/L (15-37) Alanine Aminotransferase (ALT/SGPT) 73 U/L (16-63) Alkaline Phosphatase 61 U/L (46-116) C-Reactive Protein, Quantitative 37.0 mg/L (0-3.3) Total Protein 5.3 g/dL (6.4-8.2) Albumin 2.7 g/dL (3.4-5.0) Albumin/Globulin Ratio 1.0 (1.0-1.7) Glucose (Fingerstick) 100 mg/dL (70-99) Brief Hospital Course Mr. Pineda is a 65 old male who presented with: Sepsis Cellulitis Necrotizing fasciitis? Hypertensive urgency DM2 Super morbid obesity Severe malnutrition Patient 65-year-old male past medical history multiple myeloma on chemotherapy, DM2, morbid obesity, who presents to the ED with complaints of worsening erythema to his left lower extremity. States he fell asleep with his shoes on and must of scratched his left lower leg with a Velcro. When he woke up he noted pain, redness, and swelling to his posterior left lower extremity. 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 He receives chemotherapy once monthly and takes prednisone 40 mg once weekly. Currently he reports pain 10/10. did note some clear drainage to his anterior rob, but none was able to be expressed in the ED. Labs on admission showed WBC 5.1, hemoglobin 10.4, hematocrit 32.2, potassium 2.8, CBG 159, lactic acid 3.6, CRP 37, albumin 2.7. He received potassium chloride/water, vancomycin, zosyn, clindamycin, and sepsis fluid bolus in the ED. NICO FUCHS was called on the medical floors when patient was found unresponsive, PEA. ER attending responded and patient was coded appropriately, unfortunately he at 2245. Discharge Information Condition at Discharge: / Disposition/Orders: Scheduled Acyclovir (Acyclovir) 800 Mg Tablet, 1 TAB PO BID for rx, #50 (Reported) Entered as Reported by: DANIELLE HARVEY on 05/15/19 0844 Amlodipine Besylate (Amlodipine Besylate) 10 Mg Tablet, 10 MG PO DAILY for HTN, (Reported) Entered as Reported by: DANIELLE HARVEY on 05/15/19 0905 Last Action: Continued on 07/19/211626 by REBEKA TYLER MD Aspirin (Aspirin) 325 Mg Tablet, 1 TAB PO DAILY for heart health, #90 Ref 3 (Reported) Entered as Reported by: JUVENAL WILLIAM on 06/10/20 0948 Last Action: Continued on 07/19/211626 by REBEKA TYLER MD Azelastine Hcl (Azelastine Hcl) 137 Mcg/0.137 Ml [place].pump, 1 SPRAY NS DAILY for rx, #90 Ref 3 (Reported) Entered as Reported by: DANIELLE HARVEY on 05/15/19 09 Calcium Carbonate (Calcium Carbonate) 500 Mg Tablet, 600 MG PO BID for rx, (Reported) Entered as Reported by: DANIELLE HARVEY on 05/15/19 0914 Clindamycin Hcl (Clindamycin Hcl) 300 Mg Capsule, 1 CAP PO TID, #21 Prescribed by: WANDA MICHEL MD on 04/20/21 0157 Cyanocobalamin/Folic Acid (Vitamin O20-Ycuyy Acid Tablet) 1 Each Tablet, 500 MCG PO DAILY for supplement for 30 Days, Ref 0 (Reported) Entered as Reported by: JUVENAL WILLIAM on 06/10/20 0951 Dexamethasone (Decadron) 4 Mg Tablet, 40 MG PO 3 Tuesday/ for multiple myeloma, (Reported) Entered as Reported by: JUVENAL WILLIAM on 06/10/20 0945 Dulaglutide (Trulicity) 1.5 Mg/0.5 Ml Pen.injctr, 1.5 MG SQ WEEKLY for diabetes, (Reported) Entered as Reported by: Elva De La Cruz on 12/11/20 1117 Fexofenadine/Pseudoephedrine (Aylin-D 24 Hour Tablet) 1 Each Tab.er.24h, 1 TAB PO DAILY for allergies, #30 Ref 2 (Reported) Entered as Reported by: DANIELLE HARVEY on 05/15/19 09 Fluticasone Propionate (Fluticasone Propionate Nasal [place]) 16 Gm [place].susp, 1 SPRAY NS DAILY for rx, #1 Ref 11 (Reported) Entered as Reported by: DANIELLE HARVEY on 05/15/19 0905 Furosemide (Lasix) 40 Mg Tablet, 1 TAB PO DAILY for fluid retention for 30 Days, #30 Ref 0 (Reported) Entered as Reported by: JUVENAL WILLIAM on 06/10/20 0941 Furosemide (Lasix) 20 Mg Tablet, 1 TAB PO AFTRNOON for diuretic for 30 Days, #30 Ref 0 (Reported) Entered as Reported by: Elva De La Cruz on 12/11/20 1117 Gabapentin (Gabapentin ) 300 Mg Capsule, 300 MG PO BID for NEUROGENIC PAIN, (Reported) Entered as Reported by: DANIELLE HARVEY on 05/15/19843 Last Action: Continued on 07/19/211626 by REBEKA TYLER MD Glipizide (Glipizide) 5 Mg Tablet, 1 TAB PO BID for high blood sugar, #60 Ref 3 (Reported) Entered as Reported by: DANIELLE HARVEY on 05/15/19843 Last Action: Continued on 07/19/211626 by REBEKA TYLER MD Insulin Glargine,Hum.rec.anlog (Lantus Solostar) 100 Unit/1 Ml Insuln.pen, 0 SQ QHS for Diabetes Mellitus, #15 Ref 3 (Reported) Entered as Reported by: JUVENAL WILLIAM on 06/10/20 0946 Insulin Lispro (Humalog) 100 Unit/1 Ml Vial, 0 SQ TIDAC for diabetes mellitus, (Reported) Entered as Reported by: JUVENAL WILLIAM on 06/10/20 0951 Latanoprost (Latanoprost) 2.5 Ml Drops, 1 DROP EACHEYE QHS for glaucoma, #7.5 Ref 3 (Reported) Entered as Reported by: JUVENAL WILLIAM on 06/10/20 0952 Magnesium Oxide (Magnesium Oxide) 400 Mg Tablet, 1 TAB PO DAILY for rx, #30 Ref 5 (Reported) Entered as Reported by: MALA MCDONALD on 11/01/19 0914 Metformin Hcl (Metformin Hcl) 1,000 Mg Tablet, 1,000 MG PO BIDWMEALS for high blood sugars, (Reported) Entered as Reported by: DANIELLE HARVEY on 05/15/19 08 Olmesartan/Hydrochlorothiazide (Benicar Hct 40-12.5 Mg Tablet) 1 Each Tablet, 1 TAB PO DAILY for HTN, #30 Ref 5 (Reported) Entered as Reported by: DANIELLE HARVEY on 05/15/19 0905 Pomalidomide (Pomalyst) 4 Mg Capsule, 1 CAP PO DAILY for rx for 21 Days, #21 Ref 0 (Reported) Entered as Reported by: MALA MCDONALD on 11/01/19 0901 Potassium Chloride (Klor-Con M10) 10 Meq Tab.er.prt, 40 MEQ PO BID for hypokalemia, (Reported) Entered as Reported by: JUVENAL WILLIAM on 06/10/20 0948 Last Action: Converted on 07/19/211626 by REBEKA TYLER MD Prednisone (Prednisone) 20 Mg Tablet, 40 MG PO WEEKLY for myloma, (Reported) Entered as Reported by: OLY AJ on 01/30/21 1128 Scheduled PRN Albuterol Sulfate (Ventolin Hfa Inhaler) 18 Gm Hfa.aer.ad, 2 PUFF INH PRN TID PRN for WHEEZING, Ref 0 (Reported) Entered as Reported by: DANIELLE HARVEY on 05/15/19 0905 Last Action: Converted on 07/19/211626 by REBEKA TYLER MD Ipratropium [place] (Ipratropium [place]) 0.2 Mg/1 Ml Solution, 1 VIAL NEB PRN QID PRN for WHEEZING, #300 Ref 5 (Reported) Entered as Reported by: JUVENAL WILLIAM on 06/10/20 0955 Miscellaneous Medications [ipratropium-albu] , (Reported) Entered as Reported by: JUVENAL WILLIAM on 06/10/20 09 Justicifation of Admission Dx: Justifications for Admission: Justification of Admission Dx: Yes REBEKA TYLER MD Jul 19, 2021 22:55
--- NOTE | 2021-07-19 23:06 | PDOC5 ---
CODE REPORT CODE REPORT Respond to [facility] on the 6 floor at room 663, upon arrival to room patient was in PEA, CPR was in progress. Patient was resuscitated per ACLS protocol, ROSC was achieved briefly but lost again. Patient was in asystole, patient was intubated by this physician via rapid sequence intubation. Patient was resuscitated by ACLS protocol for about 25 minutes, No ROSC. Patient was in asystole. Patient was pronounced by this physician on July 19, 2021 at 1025 pm, informed ATTENDING PHYSICIAN DR. REBEKA TYLER. Indication: Respiratory failure Consent: Unable to give consent due to emergent nature. Medications Used: see nursing note Procedure: The patient was placed in the appropriate position. Intubation was performed BY THIS PHYSICIAN USING GLIDE SCOPE, CORD VISUALIZED METHOD, ET TUBE # 7.5, SECURED AT 26 AT LIP, Initial confirmation of placement included b ilateral breath sounds, tube fogging, adequate chest rise, adequate pulse oximetry reading. INTUBATION WAS CARRIED OUT WHILE PATIENT WAS BEING RESUSCITATED. Complications: First intubation was in gastric tract. Patient was intubated second time, in trachea, placement confirmed as above. DIFFICULT INTUBATION DUE TO PATIENT WITH SHORT NECK AND MORBIDLY OBESE. TERA KENNY DO Jul 19, 2021 23:06
--- NOTE | 2021-07-20 00:41 | NUR ---
Patient admitted prior to shift change. Dx Cellulitis. A/O x 4 on admit to unit. [facility] [place] called at 2218. Please see [facility] documentation. Time of 2245. Spoke to Farida at [facility], . Patient not donor candidate r/t history of multiple myeloma. Family request autopsy. Dr Dempsey agrees with autopsy. Called [facility], . No answer at [facility], left message on answer machine. Waiting for call back.
--- NOTE | 2021-07-20 01:12 | RAD ---
CT left lower extremity with contrast dated 07/19/2021. No comparison available. CLINICAL INDICATION: Leg edema and soft tissue infection. Evaluate for abscess. TECHNIQUE: Contiguous axial imaging the left lower extremity performed from the knee to the ankle. 75 cc Omnipaq ue 300. Thin cut coronal and sagittal reconstruction. One or more of the following individualized dose reduction techniques were utilized for this examinat ion: 1. Automated exposure control 2. Adjustment of the mA and/or kV according to patient size 3. Use of iterative reconstruction technique. FINDINGS: There is extensive edema throughout the subcutaneous tissues of the calf, greatest at the ankle. No w ell-circumscribed fluid collection to suggest abscess. No soft tissue gas. There is scattered subcuta neous calcifications. Moderate generalized muscle atrophy and volume loss. Mild to moderate degenerative change of the knee joint with asymmetric medial joint space narrowing. Osseous structures otherwise intact. No periostitis or bone destruction. No apparent knee joint effus ion. There is a prominent spur off the lateral calcaneus. The calf arteries are not well evaluated du e to poor propagation of contrast bolus. Greater saphenous vein is patent. IMPRESSION: 1. Extensive subcutaneous edema throughout the left calf and ankle, nonspecific. Consider generalized cellulitis. Neurogenic or vascular causes of edema are also possible. There is no evidence of absces s. 2. Moderate DJD left knee, greatest in the medial compartment. 3. No acute bony abnormality. No evidence of osteomyelitis. 4. Generalized muscle atrophy. Electronically signed by: David Nieves MD (07/20/2021 1:10 AM) [facility]
[2021-07-20] MEDS ORDERED: ASPIRIN 325 MG TABLET PO SCH (09:00)
== END 2021-07-19 22:45 | DRG 871 ==
LOC: ER 13:15 → ED HOLD 16:00 → 6 SOUTH 17:20
PROVIDERS: ADMIT Family Medicine; ATTEND Family Medicine
PROC: 5A09357 Assistance with Respiratory Ventilation, Less than 24 Consecutive Hours, Continuous Positive Airway Pressure (ICD-10-PCS; principal; 2021-07-19)
PROC: 5A12012 Performance of Cardiac Output, Single, Manual (ICD-10-PCS; 2021-07-19)
DX: A41.9 Sepsis, unspecified organism (principal); E43 Unspecified severe protein-calorie malnutrition; Z68.44 Body mass index [BMI] 60.0-69.9, adult; L03.90 Cellulitis, unspecified; E87.6 Hypokalemia; E83.42 Hypomagnesemia; I16.0 Hypertensive urgency; E11.9 Type 2 diabetes mellitus without complications
CPT/HCPCS: 36415; 73701; 80053; 82962; 83605; 83735; 85007; 85025; 85651; 86140; 87040; 87071; 87075; 87077; 87106; 87186; 87205; 93926; 93971; 96365; 96366; 96375; J0171; J0461; J1170; J1815; J2310; J2543; J3010; J3370; J3475; J3480; J7030; J7040; Q9967; 99285-25; G0378